=== PATIENT | male | born 1930 | race Caucasian/White ===

== ENCOUNTER 2018-12-05 07:22 | Outpatient (CLI) | payer MEDICARE ==
--- NOTE | 2018-12-05 08:34 | RAD ---
CHEST 1 VIEW: INDICATION: History of fever and shortness of breath. COMPARISON: Prior study dated 12/15/2012. FINDINGS: Elevation of the right hemidiaphragm and right basilar atelectasis persist. Cardiomegaly is similar- appearing. There is obscuration of the medial left hemidiaphragm which may be reflective of a retroc ardiac left lower lobe airspace opacity. The pulmonary vasculature is within normal limits. The lef t costophrenic angle is excluded. Chronic osseous changes are again noted. IMPRESSION: 1. Retrocardiac left lower lobe opacity may reflect subsegmental atelectasis or pneumonia. Two-view chest radiograph is recommended. 2. Persistent elevated right hemidiaphragm and right basilar atelectasis. 3. Cardiomegaly. POS: TPC
== END 2018-12-05 07:23 | disposition home or self-care (01) ==
LOC: RAD-FRANK 07:22
PROVIDERS: ATTEND Nurse Practitioner Family
DX: R06.02 Shortness of breath (principal); R50.9 Fever, unspecified; J98.11 Atelectasis; I51.7 Cardiomegaly; J98.6 Disorders of diaphragm
CPT/HCPCS: 71045; 71046

== ENCOUNTER 2018-12-05 10:45 | Inpatient (IN) | payer MEDICARE ==
[2018-12-05 11:28] LABS: Hemoglobin 14.2 g/dL (14.0-18.0); Mean Corpuscular HGB CONC 32.4 g/dL (32.0-36.0); Mean Corpuscular Hemoglobin 32.7 pg (27.0-31.0); Mean Platelet Volume 7.3 fL (7.4-10.4); Platelet Count 165 thou/uL (130-400); RBC Distribution Width 12.5 % (11.5-14.5); Red Blood Cell (RBC) Count 4.34 mill/uL (4.70-6.10); White Blood Cell (WBC) Count 11.5 thou/uL (4.8-10.8)
--- NOTE | 2018-12-05 11:37 | RAD ---
FXR Chest 1 View Portable History: Productive cough and shortness of breath Comparison: 12/15/2012 study Findings: Heart size is enlarged with postop sternotomy changes. There is elevation to the right elizabeth diaphragm. There appear to be some retrocardiac parenchymal change, this would be better assessed wit h a lateral view this suggests some infiltrate in this region. There are no signs of failure. Impression: Suggestion of some possible retrocardiac parenchymal infiltrate.
[2018-12-05 11:41] LABS: ALT (SGPT) 138 U/L (8-55); AST (SGOT) 137 U/L (5-34); Albumin 4.1 g/dL (3.4-4.8); Alkaline Phosphatase 64 U/L (40-150); Anion Gap 13 mmol/L (10-20); BUN (Urea Nitrogen) 27 mg/dL (8.4-25.7); Bilirubin, Total 0.7 mg/dL (0.2-1.2); CK (CPK) 498 U/L (30-200); Calc. Creatinine Clearance 0 mL/min (70-130); Calcium 9.6 mg/dL (7.8-10.44); Carbon Dioxide 28 mmol/L (23-31); Chloride 100 mmol/L (98-107); Estimated GFR-MDRD 43; Globulin 2.9 g/dL (2.4-3.5); Glucose 134 mg/dL (83-110); Potassium 4.1 mmol/L (3.5-5.1); Sodium 137 mmol/L (136-145)
[2018-12-05 11:48] LABS: Band 13 % (5-11); Lymphocytes 1 % (21-51); MDiff Complete? YES; Monocytes 2 % (0-10); Neutrophil 84 % (42-75); Platelet Morphology Comment Appears Adequate
--- NOTE | 2018-12-05 11:58 | RAD ---
FXR Chest 1 View Portable History: Possible retrocardiac infiltrate noted on chest x-ray Comparison: AP chest film done earlier Findings: The elevation to the right hemidiaphragm still makes it difficult to evaluate for retrocard iac infiltrate although slight increased density makes me suspicious there is some minimal infiltrate present. There appear to be compression changes of one of the lower thoracic vertebral bodies. The bones are v antonio demineralized. Impression: The lateral film does not definitively show a retrocardiac infiltrate but I'm still mildl y suspicious given the increased density. Overlap with the right hemidiaphragm makes assessment diffi cult.
[2018-12-05 12:15] LABS: CKMB 13.7 ng/mL (0-6.6)
[2018-12-05] MEDS ORDERED: cefTRIAXone\\ROCEPHIN 2 GM VIAL ONE (12:15)
[2018-12-05] MEDS ORDERED: Acetaminophen 325 MG TAB PO PRN (12:26)
[2018-12-05] MEDS ORDERED: Aspirin Chewable 81 MG TAB ONE (12:49)
[2018-12-05] MEDS ORDERED: Enoxaparin Sodium 60 MG/0.6 ML SYRINGE ONE (12:53)
[2018-12-05] MEDS ORDERED: methylPREDNISolone Sod Succ/PF 125 MG/2 ML VIAL IVP SCH (13:15)
[2018-12-05] MEDS ORDERED: Sodium Chloride 0.9% 1,000 ML IV SCH (13:15)
[2018-12-05] MEDS ORDERED: methylPREDNISolone Sod Succ/PF 125 MG/2 ML VIAL ONE (13:54)
[2018-12-05 15:06] LABS: Lactic Acid 2.2 mmol/L (0.5-2.2)
[2018-12-05 15:11] LABS: Troponin I 1.332 ng/mL (< 0.028)
[2018-12-05] MEDS ORDERED: cefTRIAXone Sodium 1 MG in Syringe 0 ML IVPB SCH (15:30)
[2018-12-05] MEDS ORDERED: Pantoprazole 40 MG VIAL ONE (15:39)
[2018-12-05] MEDS: Azithromycin 500 MG in Sodium Chloride 0.9% 250 ML 250 ML IVPB SCH (16:18)
[2018-12-05 17:35] VITALS: BMI 22.9
[2018-12-05 18:15] LABS: Critical Call Chem Troponin I RESULT DECREASING; Troponin I 1.287 ng/mL (< 0.028)
[2018-12-05] MEDS: Pantoprazole 40 MG VIAL IVP SCH (20:15)
[2018-12-05] MEDS: Enoxaparin Sodium 60 MG/0.6 ML SYRINGE SC SCH (20:15)
--- NOTE | 2018-12-05 21:50 | HP ---
CHIEF COMPLAINT: Shortness of breath. HISTORY OF PRESENT ILLNESS: The patient is an 88-year-old male with a history of CAD, who presents to the hospital with worsening shortness of breath x1 day. The patient's son who is at the bedside states that he has been having a cough and has been feeling weak for about a week. He went to the PCP on Saturday, got some antibiotics and steroids. However, the patient's symptoms worsened. This morning, the patient called his son stating that he was feeling unwell and when the son got there, the patient was wheezing and did not appear well, so he brought him to the hospital for further evaluation. PAST MEDICAL HISTORY: He has a history of CAD, hypertension, peptic ulcer disease, atrial fibrillation, currently rate controlled. PAST SURGICAL HISTORY: He has had a CABG and hip surgery. ALLERGIES: HE HAS NO KNOWN DRUG ALLERGIES. MEDICATIONS: 1. Amiodarone 200 mg daily. 2. Protonix 40 mg daily. 3. Aspirin 81 mg daily. 4. Lisinopril 20 mg daily. FAMILY HISTORY: No significant history of heart disease or cancer. REVIEW OF SYSTEMS: All negative except for the ones mentioned above in the HPI. PHYSICAL EXAMINATION: VITAL SIGNS: Are as of the following; temperature of 98.6, respirations 23, 98% on 3 L, blood pressure 112/80, pulse 71. GENERAL: The patient is awake, alert, very hard of hearing. Oriented x2. Does appear in respiratory distress. CV: S1, S2 present. No murmurs, rubs, or gallops. LUNGS: Significant wheezing and rhonchi heard all over lungs. ABDOMEN: Soft. Bowel sounds are present x2. Nontender upon palpation. EXTREMITIES: No edema. Pedal pulses are present x2. NEUROVASCULAR: No focal deficits noted. SKIN: No cuts lesions or bruises noted. HEENT: The patient is very hard of hearing. Pupils are equal and reactive to light. ASSESSMENT AND PLAN: The patient is an 88-year-old male who presents to the hospital with shortness of breath. 1. Sepsis. The patient was given 1 L of normal saline given his low EF back in 2012. According to the patient's family, he recently had an echocardiogram, maybe a few months ago, which also indicated a low EF. The patient denies any chest pain. We will start the patient on community-acquired antibiotics with ceftriaxone and azithromycin. We will start the patient on some Solu-Medrol and also DuoNeb. 2. Ghh-[id number] elevation myocardial infarction. The patient does have some T-wave inversions. However, I do not have a previous EKG for comparison. He is complaining of chest pain only when he is coughing. He does not complain of any pressure-like symptoms. His troponins are continued to trend up. This could be most likely secondary to heart strain; however, I will consult Cardiology for further evaluation and also start the patient on some subcu Lovenox. 3. Acute kidney injury. We will continue to monitor. I will refrain from giving the patient additional fluids given his poor ejection fraction. 4. Deep venous thrombosis prophylaxis. We will put the patient on SCDs. 5. Also the patient has had a history of significant gastrointestinal bleed in the past. We will put the patient on Protonix IV. Job ID: [id number]
[2018-12-06 05:22] LABS: #Lymphocytes 0.2 thou/uL (1.20-3.40); #Monocytes 0.5 thou/uL (0.11-0.59); #Neutrophils 7.5 thou/uL (1.40-6.50); %Basophils 0.2 % (0.0-1.0); %Eosinophils 0.1 % (0.0-10.0); %Lymphocytes 2.5 % (21.0-51.0); %Neutrophils 91.2 % (42.0-75.0); Hemoglobin 13.1 g/dL (14.0-18.0); Mean Corpuscular Hemoglobin 32.3 pg (27.0-31.0); Mean Platelet Volume 7.6 fL (7.4-10.4); Platelet Count 138 thou/uL (130-400); RBC Distribution Width 12.7 % (11.5-14.5); Red Blood Cell (RBC) Count 4.04 mill/uL (4.70-6.10); White Blood Cell (WBC) Count 8.3 thou/uL (4.8-10.8)
[2018-12-06 05:41] LABS: Anion Gap 10 mmol/L (10-20); BUN (Urea Nitrogen) 26 mg/dL (8.4-25.7); Calc. Creatinine Clearance 40 mL/min (70-130); Calcium 9.2 mg/dL (7.8-10.44); Carbon Dioxide 30 mmol/L (23-31); Chloride 105 mmol/L (98-107); Estimated GFR-MDRD 47; Glucose 127 mg/dL (83-110); Potassium 4.2 mmol/L (3.5-5.1); Sodium 141 mmol/L (136-145)
[2018-12-06] MEDS ORDERED: methylPREDNISolone Sod Succ 40 MG VIAL IVP SCH (09:00)
[2018-12-06] MEDS: Pantoprazole 40 MG VIAL IVP SCH ×2 (09:18→20:32)
[2018-12-06] MEDS: Amiodarone 200 MG TAB PO SCH (09:18)
[2018-12-06] MEDS: Enoxaparin Sodium 60 MG/0.6 ML SYRINGE SC SCH ×2 (09:18→20:32)
[2018-12-06] MEDS: cefTRIAXone\\ROCEPHIN 1 GM in Sodium Chloride 0.9% 100 ML IVPB SCH (11:20)
[2018-12-06] MEDS ORDERED: Sodium Chloride 3% (15 ML) NEB NEB SCH (13:30)
--- NOTE | 2018-12-06 13:31 | PDOC.PN ---
- Subjective Encounter Start Date: 12/06/18 Encounter Start Time: 13:30 Subjective: admitted with worsening cough, SOB, weakness ans wheezing. -: found to have NSTEMI. -: Feeling better but still coughing. - Objective Resuscitation Status - Order Detail: 12/05/18 12:26 Resuscitation Status Routine Resuscitation Status: FULL: Full Resuscitation Vital Signs & Weight: Vital Signs (12 hours) Temp Pulse Resp Pulse Ox 12/06/18 10:56 58 L 22 H 98 12/06/18 10:31 98.1 F 12/06/18 07:56 95 12/06/18 07:28 100 12/06/18 07:26 73 29 H 100 12/06/18 07:06 98.1 F 12/06/18 04:00 98.4 F 12/06/18 02:32 70 25 H 94 L Weight Weight 169 lb Most Recent Monitor Data Heart Rate from ECG 75 NIBP 124/68 NIBP BP-Mean 86 Respiration from ECG 28 SpO2 93 I&O: 12/05/18 12/06/18 12/07/18 06:59 06:59 06:59 Intake Total 980 Output Total 1300 Balance -320 Result Diagrams: 12/06/18 04:49 12/06/18 04:50 Phys Exam - Physical Examination elderly male in no distress. afebrile HEENT: PERRLA, moist MMs Neck: supple fair air entry wuith transmitted sound and few rhonchi Cardiovascular: RRR Gastrointestinal: non-tender, positive bowel sounds Musculoskeletal: no edema, pulses present Neurological: non-focal, moves all 4 limbs Psychiatric: A&O x 3 Dx/Plan (1) Acute respiratory failure with hypoxia Code(s): J96.01 - ACUTE RESPIRATORY FAILURE WITH HYPOXIA Status: Acute (2) NSTEMI (non-ST elevated myocardial infarction) Code(s): I21.4 - NON-ST ELEVATION (NSTEMI) MYOCARDIAL INFARCTION Status: Acute (3) Sepsis Code(s): A41.9 - SEPSIS, UNSPECIFIED ORGANISM Status: Acute (4) HTN (hypertension) Code(s): I10 - ESSENTIAL (PRIMARY) HYPERTENSION Status: Acute (5) Paroxysmal atrial fibrillation with rapid ventricular response Code(s): I48.0 - PAROXYSMAL ATRIAL FIBRILLATION Status: Acute (6) BEAR (acute kidney injury) Code(s): N17.9 - ACUTE KIDNEY FAILURE, UNSPECIFIED Status: Acute - Plan Continue antibiotics, steroid, oxygen and bronchodilators -: Start gentle IV hydration -: Start mucolyics. -: Continue antithrombotic therapy for NSTEMI. -: Awaiting cardiology input. Monitor renal function. * .
--- NOTE | 2018-12-06 14:10 | CON ---
DATE OF CONSULTATION: 12/06/2018 REASON FOR CONSULTATION: Elevated troponin. PRIMARY POOLROOM TABLE ATTENDANT: Dr. Cassia Corbett. HISTORY OF PRESENT ILLNESS: Mr. Johnson is an 88-year-old gentleman with previous history of CAD, status post bypass surgery. He recently presented with increased cough and congestion. No chest pain or pressure noted. He also had associated shortness of breath. He states he currently is feeling a little better. His troponin was elevated, therefore prompting the consultation. PAST MEDICAL HISTORY: 1. CAD, status post bypass surgery. 2. Hypertension. 3. Peptic ulcer disease. 4. Atrial fibrillation. MEDICATIONS: Include; 1. Amiodarone. 2. Protonix. 3. Aspirin. 4. Lisinopril. ALLERGIES: NONE. FAMILY HISTORY: Negative for CAD. REVIEW OF SYSTEMS: A 10-point review of systems is reviewed and as above, otherwise negative. PHYSICAL EXAMINATION: GENERAL: Patient is a pleasant male, who is in no acute distress. The patient appears their stated age. He is currently hard of hearing. VITAL SIGNS: Blood pressure 124/68, pulse 59, temperature afebrile. NEUROLOGIC: The patient is alert and oriented x3 with no focal neurologic deficits. HEENT: Sclerae without icterus. Mouth has moist mucous membranes with normal pallor. NECK: No JVD. Carotid upstroke brisk. No bruits bilaterally. LUNGS: Clear to auscultation with unlabored respirations. BACK: No scoliosis or kyphosis. CARDIAC: Irregularly irregular. ABDOMEN: Soft, nontender, nondistended. No peritoneal signs present. No hepatosplenomegaly. No abnormal striae. EXTREMITIES: 2+ femoral and 2+ dorsalis pedis pulses. No cyanosis, clubbing, or edema. SKIN: No gross abnormalities. PERTINENT LABORATORY DATA: Hemoglobin 13.1. Creatinine 1.42. Peak troponin 1.3. Chest x-ray dated 12/05/2018, retrocardiac parenchymal infiltrate. IMPRESSION: 1. Pneumonia. 2. Coronary artery disease. 3. Status post bypass surgery. 4. Elevated troponin, likely type-2 myocardial infarction. RECOMMENDATIONS: We will continue conservative therapy. He has no current symptoms suggesting unstable angina or unstable plaque. We will continue amiodarone as prescribed. I am unsure why he is not on anticoagulation therapy. I will read his previous office notes. He is currently on Lovenox subcu q.12h, we will decrease to subcu q.a.m. Job ID: [id number]
[2018-12-06] MEDS: Azithromycin 500 MG in Sodium Chloride 0.9% 250 ML 250 ML IVPB SCH (14:57)
[2018-12-06] MEDS: Sodium Chloride 0.9% 1,000 ML IV SCH (14:58)
[2018-12-06] MEDS: Benzonatate 100 MG CAP PO SCH ×2 (14:58→20:31)
[2018-12-06] MEDS: Sodium Chloride 3% (15 ML) NEB NEB SCH ×2 (15:21→19:18)
[2018-12-06] MEDS: methylPREDNISolone Sod Succ 40 MG VIAL IVP SCH (17:53)
[2018-12-06] MEDS: guaiFENesin ER 600 MG TAB PO SCH (20:32)
[2018-12-06] MEDS ORDERED: guaiFENesin ER 600 MG TAB PO SCH (21:00)
[2018-12-07] MEDS: methylPREDNISolone Sod Succ 40 MG VIAL IVP SCH ×5 (00:17→23:49)
--- NOTE | 2018-12-07 01:46 | CON ---
DATE OF CONSULTATION: 12/06/2018 HISTORY OF PRESENT ILLNESS: Mr. Johnson is an 88-year-old male who is admitted with a diagnosis of pneumonia. He has a history of vascular disease/coronary artery disease. He has recently started antibiotics and steroids, but had not improved. Brought to the hospital and has been admitted to the intermediate care unit. He says he is feeling about the same. He is coughing continuously. PAST MEDICAL HISTORY: Remarkable for, 1. Coronary artery disease. 2. Hypertension. 3. Ulcer disease. 4. History of atrial fibrillation. 5. History of coronary artery bypass grafting. 6. History of hip surgery. ALLERGIES: HE HAS NO KNOWN DRUG ALLERGIES. MEDICATIONS: He is on amiodarone, Protonix, aspirin, lisinopril. FAMILY HISTORY: Negative for lung disease in early age. SOCIAL HISTORY: Unknown. REVIEW OF SYSTEMS: Ten-point review of systems complted, remarkable only for cough, mild shortness of breath. PHYSICAL EXAMINATION: GENERAL: He appears his age. VITAL SIGNS: He is afebrile. Heart rate is 58, respiratory rate is 19, oximetry is 97% on 2 L, blood pressure 108/57. HEAD: Unremarkable. NECK: Unremarkable. LUNGS: Remarkable for rhonchi bilaterally. HEART: Regular rhythm. S1 and S2 normal. ABDOMEN: Soft and nontender. EXTREMITIES: Without clubbing, cyanosis, or edema. LABORATORY DATA: White count 8.3, hemoglobin 13.1, platelets 138,000. Electrolytes are unremarkable. BUN 26, creatinine 1.42. BNP was 573. Chest radiograph shows an elevated hemidiaphragm. It is hard to know whether he has an infiltrate at his base but certainly acts like he has pneumonia. I doubt he has an amiodarone hypersensitivity reaction causing his symptoms. Some of this may be secondary to congestive heart failure as he does have patchy increasing interstitial markings bilaterally on chest x-ray. We will try to move forward with cough suppression, Mucinex and echocardiogram will be checked. We will continue with steroids and antibiotics. TIME SPENT: This is a 50-minute consult, with greater than 50% of the time spent on the unit coordinating care. Job ID: [id number] [facility] HOSPITALDaron
[2018-12-07] MEDS: Sodium Chloride 3% (15 ML) NEB NEB SCH (07:31)
[2018-12-07] MEDS: Enoxaparin Sodium 60 MG/0.6 ML SYRINGE SC SCH (09:02)
[2018-12-07] MEDS: Amiodarone 200 MG TAB PO SCH (09:02)
[2018-12-07] MEDS: Pantoprazole 40 MG VIAL IVP SCH ×2 (09:02→20:11)
[2018-12-07] MEDS: guaiFENesin ER 600 MG TAB PO SCH ×2 (09:02→20:11)
[2018-12-07] MEDS: Benzonatate 100 MG CAP PO SCH ×3 (09:04→20:10)
--- NOTE | 2018-12-07 11:21 | PDOC.CTH ---
Cardiology Progress Note - Subjective Mainly complaining of cough/ No CP - Objective Vital Signs Temp Pulse Resp BP Pulse Ox 12/07/18 10:36 62 20 99 12/07/18 08:00 98 12/07/18 07:30 57 L 20 97 12/07/18 04:00 97.8 F 60 24 H 106/50 L 97 12/07/18 02:43 59 L 15 97 12/07/18 00:56 96.8 F L Weight 169 lb 11.2 oz 12/06/18 12/07/18 12/08/18 06:59 06:59 06:59 Intake Total 980 870 Output Total 1300 1410 250 Balance -320 -540 -250 - Physical Examination General/Neuro: alert & oriented x3, NAD Neck: carotid US brisk, no JVD present Lungs: other: (rhonchi, rales bilaterally (R>L)) Heart: PMI normal, RRR Abdomen: no HSM, NT/ND Extremities: + femoral B - Labs Result Diagrams: 12/06/18 04:49 12/06/18 04:50 Troponin/CKMB CK-MB (CK-2) 13.7 ng/mL (0-6.6) H* 12/05/18 11:12 Troponin I 1.287 ng/mL (< 0.028) H* 12/05/18 17:37 - Assessment/Plan Type 2 OR CAD S/p CABG Pneumonia Atrial fibrillation No new recommendations Add ASA Avoid BB till lung status improves Abx
[2018-12-07] MEDS: Sodium Chloride 0.9% 1,000 ML IV SCH (11:55)
[2018-12-07] MEDS: cefTRIAXone\\ROCEPHIN 1 GM in Sodium Chloride 0.9% 100 ML IVPB SCH (11:55)
--- NOTE | 2018-12-07 12:21 | PRG ---
DATE OF SERVICE: 12/07/2018 SUBJECTIVE: Mr. Johnson is still coughing continuously. A lot of his cough to me sounds like a posterior pharyngeal drainage cough. OBJECTIVE: VITAL SIGNS: Heart rate is 62, respiratory rate is 20, oximetry is 99, and blood pressure 108/59. LUNGS: Remarkable for coarse equal breath sounds. HEART: Regular rhythm. ABDOMEN: Soft. EXTREMITIES: Without edema. NEURO: Grossly nonfocal. IMPRESSION: 1. Pneumonia with asthmatic bronchitis. 2. Component of upper airway cough. 3. Left ventricular systolic dysfunction, that is chronic. 4. History of coronary artery bypass grafting in the past. 5. Atrial fibrillation, on Lovenox once a day now. We will add scopolamine patch. We will add Robitussin with codeine around the clock. We will continue with Tessalon Perles around the clock. I will repeat a chest x-ray in the morning. We will continue with IV steroids. We will continue nebulizer treatments. I do not feel his cough is pulmonary edema mediated at this time, but there may be a component of this. We will continue to follow the other physicians caring for him. Job ID: [id number]
[2018-12-07] MEDS ORDERED: Ipratropium Bromide 0.06% Nasal Inhaler 15ml NASAL SCH (13:00)
--- NOTE | 2018-12-07 15:18 | PDOC.PN ---
- Subjective Encounter Start Date: 12/07/18 Encounter Start Time: 15:17 Subjective: Still with frequent cough and SOB. -: No fever of chest pain. - Objective Resuscitation Status - Order Detail: 12/05/18 12:26 Resuscitation Status Routine Resuscitation Status: FULL: Full Resuscitation Vital Signs & Weight: Vital Signs (12 hours) Temp Pulse Resp BP Pulse Ox 12/07/18 13:45 73 18 100 12/07/18 10:36 62 20 99 12/07/18 08:00 98 12/07/18 07:30 57 L 20 97 12/07/18 04:00 97.8 F 60 24 H 106/50 L 97 Weight Weight 169 lb 11.2 oz Most Recent Monitor Data Heart Rate from ECG 64 NIBP 108/59 NIBP BP-Mean 75 Respiration from ECG 19 SpO2 99 I&O: 12/06/18 12/07/18 12/08/18 06:59 06:59 06:59 Intake Total 980 870 Output Total 1300 1410 250 Balance -320 -540 -250 Result Diagrams: 12/06/18 04:49 12/06/18 04:50 Phys Exam - Physical Examination elderly male in some respiratory distrress HEENT: moist MMs Neck: no JVD, supple fair air entry with transmitted sound and scattered rhonchi Cardiovascular: irregular Gastrointestinal: soft, non-tender, positive bowel sounds Musculoskeletal: no edema Neurological: non-focal Awake and conversational. very hard of hearing Psychiatric: A&O x 3 Dx/Plan (1) Acute respiratory failure with hypoxia Code(s): J96.01 - ACUTE RESPIRATORY FAILURE WITH HYPOXIA Status: Acute (2) NSTEMI (non-ST elevated myocardial infarction) Code(s): I21.4 - NON-ST ELEVATION (NSTEMI) MYOCARDIAL INFARCTION Status: Acute (3) Sepsis Code(s): A41.9 - SEPSIS, UNSPECIFIED ORGANISM Status: Acute (4) HTN (hypertension) Code(s): I10 - ESSENTIAL (PRIMARY) HYPERTENSION Status: Acute (5) Paroxysmal atrial fibrillation with rapid ventricular response Code(s): I48.0 - PAROXYSMAL ATRIAL FIBRILLATION Status: Acute (6) BEAR (acute kidney injury) Code(s): N17.9 - ACUTE KIDNEY FAILURE, UNSPECIFIED Status: Acute - Plan Broaden antibiotic by substituting rocephin anad azithromycin with levaquin -: Increase LR to 75 cc/hr.Continue other treatments -: get repeat BMP. Continue steroid and bronchodilators * .
[2018-12-07] MEDS: Scopolamine 1.5 mg/72 hour Patch TD SCH (15:22)
[2018-12-07] MEDS: guaiFENesin/Codeine Phosphate 200 mg/20 mg 10 ml UD Cup PO SCH ×3 (15:22→20:10)
[2018-12-07 16:58] LABS: Anion Gap 13 mmol/L (10-20); BUN (Urea Nitrogen) 30 mg/dL (8.4-25.7); Calc. Creatinine Clearance 42 mL/min (70-130); Carbon Dioxide 28 mmol/L (23-31); Chloride 105 mmol/L (98-107); Estimated GFR-MDRD 50; Glucose 127 mg/dL (83-110); Potassium 4.9 mmol/L (3.5-5.1); Sodium 141 mmol/L (136-145)
[2018-12-08] MEDS: guaiFENesin/Codeine Phosphate 200 mg/20 mg 10 ml UD Cup PO SCH ×6 (00:37→20:38)
[2018-12-08 05:16] LABS: Anion Gap 9 mmol/L (10-20); BUN (Urea Nitrogen) 28 mg/dL (8.4-25.7); Calc. Creatinine Clearance 46 mL/min (70-130); Carbon Dioxide 33 mmol/L (23-31); Chloride 104 mmol/L (98-107); Estimated GFR-MDRD 56; Glucose 128 mg/dL (83-110); Potassium 4.8 mmol/L (3.5-5.1); Sodium 141 mmol/L (136-145)
[2018-12-08] MEDS: methylPREDNISolone Sod Succ 40 MG VIAL IVP SCH ×3 (05:59→17:34)
[2018-12-08] MEDS: Sodium Chloride 0.9% 1,000 ML IV SCH (06:06)
[2018-12-08] MEDS: Ipratropium Bromide 0.06% Nasal Inhaler 15ml NASAL SCH ×3 (06:30→20:41)
[2018-12-08] MEDS: Sodium Chloride 3% (15 ML) NEB NEB SCH (06:33)
[2018-12-08] MEDS: Amiodarone 200 MG TAB PO SCH (09:21)
[2018-12-08] MEDS: Aspirin 81 mg Enteric Coated Tablet PO SCH (09:22)
[2018-12-08] MEDS: Benzonatate 100 MG CAP PO SCH ×3 (09:22→20:38)
[2018-12-08] MEDS: guaiFENesin ER 600 MG TAB PO SCH ×2 (09:22→20:38)
[2018-12-08] MEDS: Enoxaparin Sodium 60 MG/0.6 ML SYRINGE SC SCH (09:23)
--- NOTE | 2018-12-08 10:37 | PDOC.PN ---
- Subjective Encounter Start Date: 12/08/18 Encounter Start Time: 10:36 Subjective: Still coughing but better. -: Remained afebrile. - Objective Resuscitation Status - Order Detail: 12/05/18 12:26 Resuscitation Status Routine Resuscitation Status: FULL: Full Resuscitation Vital Signs & Weight: Vital Signs (12 hours) Temp Pulse Resp BP Pulse Ox 12/08/18 10:29 97.6 F 12/08/18 10:11 74 19 100 12/08/18 09:27 81 18 137/79 99 12/08/18 08:00 64 20 153/81 H 99 12/08/18 07:15 64 21 H 99 12/08/18 07:08 97.6 F 12/08/18 04:00 98.0 F 61 20 120/57 L 99 12/08/18 02:30 63 19 94 L 12/08/18 02:00 56 L 16 108/55 L 98 12/08/18 00:00 75 21 H 119/80 97 12/07/18 23:45 97.6 F Weight Weight 169 lb 6.4 oz Most Recent Monitor Data Heart Rate from ECG 60 NIBP 108/55 NIBP BP-Mean 72 Respiration from ECG 18 SpO2 98 I&O: 12/07/18 12/08/18 12/09/18 06:59 06:59 06:59 Intake Total 870 2150 Output Total 1410 1470 Balance -540 680 Result Diagrams: 12/06/18 04:49 12/08/18 04:37 Phys Exam - Physical Examination afebrile, anicteric, no distress HEENT: PERRLA, moist MMs Neck: no JVD, supple fair air entry with scattered rhonchi Cardiovascular: RRR Gastrointestinal: soft, non-tender, no distention, positive bowel sounds Musculoskeletal: no edema, pulses present Neurological: non-focal, moves all 4 limbs Hard of hearing Psychiatric: A&O x 3 Dx/Plan (1) Acute respiratory failure with hypoxia Code(s): J96.01 - ACUTE RESPIRATORY FAILURE WITH HYPOXIA Status: Acute Comment: Improving. (2) NSTEMI (non-ST elevated myocardial infarction) Code(s): I21.4 - NON-ST ELEVATION (NSTEMI) MYOCARDIAL INFARCTION Status: Acute (3) Sepsis Code(s): A41.9 - SEPSIS, UNSPECIFIED ORGANISM Status: Acute (4) HTN (hypertension) Code(s): I10 - ESSENTIAL (PRIMARY) HYPERTENSION Status: Acute (5) Paroxysmal atrial fibrillation with rapid ventricular response Code(s): I48.0 - PAROXYSMAL ATRIAL FIBRILLATION Status: Acute (6) BEAR (acute kidney injury) Code(s): N17.9 - ACUTE KIDNEY FAILURE, UNSPECIFIED Status: Acute Comment: Improving with IVF - Plan Continue IV levaquin, steroid, bronchodilators and oxygen -: Continue cough suppressants. increase 3% nasal saline neb to q6h -: Monitor renal function. -: can be transfered out of IMCU -: Continue antithrombotic therapy * .
--- NOTE | 2018-12-08 11:42 | PRG ---
DATE OF SERVICE: 12/08/2018 SUBJECTIVE: Mr. Johnson is still coughing, but he says he is a little better. OBJECTIVE: VITAL SIGNS: He is afebrile, heart rate 74, respiratory rate 19, oximetry is 100%, blood pressure 137/79. Intake and output, positive 680. LUNGS: Remarkable for faint wheezes, crackles at both lung bases. HEART: Regular rhythm. ABDOMEN: Soft. IMPRESSION: 1. Asthmatic bronchitis. 2. Cardiomyopathy. 3. Pneumonia. 4. History of coronary artery bypass grafting. 5. Atrial fibrillation. PLAN: We will continue supportive care. Probably need to keep him in a little bit of a negative fluid balance if possible. His renal function is improving. He has acute on chronic renal dysfunction. Job ID: [id number]
--- NOTE | 2018-12-08 13:36 | PDOC.CTH ---
Cardiology Progress Note - Subjective The pt seen and examined. No overnight events. No cardiac complaints. He complains of mild CP with coughing only. - Objective Vital Signs Temp Pulse Resp BP Pulse Ox 12/08/18 11:54 84 21 H 145/83 H 92 L 12/08/18 10:29 97.6 F 12/08/18 10:11 74 19 100 12/08/18 09:27 81 18 137/79 99 12/08/18 08:00 64 20 153/81 H 99 12/08/18 07:15 64 21 H 99 12/08/18 07:08 97.6 F 12/08/18 04:00 98.0 F 61 20 120/57 L 99 12/08/18 02:30 63 19 94 L 12/08/18 02:00 56 L 16 108/55 L 98 Weight 169 lb 6.4 oz 12/07/18 12/08/18 12/09/18 06:59 06:59 06:59 Intake Total 870 2150 Output Total 1410 1470 Balance -540 680 - Physical Examination General/Neuro: alert & oriented x3 Neck: no JVD present Lungs: other: (coarses) Heart: RRR Abdomen: soft Extremities: other: (No edema) - Telemetry Telemetry Rhythm: SR - Labs Result Diagrams: 12/09/18 05:31 12/09/18 05:31 Troponin/CKMB CK-MB (CK-2) 13.7 ng/mL (0-6.6) H* 12/05/18 11:12 Troponin I 1.287 ng/mL (< 0.028) H* 12/05/18 17:37 - Assessment/Plan 1. NSTEMI 2/2 possible demand ischemia - stable; No ECG changed 2. PNA - on IV ABx; managed by PCP 3. CAD with s/p CABG x3 in 2012 - 4. Hx of Post-op Afib - in SR; on ASA 81mg qd and Amiodarone 200mg qd 5. HTN - stable; Avoid BB till lung status improves 6. Hyperlipidemia - on Statin MAR reviewed * Echo on 12/06/2018 with EF 35-40% (20-25% in 2017), mild-mod MR and mod TR. Pt. seen and eval. by me. I agree with the A/P by the FIELD SALES MANAGER. He is still coughing. Scattered rhonchi. RRR. Cardiac status is stable. gjm Review of Systems - Review of Systems Constitutional: reports: no symptoms reported EENTM: reports: no symptoms reported Respiratory: reports: see HPI Cardiac (ROS): reports: no symptoms reported ABD/GI: reports: no symptoms reported : reports: no symptoms reported
[2018-12-09] MEDS: guaiFENesin/Codeine Phosphate 200 mg/20 mg 10 ml UD Cup PO SCH ×6 (00:28→20:48)
[2018-12-09] MEDS: methylPREDNISolone Sod Succ 40 MG VIAL IVP SCH ×3 (00:29→13:15)
[2018-12-09] MEDS: Sodium Chloride 0.9% 1,000 ML IV SCH (00:47)
[2018-12-09 06:00] LABS: #Lymphocytes 0.4 thou/uL (1.20-3.40); #Monocytes 0.4 thou/uL (0.11-0.59); #Neutrophils 7.3 thou/uL (1.40-6.50); %Eosinophils 0.2 % (0.0-10.0); %Lymphocytes 5.2 % (21.0-51.0); %Monocytes 5.2 % (0.0-10.0); %Neutrophils 89.4 % (42.0-75.0); Hemoglobin 13.6 g/dL (14.0-18.0); Mean Corpuscular HGB CONC 30.6 g/dL (32.0-36.0); Mean Corpuscular Hemoglobin 31.9 pg (27.0-31.0); Mean Platelet Volume 7.2 fL (7.4-10.4); Platelet Count 185 thou/uL (130-400); RBC Distribution Width 12.5 % (11.5-14.5); Red Blood Cell (RBC) Count 4.27 mill/uL (4.70-6.10); White Blood Cell (WBC) Count 8.2 thou/uL (4.8-10.8)
[2018-12-09 06:12] LABS: Anion Gap 11 mmol/L (10-20); BUN (Urea Nitrogen) 29 mg/dL (8.4-25.7); Calc. Creatinine Clearance 51 mL/min (70-130); Calcium 9.3 mg/dL (7.8-10.44); Carbon Dioxide 33 mmol/L (23-31); Chloride 102 mmol/L (98-107); Estimated GFR-MDRD 62; Glucose 127 mg/dL (83-110); Sodium 141 mmol/L (136-145)
[2018-12-09] MEDS: Enoxaparin Sodium 60 MG/0.6 ML SYRINGE SC SCH (09:47)
[2018-12-09] MEDS: Amiodarone 200 MG TAB PO SCH (09:47)
[2018-12-09] MEDS: Benzonatate 100 MG CAP PO SCH ×3 (09:47→20:48)
[2018-12-09] MEDS: Aspirin 81 mg Enteric Coated Tablet PO SCH (09:47)
[2018-12-09] MEDS: Ipratropium Bromide 0.06% Nasal Inhaler 15ml NASAL SCH ×2 (09:47→20:54)
[2018-12-09] MEDS: guaiFENesin ER 600 MG TAB PO SCH ×2 (09:47→20:49)
--- NOTE | 2018-12-09 16:23 | PRG ---
DATE OF SERVICE: 12/09/2018 SUBJECTIVE: Mr. Johnson says his cough is finally better. OBJECTIVE: VITAL SIGNS: He is afebrile, heart rate is 58, respiratory rate is 20, oximetry is 100% on 2 L, blood pressure 116/61. LUNGS: Clear today. HEART: Regular rhythm. ABDOMEN: Soft. IMPRESSION: 1. Asthmatic bronchitis. 2. Pneumonia. 3. Elevated troponin likely demand ischemia. 4. Left ventricular systolic dysfunction with an ejection fraction of 35% to 40%, [id number] mitral regurgitation. This is not felt to be a significant contributing factor with this admission. PLAN: We will continue to follow the other physicians. He is stable to move out of the intermediate care unit in my opinion. There apparently have been no beds available. He remains anticoagulated with Lovenox. His Levaquin can be switched to p.o., steroids can be switched to p.o. in my opinion as well. I do not feel the amiodarone is contributing to his cough. Job ID: [id number]
--- NOTE | 2018-12-09 17:34 | PDOC.PN ---
- Subjective Encounter Start Date: 12/09/18 Encounter Start Time: 17:33 Subjective: Coughing is subsiding. Feeling better. -: no fever or sputumproduction. - Objective Resuscitation Status - Order Detail: 12/05/18 12:26 Resuscitation Status Routine Resuscitation Status: FULL: Full Resuscitation Vital Signs & Weight: Vital Signs (12 hours) Temp Pulse Resp Pulse Ox 12/09/18 14:49 97.0 F L 12/09/18 14:04 58 L 20 100 12/09/18 10:35 96.8 F L 12/09/18 10:10 105 H 18 93 L 12/09/18 08:15 97 12/09/18 07:31 100 12/09/18 07:30 72 23 H 100 12/09/18 07:10 97.0 F L Weight Weight 170 lb 3.2 oz Most Recent Monitor Data Heart Rate from ECG 66 NIBP 124/64 NIBP BP-Mean 84 Respiration from ECG 23 SpO2 97 I&O: 12/08/18 12/09/18 12/10/18 06:59 06:59 06:59 Intake Total 2150 2533 Output Total 1470 1560 1000 Balance 680 973 -1000 Result Diagrams: 12/09/18 05:31 12/09/18 05:31 Phys Exam - Physical Examination Constitutional: NAD HEENT: PERRLA, moist MMs Neck: no JVD fair air entry with scattered transmitted sound and few rhonchi Cardiovascular: RRR, no significant murmur Gastrointestinal: soft, non-tender, no distention, positive bowel sounds Musculoskeletal: no edema, pulses present Neurological: non-focal, moves all 4 limbs hard of hearing Psychiatric: A&O x 3 Dx/Plan (1) Acute respiratory failure with hypoxia Code(s): J96.01 - ACUTE RESPIRATORY FAILURE WITH HYPOXIA Status: Acute Comment: Improving. (2) NSTEMI (non-ST elevated myocardial infarction) Code(s): I21.4 - NON-ST ELEVATION (NSTEMI) MYOCARDIAL INFARCTION Status: Acute (3) Sepsis Code(s): A41.9 - SEPSIS, UNSPECIFIED ORGANISM Status: Acute (4) HTN (hypertension) Code(s): I10 - ESSENTIAL (PRIMARY) HYPERTENSION Status: Acute (5) Paroxysmal atrial fibrillation with rapid ventricular response Code(s): I48.0 - PAROXYSMAL ATRIAL FIBRILLATION Status: Acute Comment: Currently in sinus (6) BEAR (acute kidney injury) Code(s): N17.9 - ACUTE KIDNEY FAILURE, UNSPECIFIED Status: Acute Comment: Resolved with IVF - Plan Continue antibiotics, steroid and bronchodilators -: DC IVF and lovenox anticoagulation -: Start lovenox for DVT prophylaxis -: Wean oxygen astolerated. * .
[2018-12-10] MEDS: guaiFENesin/Codeine Phosphate 200 mg/20 mg 10 ml UD Cup PO SCH ×6 (01:43→20:35)
[2018-12-10 05:42] LABS: Anion Gap 12 mmol/L (10-20); BUN (Urea Nitrogen) 27 mg/dL (8.4-25.7); Calc. Creatinine Clearance 57 mL/min (70-130); Calcium 9.2 mg/dL (7.8-10.44); Carbon Dioxide 31 mmol/L (23-31); Chloride 102 mmol/L (98-107); Estimated GFR-MDRD 70; Glucose 112 mg/dL (83-110); Potassium 4.8 mmol/L (3.5-5.1); Sodium 140 mmol/L (136-145)
[2018-12-10] MEDS: Benzonatate 100 MG CAP PO SCH ×3 (09:13→20:35)
[2018-12-10] MEDS: guaiFENesin ER 600 MG TAB PO SCH ×2 (09:14→20:35)
[2018-12-10] MEDS: Aspirin 81 mg Enteric Coated Tablet PO SCH (09:14)
[2018-12-10] MEDS: Enoxaparin Sodium 60 MG/0.6 ML SYRINGE SC SCH (09:14)
[2018-12-10] MEDS: Amiodarone 200 MG TAB PO SCH (09:14)
[2018-12-10] MEDS: predniSONE 20 MG TAB PO SCH (09:14)
[2018-12-10] MEDS: Ipratropium Bromide 0.06% Nasal Inhaler 15ml NASAL SCH ×2 (09:21→21:38)
--- NOTE | 2018-12-10 11:59 | PDOC.CTH ---
Cardiology Progress Note - Subjective The pt seen and examined. No overnight events. No cardiac complaints. He cont. having intermittent cough. - Objective Vital Signs Temp Pulse Resp Pulse Ox 12/10/18 10:25 69 21 H 12/10/18 07:36 94 L 12/10/18 07:34 61 21 H 12/10/18 04:02 97.2 F L 12/10/18 02:20 63 12 97 Weight 171 lb 3.2 oz 12/09/18 12/10/18 12/11/18 06:59 06:59 06:59 Intake Total 2533 720 Output Total 1560 1900 200 Balance 973 -1180 -200 - Physical Examination General/Neuro: alert & oriented x3 Neck: no JVD present Lungs: other: (coarses and diminished at bases) Heart: RRR Abdomen: soft Extremities: other: (No edema) - Telemetry Telemetry Rhythm: SR - Labs Result Diagrams: 12/09/18 05:31 12/10/18 05:02 Troponin/CKMB CK-MB (CK-2) 13.7 ng/mL (0-6.6) H* 12/05/18 11:12 Troponin I 1.287 ng/mL (< 0.028) H* 12/05/18 17:37 - Assessment/Plan 1. NSTEMI 2/2 possible demand ischemia - stable; No ECG changed; cont. to monitor on tele 2. PNA - on ABx; managed by PCP 3. CAD with s/p CABG x3 in 2012 - 4. Hx of Post-op Afib in 2013 - in SR; on ASA 81mg qd and Amiodarone 200mg qd 5. HTN - stable; Avoid BB till lung status improves 6. Hyperlipidemia - on Statin MAR reviewed * Echo on 12/06/2018 with EF 35-40% (20-25% in 2017), mild-mod MR and mod TR. Pt. seen and eval. by me. I agree with the A/P by the HAND ROUNDER. He is doing better. Decreased cough. Chest with scattered rhonchi. RRR. Approx. 4x5 cm lesion on the upper back that is suspicious for skin cancer. Prob. should need eval. by dermatology or general surgeon. Cardiac status is stable. Review of Systems - Review of Systems Constitutional: reports: weakness EENTM: reports: no symptoms reported Respiratory: reports: no symptoms reported, SOB with excertion, SOB at rest Cardiac (ROS): reports: no symptoms reported ABD/GI: reports: no symptoms reported : reports: no symptoms reported Musculoskeletal: reports: no symptoms reported
[2018-12-10] MEDS: Scopolamine 1.5 mg/72 hour Patch TD SCH (13:39)
[2018-12-10] MEDS: Milk Of Magnesia 30 ML UDCUP PO PRN (13:41)
--- NOTE | 2018-12-10 19:38 | PDOC.PN ---
- Subjective Encounter Start Date: 12/10/18 Encounter Start Time: 19:36 Subjective: Feeling better. coughing is subsiding. - Objective Resuscitation Status - Order Detail: 12/05/18 12:26 Resuscitation Status Routine Resuscitation Status: FULL: Full Resuscitation Vital Signs & Weight: Vital Signs (12 hours) Temp Pulse Resp BP Pulse Ox 12/10/18 18:30 60 18 91 L 12/10/18 17:28 68 16 154/81 H 93 L 12/10/18 14:48 64 20 96 12/10/18 14:34 99.1 F 70 16 152/91 H 97 12/10/18 10:25 69 21 H Weight Weight 171 lb 3.2 oz Most Recent Monitor Data Heart Rate from ECG 78 NIBP 121/102 NIBP BP-Mean 108 Respiration from ECG 24 SpO2 94 I&O: 12/09/18 12/10/18 12/11/18 06:59 06:59 06:59 Intake Total 2533 720 637 Output Total 1560 1900 920 Balance 973 -1180 -283 Result Diagrams: 12/09/18 05:31 12/10/18 05:02 Phys Exam - Physical Examination Constitutional: NAD HEENT: moist MMs Neck: supple fair air entry with transmitted sound and few scattered rhonchi Cardiovascular: RRR Gastrointestinal: soft, no distention, positive bowel sounds Musculoskeletal: no edema Neurological: non-focal, moves all 4 limbs Hard of hearing. Psychiatric: A&O x 3 Dx/Plan (1) Acute respiratory failure with hypoxia Code(s): J96.01 - ACUTE RESPIRATORY FAILURE WITH HYPOXIA Status: Acute Comment: Improving. (2) NSTEMI (non-ST elevated myocardial infarction) Code(s): I21.4 - NON-ST ELEVATION (NSTEMI) MYOCARDIAL INFARCTION Status: Acute (3) Sepsis Code(s): A41.9 - SEPSIS, UNSPECIFIED ORGANISM Status: Acute (4) HTN (hypertension) Code(s): I10 - ESSENTIAL (PRIMARY) HYPERTENSION Status: Acute (5) Paroxysmal atrial fibrillation with rapid ventricular response Code(s): I48.0 - PAROXYSMAL ATRIAL FIBRILLATION Status: Acute Comment: Currently in sinus (6) BEAR (acute kidney injury) Code(s): N17.9 - ACUTE KIDNEY FAILURE, UNSPECIFIED Status: Acute Comment: Resolved with IVF (7) Physical deconditioning Code(s): R53.81 - OTHER MALAISE Status: Acute - Plan Continue current treatments -: Start IS -: Consult PT/OT * .
[2018-12-11] MEDS: guaiFENesin/Codeine Phosphate 200 mg/20 mg 10 ml UD Cup PO SCH ×6 (01:22→19:47)
[2018-12-11 05:08] LABS: Anion Gap 10 mmol/L (10-20); BUN (Urea Nitrogen) 27 mg/dL (8.4-25.7); Calc. Creatinine Clearance 60 mL/min (70-130); Calcium 9.2 mg/dL (7.8-10.44); Carbon Dioxide 35 mmol/L (23-31); Chloride 99 mmol/L (98-107); Estimated GFR-MDRD 74; Glucose 96 mg/dL (83-110); Potassium 4.5 mmol/L (3.5-5.1); Sodium 139 mmol/L (136-145)
[2018-12-11 05:10] LABS: Band 4 % (5-11); Hemoglobin 14.1 g/dL (14.0-18.0); Lymphocytes 3 % (21-51); MDiff Complete? YES; Mean Corpuscular HGB CONC 32.5 g/dL (32.0-36.0); Mean Corpuscular Hemoglobin 32.9 pg (27.0-31.0); Mean Platelet Volume 6.9 fL (7.4-10.4); Monocytes 10 % (0-10); Neutrophil 83 % (42-75); Platelet Count 184 thou/uL (130-400); Platelet Morphology Comment Appears Adequate; RBC Distribution Width 12.1 % (11.5-14.5); White Blood Cell (WBC) Count 10.5 thou/uL (4.8-10.8)
--- NOTE | 2018-12-11 09:09 | PDOC.PN ---
- Subjective Encounter Start Date: 12/11/18 Encounter Start Time: 09:08 Subjective: Complains of difficulty breathing. -: still coughing and on oxygen -: No fever or chest pain. Conversation limited due to decreased hearing - Objective Resuscitation Status - Order Detail: 12/05/18 12:26 Resuscitation Status Routine Resuscitation Status: FULL: Full Resuscitation Vital Signs & Weight: Vital Signs (12 hours) Temp Pulse Resp BP Pulse Ox 12/11/18 07:32 97.3 F L 68 18 141/72 H 96 12/11/18 06:51 65 18 92 L 12/11/18 06:23 86 L 12/11/18 04:33 97.5 F L 65 16 118/67 93 L 12/11/18 02:23 69 18 12/10/18 21:46 62 20 92 L Weight Weight 171 lb 3.2 oz Most Recent Monitor Data Heart Rate from ECG 78 NIBP 121/102 NIBP BP-Mean 108 Respiration from ECG 24 SpO2 94 I&O: 12/10/18 12/11/18 12/12/18 06:59 06:59 06:59 Intake Total 720 1022 Output Total 1900 1545 Balance -1180 -523 Result Diagrams: 12/11/18 04:38 12/11/18 04:38 Phys Exam - Physical Examination afebrile, no obvious distress HEENT: moist MMs Neck: no JVD fair air entry bilateraaly with some transmitted sound and few rhonchi No respiratory distress. Cardiovascular: RRR Gastrointestinal: soft, no distention, positive bowel sounds Musculoskeletal: no edema, pulses present scoliosis noted Neurological: non-focal, moves all 4 limbs Psychiatric: A&O x 3 Deviation from normal: right upper back skin erosion with some erythema. Dx/Plan (1) Acute respiratory failure with hypoxia Code(s): J96.01 - ACUTE RESPIRATORY FAILURE WITH HYPOXIA Status: Acute Comment: Improving. (2) NSTEMI (non-ST elevated myocardial infarction) Code(s): I21.4 - NON-ST ELEVATION (NSTEMI) MYOCARDIAL INFARCTION Status: Acute (3) Sepsis Code(s): A41.9 - SEPSIS, UNSPECIFIED ORGANISM Status: Acute (4) HTN (hypertension) Code(s): I10 - ESSENTIAL (PRIMARY) HYPERTENSION Status: Acute (5) Paroxysmal atrial fibrillation with rapid ventricular response Code(s): I48.0 - PAROXYSMAL ATRIAL FIBRILLATION Status: Acute Comment: Currently in sinus. Not on anticoagulation. ? reason . ? Increased fall risk (6) BEAR (acute kidney injury) Code(s): N17.9 - ACUTE KIDNEY FAILURE, UNSPECIFIED Status: Acute Comment: Resolved with IVF (7) Physical deconditioning Code(s): R53.81 - OTHER MALAISE Status: Acute - Plan Continue current treatments (bronchodilators, steroid and antibiotics) -: Get repeat CXR. -: Will consider CTA to rule out PE if no significant improvement -: PT eval and treat. -: consult case mgt to help with SNF placement * .
[2018-12-11] MEDS: predniSONE 20 MG TAB PO SCH (09:58)
[2018-12-11] MEDS: Aspirin 81 mg Enteric Coated Tablet PO SCH (09:58)
[2018-12-11] MEDS: Benzonatate 100 MG CAP PO SCH ×3 (09:58→19:48)
[2018-12-11] MEDS: Amiodarone 200 MG TAB PO SCH (09:58)
[2018-12-11] MEDS: guaiFENesin ER 600 MG TAB PO SCH ×2 (09:58→19:48)
[2018-12-11] MEDS: Enoxaparin Sodium 60 MG/0.6 ML SYRINGE SC SCH (09:59)
[2018-12-11] MEDS: Ipratropium Bromide 0.06% Nasal Inhaler 15ml NASAL SCH ×2 (10:00→19:48)
--- NOTE | 2018-12-11 11:31 | RAD ---
2 views of the chest: 12/11/2018 COMPARISON: 12/05/2018. History: Shortness of breath FINDINGS: There is prominent elevation of the right hemidiaphragm. Midline sternotomy wires and media stinal clips are present. There is atherosclerotic calcification of the aortic arch. No pneumothorax is seen. Stable mild increased density seen in the medial left base with probable small bilateral pleural effu sions. No significant interval change since the 12/05/2018 exam. Prominent degenerative and/or post tra umatic changes at the thoracolumbar junction noted, poorly assessed on this exam. IMPRESSION: Stable appearance of the chest as detailed above.
--- NOTE | 2018-12-11 13:40 | PDOC.CTH ---
Cardiology Progress Note - Subjective The pt seen and examined. No overnight events. No cardiac complaints. - Objective Vital Signs Temp Pulse Pulse Pulse Resp BP BP 12/11/18 11:57 97.7 F 72 18 12/11/18 10:19 67 68 149/73 H 150/81 H 12/11/18 09:50 71 18 12/11/18 07:32 97.3 F L 68 18 12/11/18 06:51 65 18 12/11/18 06:23 12/11/18 04:33 97.5 F L 65 16 12/11/18 02:23 69 18 BP BP Pulse Ox Pulse Ox Pulse Ox 12/11/18 11:57 133/74 98 12/11/18 10:19 142/77 H 95 96 12/11/18 09:50 92 L 12/11/18 07:32 141/72 H 96 12/11/18 06:51 92 L 12/11/18 06:23 86 L 12/11/18 04:33 118/67 93 L 12/11/18 02:23 Weight 171 lb 3.2 oz 12/10/18 12/11/18 12/12/18 06:59 06:59 06:59 Intake Total 720 1022 Output Total 1900 1545 Balance -1180 -523 - Physical Examination General/Neuro: alert & oriented x3 Neck: no JVD present Lungs: CTA Heart: RRR Abdomen: soft Extremities: other: (No edema) - Telemetry Telemetry Rhythm: SR - Labs Result Diagrams: 12/11/18 04:38 12/11/18 04:38 Troponin/CKMB CK-MB (CK-2) 13.7 ng/mL (0-6.6) H* 12/05/18 11:12 Troponin I 1.287 ng/mL (< 0.028) H* 12/05/18 17:37 - Assessment/Plan 1. NSTEMI 2/2 possible demand ischemia - stable; No ECG changed; cont. to monitor on tele 2. PNA - on ABx; managed by PCP 3. CAD with s/p CABG x3 in 2012 - 4. Hx of Post-op Afib in 2013 - in SR; on ASA 81mg qd and Amiodarone 200mg qd 5. HTN - stable; Avoid BB till lung status improves 6. Hyperlipidemia - on Statin MAR reviewed * Echo on 12/06/2018 with EF 35-40% (20-25% in 2017), mild-mod MR and mod TR. * 4x5 cm lesion on the upper back that is suspicious for skin cancer. Prob. should need eval. by dermatology or general surgeon. pt. seen and eval. by me. I agree with the A/P by the CELLOPHANE WORKER. His cardiac status is stable. He could be transferred to medical. I will sign off.He can f/u in 2-4 weeks in the office. If any changes please inform me and I will be happy to see him again. Review of Systems - Review of Systems Constitutional: reports: no symptoms reported EENTM: reports: no symptoms reported Respiratory: reports: no symptoms reported Cardiac (ROS): reports: no symptoms reported ABD/GI: reports: no symptoms reported : reports: no symptoms reported Musculoskeletal: reports: no symptoms reported
--- NOTE | 2018-12-11 17:13 | PRG ---
DATE OF SERVICE: 12/11/2018 SUBJECTIVE: Mr. Johnson is now complaining that he is too weak to walk. He lives in [place] barn [place] [address] away from his son and [id number]. There is no way he can go home. His cough is in my opinion much much better than it was several days ago. He is still complaining that he does not feel good enough and wants to feel better now. OBJECTIVE: VITAL SIGNS: He is afebrile. Heart rate 69, respiratory rate 18, oximetry is 99% on 2 L, and blood pressure 142/74. LUNGS: Continues to improve. He has very faint wheezes. I do not hear any clear-cut crackles today. HEART: Regular rhythm. ABDOMEN: Soft and nontender. EXTREMITIES: Without edema. LABORATORY DATA: White count 10.5, hemoglobin 14.1, and platelets 184. Electrolytes are unremarkable. Potassium is 4.5. IMAGING STUDIES: Chest x-ray done today still shows colonic interposition at his right base. ASSESSMENT AND PLAN: I cannot say with certainty that he has a pneumonia. He at least at a minimum has a pretty severe case of asthmatic bronchitis, but he continues to improve. His weakness is the biggest factor he is facing and he cannot understand why he is so weak with this process. I have reminded him that he is 88 years of age and he has been laying in bed now since he was admitted on the . I have encouraged him to sit up in a chair, but he quickly told me he could not. He is extremely hard of hearing. I will continue with his cough suppression, his mucolytics, his nebulizer treatments, p.o. antibiotics, and p.o. steroids. He is stable in my opinion to go to a step-down unit. His steroids will be tapered over 2 weeks. He probably needs 10 days total of Levaquin. He will continue with his nebulizer treatments. We will sign off. Job ID: [id number]
[2018-12-12] MEDS: guaiFENesin/Codeine Phosphate 200 mg/20 mg 10 ml UD Cup PO SCH ×6 (04:10→22:30)
[2018-12-12] MEDS: Amiodarone 200 MG TAB PO SCH (08:44)
[2018-12-12] MEDS: predniSONE 20 MG TAB PO SCH (08:44)
[2018-12-12] MEDS: Aspirin 81 mg Enteric Coated Tablet PO SCH (08:44)
[2018-12-12] MEDS: Enoxaparin Sodium 60 MG/0.6 ML SYRINGE SC SCH (08:45)
[2018-12-12] MEDS: guaiFENesin ER 600 MG TAB PO SCH ×2 (08:46→22:30)
--- NOTE | 2018-12-12 09:10 | PDOC.PN ---
- Subjective Encounter Start Date: 12/12/18 Encounter Start Time: 09:08 Subjective: No new problem. Feeling better. Cough is subsiding. -: Still requiring oxygen - Objective Resuscitation Status - Order Detail: 12/05/18 12:26 Resuscitation Status Routine Resuscitation Status: FULL: Full Resuscitation Vital Signs & Weight: Vital Signs (12 hours) Temp Pulse Resp BP BP Pulse Ox 12/12/18 08:35 97.7 F 59 L 18 128/67 96 12/12/18 07:13 85 L 12/12/18 06:56 64 18 93 L 12/12/18 04:19 97.6 F 58 L 16 112/57 L 93 L 12/12/18 02:00 55 L 16 12/11/18 22:02 76 16 Weight Weight 171 lb 3.2 oz Most Recent Monitor Data Heart Rate from ECG 78 NIBP 121/102 NIBP BP-Mean 108 Respiration from ECG 24 SpO2 94 I&O: 12/11/18 12/12/18 12/13/18 06:59 06:59 06:59 Intake Total 1022 890 Output Total 1545 1100 Balance -523 -210 Result Diagrams: 12/11/18 04:38 12/11/18 04:38 Phys Exam - Physical Examination HEENT: moist MMs Neck: no JVD Respiratory: no wheezing, no rales, no rhonchi fair air entry with some transmitted sound. Decreased at the bases Cardiovascular: RRR Gastrointestinal: soft, non-tender, no distention, positive bowel sounds Musculoskeletal: no edema, pulses present Neurological: non-focal, moves all 4 limbs hard of hearing. Psychiatric: A&O x 3 Dx/Plan (1) Acute respiratory failure with hypoxia Code(s): J96.01 - ACUTE RESPIRATORY FAILURE WITH HYPOXIA Status: Acute Comment: Improving. (2) NSTEMI (non-ST elevated myocardial infarction) Code(s): I21.4 - NON-ST ELEVATION (NSTEMI) MYOCARDIAL INFARCTION Status: Acute Comment: Type 2. (3) Sepsis Code(s): A41.9 - SEPSIS, UNSPECIFIED ORGANISM Status: Acute (4) HTN (hypertension) Code(s): I10 - ESSENTIAL (PRIMARY) HYPERTENSION Status: Acute (5) Paroxysmal atrial fibrillation with rapid ventricular response Code(s): I48.0 - PAROXYSMAL ATRIAL FIBRILLATION Status: Acute Comment: Currently in sinus. Not on anticoagulation. ? reason . ? Increased fall risk (6) BEAR (acute kidney injury) Code(s): N17.9 - ACUTE KIDNEY FAILURE, UNSPECIFIED Status: Acute Comment: Resolved with IVF (7) Physical deconditioning Code(s): R53.81 - OTHER MALAISE Status: Acute - Plan Incentive spirometry encouraged. -: Wean oxygen as tolerated. -: Continue steroid, mucolytic, antibiotic and bronchodilators -: Needs physical rehabilitation. Cant be discharged home due to weakness * .
[2018-12-12] MEDS: Ipratropium Bromide 0.06% Nasal Inhaler 15ml NASAL SCH ×2 (09:28→22:31)
[2018-12-12] MEDS: Benzonatate 100 MG CAP PO SCH ×3 (09:30→22:29)
[2018-12-12 12:39] LABS: Anion Gap 8 mmol/L (10-20); BUN (Urea Nitrogen) 25 mg/dL (8.4-25.7); Calc. Creatinine Clearance 62 mL/min (70-130); Calcium 8.8 mg/dL (7.8-10.44); Carbon Dioxide 37 mmol/L (23-31); Chloride 98 mmol/L (98-107); Estimated GFR-MDRD 78; Glucose 114 mg/dL (83-110); Potassium 4.8 mmol/L (3.5-5.1); Sodium 138 mmol/L (136-145)
[2018-12-13] MEDS: guaiFENesin/Codeine Phosphate 200 mg/20 mg 10 ml UD Cup PO SCH ×6 (01:00→22:45)
[2018-12-13] MEDS: Milk Of Magnesia 30 ML UDCUP PO PRN ×2 (05:37→08:40)
[2018-12-13] MEDS: Aspirin 81 mg Enteric Coated Tablet PO SCH (08:39)
[2018-12-13] MEDS: Amiodarone 200 MG TAB PO SCH (08:39)
[2018-12-13] MEDS: Benzonatate 100 MG CAP PO SCH ×3 (08:39→22:49)
[2018-12-13] MEDS: predniSONE 20 MG TAB PO SCH (08:39)
[2018-12-13] MEDS: guaiFENesin ER 600 MG TAB PO SCH ×2 (08:39→22:45)
[2018-12-13] MEDS: Enoxaparin Sodium 60 MG/0.6 ML SYRINGE SC SCH (08:40)
[2018-12-13] MEDS: Ipratropium Bromide 0.06% Nasal Inhaler 15ml NASAL SCH (08:46)
--- NOTE | 2018-12-13 09:15 | PDOC.PN ---
- Subjective Encounter Start Date: 12/13/18 Encounter Start Time: 09:12 Subjective: No new problem -: Still on oxygen -: Cough is persists - Objective Resuscitation Status - Order Detail: 12/05/18 12:26 Resuscitation Status Routine Resuscitation Status: FULL: Full Resuscitation Vital Signs & Weight: Vital Signs (12 hours) Temp Pulse Resp BP BP Pulse Ox 12/13/18 08:52 94 L 12/13/18 08:50 97.1 F L 60 18 150/74 H 88 L 12/13/18 03:48 98.1 F 54 L 17 122/63 95 12/13/18 02:40 50 L 14 95 12/12/18 23:11 66 16 92 L Weight Weight 171 lb 3.2 oz Most Recent Monitor Data Heart Rate from ECG 78 NIBP 121/102 NIBP BP-Mean 108 Respiration from ECG 24 SpO2 94 I&O: 12/12/18 12/13/18 12/14/18 06:59 06:59 06:59 Intake Total 890 1440 Output Total 1100 1650 Balance -210 -210 Result Diagrams: 12/11/18 04:38 12/12/18 11:52 Phys Exam - Physical Examination Constitutional: NAD HEENT: moist MMs Neck: no JVD, supple fair air entry bilaterally with some transmitted sound Cardiovascular: RRR Gastrointestinal: soft, non-tender, no distention, positive bowel sounds Musculoskeletal: no edema, pulses present Neurological: non-focal, moves all 4 limbs Hard of hearing Psychiatric: A&O x 3 Dx/Plan (1) Acute respiratory failure with hypoxia Code(s): J96.01 - ACUTE RESPIRATORY FAILURE WITH HYPOXIA Status: Acute Comment: Improving. (2) NSTEMI (non-ST elevated myocardial infarction) Code(s): I21.4 - NON-ST ELEVATION (NSTEMI) MYOCARDIAL INFARCTION Status: Acute Comment: Type 2. (3) Sepsis Code(s): A41.9 - SEPSIS, UNSPECIFIED ORGANISM Status: Acute (4) HTN (hypertension) Code(s): I10 - ESSENTIAL (PRIMARY) HYPERTENSION Status: Acute (5) Paroxysmal atrial fibrillation with rapid ventricular response Code(s): I48.0 - PAROXYSMAL ATRIAL FIBRILLATION Status: Acute Comment: Currently in sinus. Not on anticoagulation. ? reason . ? Increased fall risk (6) BEAR (acute kidney injury) Code(s): N17.9 - ACUTE KIDNEY FAILURE, UNSPECIFIED Status: Acute Comment: Resolved with IVF (7) Physical deconditioning Code(s): R53.81 - OTHER MALAISE Status: Acute - Plan Continue treatment -: get CT chest with contrast -: Wean oxygen as tolerated. * .
--- NOTE | 2018-12-13 09:43 | EKG ---
Test Reason : Blood Pressure : / mmHG Vent. Rate : 067 BPM Atrial Rate : 067 BPM P-R Int : 212 ms QRS Dur : 142 ms QT Int : 444 ms P-R-T Axes : 056 -69 140 degrees QTc Int : 469 ms Sinus rhythm with 1st degree A-V block Right bundle branch block Left anterior fascicular block Bifascicular block Lateral infarct , age undetermined Inferior infarct , age undetermined Abnormal ECG Confirmed by ALEX BUNCH, SERVANDO Ramos ([id number]), staff editor ZANA ESPITIA ([id number]) on 12/13/2018 9:43:05 AM Referred By: Confirmed By:SERVANDO JOHNSON MD
--- NOTE | 2018-12-13 11:39 | CT ---
EXAM: CT pulmonary angiogram with IV contrast and 3-D MIP reconstructions PROVIDED CLINICAL HISTORY: None COMPARISON: None FINDINGS: Evaluation is limited by patient respiratory motion at the lung bases. There is no evidence for centr al or segmental pulmonary embolus. Cardiomegaly. Vascular calcification including coronary calcium. Median sternotomy and CABG changes. Consolidation and/or atelectasis medial right lung base. No pleur al fluid or pneumothorax apparent. No evidence for thoracic lymph node enlargement. The airway appears patent and of normal caliber. The visualized portions of the upper abdomen demonstrate no acu te findings. The osseous structures demonstrate no concerning lytic or blastic lesions. Elevation of the right hemidiaphragm and thoracolumbar scoliosis noted. IMPRESSION: 1. No evidence for central or segmental pulmonary embolus. 2. Consolidation and/or atelectasis medial right lung base.
[2018-12-13] MEDS: Scopolamine 1.5 mg/72 hour Patch TD SCH (12:35)
--- NOTE | 2018-12-13 14:17 | EKG ---
Test Reason : REPEAT Blood Pressure : / mmHG Vent. Rate : 066 BPM Atrial Rate : 066 BPM P-R Int : 152 ms QRS Dur : 142 ms QT Int : 460 ms P-R-T Axes : 000 -78 178 degrees QTc Int : 482 ms Normal sinus rhythm Left axis deviation Right bundle branch block Possible Lateral infarct , age undetermined Inferior infarct , age undetermined Abnormal ECG Confirmed by ALEJANDRA BRADY DO ([id number]), slot editor ZANA ESPITIA ([id number]) on 12/13/2018 2:17:06 PM Referred By: Confirmed By:ALEJANDRA BRADY DO
[2018-12-13 14:20] LABS: CO2 Tension 51.5 mmHg (35.0-45.0); O2 Tension (PaO2) 45.6 mmHg (> 60.0); pH, Arterial 7.38 (7.35-7.45)
[2018-12-13 14:21] LABS: Actual Bicarbonate (HCO3a) 29.9 mEq/L (22-28); Base Excess (BEa) 3.5 mEq/L (-2.0 to +3.0); Hemoglobin (Hb) 15.8 g/dL (14.0-18.0)
[2018-12-13 14:27] LABS: Carboxyhemoglobin (COHb) 0.8 gm% (0.0-3.0)
[2018-12-13 14:28] LABS: ALV-art Gradient 146.705 (0-20); Analyzer IN Cardio OR; Calcium, Ionized 1.17 mmol/L (1.12-1.30); Potassium - ABG Lab 4.88 mmol/L (3.70-5.30); Puncture Site LRA
[2018-12-13] MEDS ORDERED: ISOVUE-370 76%-LOCM 1 ML ONE (15:17)
[2018-12-13] MEDS: Acetylcysteine 10% 100 MG/ML 30 ml Vial INH SCH (19:18)
[2018-12-14] MEDS: Ipratropium Bromide 0.06% Nasal Inhaler 15ml NASAL SCH ×3 (00:33→20:39)
[2018-12-14] MEDS: guaiFENesin/Codeine Phosphate 200 mg/20 mg 10 ml UD Cup PO SCH ×6 (01:00→20:39)
[2018-12-14] MEDS: Acetylcysteine 10% 100 MG/ML 30 ml Vial INH SCH ×4 (02:05→18:34)
[2018-12-14 09:18] LABS: #Eosinphils 0.1 thou/uL (0.0-0.7); #Lymphocytes 0.4 thou/uL (1.20-3.40); #Monocytes 1.3 thou/uL (0.11-0.59); #Neutrophils 10.7 thou/uL (1.40-6.50); %Basophils 0.3 % (0.0-1.0); %Eosinophils 0.7 % (0.0-10.0); %Lymphocytes 3.3 % (21.0-51.0); %Neutrophils 85.7 % (42.0-75.0); Hemoglobin 15.4 g/dL (14.0-18.0); Mean Corpuscular HGB CONC 31.8 g/dL (32.0-36.0); Mean Corpuscular Hemoglobin 32.3 pg (27.0-31.0); Mean Platelet Volume 7.2 fL (7.4-10.4); Platelet Count 216 thou/uL (130-400); RBC Distribution Width 12.3 % (11.5-14.5); Red Blood Cell (RBC) Count 4.75 mill/uL (4.70-6.10); White Blood Cell (WBC) Count 12.5 thou/uL (4.8-10.8)
[2018-12-14 09:38] LABS: Anion Gap 11 mmol/L (10-20); BUN (Urea Nitrogen) 21 mg/dL (8.4-25.7); Calc. Creatinine Clearance 63 mL/min (70-130); Carbon Dioxide 34 mmol/L (23-31); Chloride 97 mmol/L (98-107); Estimated GFR-MDRD 79; Glucose 83 mg/dL (83-110); Potassium 4.5 mmol/L (3.5-5.1); Sodium 137 mmol/L (136-145)
[2018-12-14] MEDS: predniSONE 20 MG TAB PO SCH (09:56)
[2018-12-14] MEDS: guaiFENesin ER 600 MG TAB PO SCH ×2 (09:56→20:39)
[2018-12-14] MEDS: Aspirin 81 mg Enteric Coated Tablet PO SCH (09:56)
[2018-12-14] MEDS: Amiodarone 200 MG TAB PO SCH (09:56)
[2018-12-14] MEDS: Benzonatate 100 MG CAP PO SCH ×3 (09:57→20:41)
[2018-12-14] MEDS: Enoxaparin Sodium 40 MG/0.4 ML SYRINGE SC SCH (09:57)
--- NOTE | 2018-12-14 12:50 | PDOC.PN ---
- Subjective Encounter Start Date: 12/14/18 Encounter Start Time: 12:48 Subjective: More comfortable. Still coughing with minimal sputum. -: No fever or chest pain. Still on oxygen - Objective Resuscitation Status - Order Detail: 12/05/18 12:26 Resuscitation Status Routine Resuscitation Status: FULL: Full Resuscitation Vital Signs & Weight: Vital Signs (12 hours) Temp Pulse Resp BP BP Pulse Ox 12/14/18 08:30 97 12/14/18 08:26 69 20 12/14/18 08:15 97.8 F 68 16 136/69 98 12/14/18 04:00 98.5 F 65 22 H 138/70 92 L 12/14/18 02:05 87 24 H 92 L Weight Weight 171 lb 3.2 oz Most Recent Monitor Data Heart Rate from ECG 78 NIBP 121/102 NIBP BP-Mean 108 Respiration from ECG 24 SpO2 94 I&O: 12/13/18 12/14/18 12/15/18 06:59 06:59 06:59 Intake Total 1440 873 Output Total 1650 1730 Balance -210 -857 Result Diagrams: 12/14/18 08:55 12/14/18 08:55 Phys Exam - Physical Examination Constitutional: NAD HEENT: PERRLA, moist MMs Neck: no JVD, supple Respiratory: no wheezing, no rhonchi fair air entry wityh some transmitted sound. Cardiovascular: RRR Gastrointestinal: soft, non-tender, no distention, positive bowel sounds Musculoskeletal: no edema, pulses present Neurological: non-focal, moves all 4 limbs Psychiatric: A&O x 3 Dx/Plan (1) Acute respiratory failure with hypoxia Code(s): J96.01 - ACUTE RESPIRATORY FAILURE WITH HYPOXIA Status: Acute Comment: Improving. Still on oxygen. Due to right middle lobe pneumonia (2) NSTEMI (non-ST elevated myocardial infarction) Code(s): I21.4 - NON-ST ELEVATION (NSTEMI) MYOCARDIAL INFARCTION Status: Acute Comment: Type 2. (3) Sepsis Code(s): A41.9 - SEPSIS, UNSPECIFIED ORGANISM Status: Acute (4) HTN (hypertension) Code(s): I10 - ESSENTIAL (PRIMARY) HYPERTENSION Status: Acute (5) Paroxysmal atrial fibrillation with rapid ventricular response Code(s): I48.0 - PAROXYSMAL ATRIAL FIBRILLATION Status: Acute Comment: Currently in sinus. Not on anticoagulation. ? reason . ? Increased fall risk (6) BEAR (acute kidney injury) Code(s): N17.9 - ACUTE KIDNEY FAILURE, UNSPECIFIED Status: Acute Comment: Resolved with IVF (7) Physical deconditioning Code(s): R53.81 - OTHER MALAISE Status: Acute (8) Pneumonia Code(s): J18.9 - PNEUMONIA, UNSPECIFIED ORGANISM Status: Acute - Plan Continue antibiotic, bronchodilators, mucolytics and IPPV -: Oxygen as tolerated. wean as tolerated. -: PT to continue. * .
[2018-12-15] MEDS: guaiFENesin/Codeine Phosphate 200 mg/20 mg 10 ml UD Cup PO SCH ×3 (01:00→08:34)
[2018-12-15] MEDS: Acetylcysteine 10% 100 MG/ML 30 ml Vial INH SCH ×2 (02:09→06:33)
[2018-12-15 08:30] VITALS: TEMP 97.8
[2018-12-15] MEDS: Amiodarone 200 MG TAB PO SCH (08:35)
[2018-12-15] MEDS: guaiFENesin ER 600 MG TAB PO SCH (08:35)
[2018-12-15] MEDS: predniSONE 20 MG TAB PO SCH (08:35)
[2018-12-15] MEDS: Enoxaparin Sodium 40 MG/0.4 ML SYRINGE SC SCH (08:36)
[2018-12-15] MEDS: Aspirin 81 mg Enteric Coated Tablet PO SCH (08:36)
[2018-12-15] MEDS: Benzonatate 100 MG CAP PO SCH (08:41)
--- NOTE | 2018-12-15 10:56 | DIS ---
DATE OF ADMISSION: 12/05/2018 DATE OF DISCHARGE: 12/15/2018 DISCHARGE DIAGNOSES: 1. Acute respiratory failure with hypoxia. 2. Type 2 non-ST elevation myocardial infarction. 3. Sepsis. 4. Hypertension. 5. Acute kidney injury. 6. Paroxysmal atrial fibrillation with rapid ventricular response. 7. Physical deconditioning. 8. History of peptic ulcer disease. 9. History of coronary artery disease. 10. Right middle lobe pneumonia. 11. Chronic obstructive pulmonary exacerbation. CONSULTS: Cardiology, Pulmonary and Critical Care. HOSPITAL COURSE: An 88-year-old male with known history of coronary artery disease, admitted with worsening shortness of breath and cough, which has continued despite treatment at home with antibiotics and steroids. The patient was found to be hypoxic. Further evaluation revealed elevated troponin consistent with type 2 NSTEMI. The patient was started on broad-spectrum antibiotics, oxygen supplementation, bronchodilators, mucolytics, antithrombotic therapy with improvement. The patient initially was in the intermediate unit and was subsequently transferred to telemetry with improvement. While in the telemetry, the patient had an episode of acute worsening of respiratory distress and hypoxia. Further evaluation with CT angio showed right middle lobe atelectasis and consolidation. The patient also was treated with acetylcysteine and intermittent positive pressure ventilation with improvement. Oxygen was later weaned off. The patient, however, was felt to be physically deconditioned and arrangement was made to have the patient get further restorative therapy in a senior living facility. The patient also had acute kidney injury on presentation, which resolved with IV fluid therapy. The patient also had atrial fibrillation with rapid ventricular response, which were treated appropriately with rate control medications with improvement in rate. PHYSICAL EXAMINATION: VITAL SIGNS: Temperature 97.8, pulse 66, respiratory rate 18, SpO2 of 94 on room air, blood pressure 122/64. GENERAL: Elderly male, in no obvious distress. Afebrile. Anicteric. Acyanotic. HEENT: Normocephalic, atraumatic. Pupils are equal and reacting to light. RESPIRATORY: Fair air entry bilateral with few transmitted sounds. No obvious rhonchi are appreciated. CARDIOVASCULAR: Regular rhythm and rate with normal heart sounds 1 and 2. GASTROINTESTINAL: Soft, nontender, nondistended with normal bowel sound. EXTREMITIES: Grossly normal looking atraumatic with no edema or erythema. NEUROLOGIC: Conscious, alert and oriented x3. Moves all extremities. The patient, however, is hard of hearing. DISCHARGE CONDITION: Improved. DISCHARGE MEDICATIONS: 1. Amiodarone 200 mg p.o. daily. 2. Aspirin 81 mg p.o. daily. 3. Lisinopril 5 mg p.o. daily. 4. Protonix 40 mg p.o. daily. 5. Crestor 40 mg p.o. daily. 6. Mucinex 600 mg p.o. b.i.d. 7. Tessalon 200 mg p.o. t.i.d. 8. Ipratropium-albuterol sulfate 3 mL q.4 p.r.n. for shortness of breath and dyspnea. 9. Levofloxacin 500 mg p.o. daily for 5 days. 10. Prednisone tapering course over 14 days. TIME SPENT: This discharge took more than 38 minutes. Job ID: [id number]
[2018-12-15 13:18] VITALS: BP 113/85
[2018-12-15] MEDS: Ipratropium Bromide 0.06% Nasal Inhaler 15ml NASAL SCH (13:22)
== END 2018-12-15 12:50 | DRG 871 ==
LOC: ERS 10:45 → ERHOLD 12:10 → IMCU/EMU 17:12 → 2NO 12-10 14:20
PROVIDERS: ADMIT Internal Medicine; ATTEND Internal Medicine
DX: A41.9 Sepsis, unspecified organism (principal); J18.9 Pneumonia, unspecified organism; J96.01 Acute respiratory failure with hypoxia; I21.A1 Myocardial infarction type 2; N17.9 Acute kidney failure, unspecified; I42.9 Cardiomyopathy, unspecified; I25.10 Atherosclerotic heart disease of native coronary artery without angina pectoris; I48.91 Unspecified atrial fibrillation; I10 Essential (primary) hypertension; I48.0 Paroxysmal atrial fibrillation; Z95.1 Presence of aortocoronary bypass graft; J45.909 Unspecified asthma, uncomplicated
CPT/HCPCS: 36415; 71045; 71046; 71275; 80048; 80053; 82550; 82553; 82805; 83605; 83735; 83880; 84484; 85025; 87040; 93005; 93306; 93798; 94640; 94760; 96365; 96367; 96372; 96376; C9113; J0456; J0696; J1650; J1956; J2920; J2930; J3370; J3490; J7050; J7512; J7608; J7620; Q9966

== ENCOUNTER 2018-12-19 15:13 | Inpatient (IN) | payer MEDICARE ==
[~2018-12-19 15:13] MED LIST: ISOVUE-370 76%-LOCM 1 ML ONE
[2018-12-19 16:26] LABS: #Lymphocytes 0.9 thou/uL (1.20-3.40); #Monocytes 0.6 thou/uL (0.11-0.59); #Neutrophils 15.4 thou/uL (1.40-6.50); %Eosinophils 0.2 % (0.0-10.0); %Lymphocytes 5.3 % (21.0-51.0); %Monocytes 3.3 % (0.0-10.0); %Neutrophils 91.1 % (42.0-75.0); Hemoglobin 15.4 g/dL (14.0-18.0); Mean Corpuscular HGB CONC 32.3 g/dL (32.0-36.0); Mean Corpuscular Hemoglobin 31.9 pg (27.0-31.0); Mean Corpuscular Volume 98.6 fL (78.0-98.0); Mean Platelet Volume 7.2 fL (7.4-10.4); Platelet Count 153 thou/uL (130-400); RBC Distribution Width 12.3 % (11.5-14.5); Red Blood Cell (RBC) Count 4.85 mill/uL (4.70-6.10); White Blood Cell (WBC) Count 16.9 thou/uL (4.8-10.8)
[2018-12-19] MEDS ORDERED: Heparin 10,000 UNITS/ 10 ML VIAL SLOW IVP SCH (16:30)
[2018-12-19] MEDS ORDERED: Heparin 25,000 units/D5W 500 ML IV SCH (16:30)
[2018-12-19 16:33] LABS: INR-International Normal Ratio 1.1; PTT 27.8 SEC (22.9-36.1); Prothrombin Time 14.3 SEC (12.0-14.7)
[2018-12-19 16:49] LABS: ALT (SGPT) 179 U/L (8-55); AST (SGOT) 82 U/L (5-34); Albumin 3.5 g/dL (3.4-4.8); Alkaline Phosphatase 63 U/L (40-150); Anion Gap 11 mmol/L (10-20); BUN (Urea Nitrogen) 24 mg/dL (8.4-25.7); Bilirubin, Total 1.3 mg/dL (0.2-1.2); CK (CPK) 820 U/L (30-200); Calc. Creatinine Clearance 0 mL/min (70-130); Calcium 8.7 mg/dL (7.8-10.44); Carbon Dioxide 29 mmol/L (23-31); Chloride 99 mmol/L (98-107); Estimated GFR-MDRD 82; Globulin 2.5 g/dL (2.4-3.5); Glucose 115 mg/dL (83-110); Potassium 4.7 mmol/L (3.5-5.1); Sodium 134 mmol/L (136-145)
[2018-12-19] MEDS ORDERED: Morphine 4 MG/ML VIAL ONE (17:19)
[2018-12-19] MEDS ORDERED: Heparin 25,000 units/D5W 500 ML ONE (17:19)
--- NOTE | 2018-12-19 17:32 | CT ---
EXAM: CTA Angio Aort Bilat Rnoff W PROVIDED CLINICAL HISTORY: Cold right lower extremity which is pulseless. COMPARISON: None FINDINGS: There is bibasilar atelectasis and or scarring. There is elevation of the right hemidiaphragm. Tiny subcentimeter too small to characterize hypodense lesions are seen in the right hepatic lobe and at the dome of the liver too small to characterize. A 2.4 cm hypodense lesion seen in the midportion right kidney with an additional 1.8 cm lesion. These statistically likely represent small cysts. Subcentimeter too small to characterize hypodense lesion is also seen in the superior pole right kidney. Few very tiny subcentimeter too small to categ orize hypodense lesions are seen in the left kidney. The left kidney is displaced anteriorly. This is likely secondary to prominent scoliotic curvature. The spleen, pancreas, bilateral adrenal glands, and urinary bladder demonstrate a normal CT appearanc e. There is colonic diverticulosis. Loops of small bowel are normal in caliber. 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 Left hip prosthesis is noted, and there is right hip osteoarthritis. Osteopenia is present. There is tortuosity of the abdominal aorta. There is focal aneurysmal dilatation of the infrarenal ab dominal aorta measuring 3.2 cm with eccentric mural thrombus seen within the aneurysm with calcifications also present. Also mild focal aneurysmal dilatation of the infrarenal abdominal aorta just above the level of the aortic bifurcation which measures 3 cm with eccentric mural thrombus in this region. There is mild aneurysmal dilatation of the left common iliac artery measuring 2.2 cm in diameter. There is focal mild aneurysmal dilatation of the distal right common iliac artery measuring 2.1 cm with mural thrombus. Dense vascular calcifications are seen at the origins of the celiac and superior mesenteric arteries limiting evaluation of the lumen. There is also severe focal calcifications at the origin of the renal arteries bilaterally limiting evaluation of the origins of each renal artery greatest on the le ft. Origin of the GUY is obscured due to dense vascular calcific lesions in the thoracic aorta. There is severe focal stenosis involving the proximal left internal iliac artery with eccentric throm bus and calcification. 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 The external iliac arteries and common femoral arteries are patent bilaterally. There is severe tandem focal stenosis involving the right superficial femoral artery. Superficial fem oral artery occludes proximally. The right profunda femoral artery is patent; although, dense vascular calcifications are present. There is no opacification of the superficial femoral artery or p opliteal artery, and there is no contrast enhancement of the tibial peroneal vessels on the right. There is aneurysmal dilatation of the proximal right popliteal artery measuring 2.1 cm. The proximal left superficial femoral artery as well as profunda femoral artery are patent. There is faint contrast opacification of the left superficial femoral artery, but no contrast is seen distal to the level of the adductor canal. This is thought to more likely be related to suboptimal timing of the contrast bolus as opposed to occlusion although is difficult to definitely determine. There is mild aneurysmal dilatation of the left popliteal artery measuring 2 cm. There is no opacification the tibioperoneal vessels. Multiple vascular calcifications are seen within the tibial peroneal vessels. IMPRESSION: 1. 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 There is generalized prominence of the arterial vessels. 2. Severe focal tandem stenoses in the proximal left superficial femoral artery; the superficial femo ral artery does occlude in the proximal thigh without opacification of the popliteal or tibial peroneal vessels on the right. 3. There is absence of flow seen in the left superficial femoral artery at the level of the adductor canal. This may be attributable to timing of the contrast bolus as opposed to focal stenosis, but this is difficult to further determine. Tibioperoneal vessels and popliteal artery on the left are no t opacified. 4. 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 5. Additional findings are as described above.
--- NOTE | 2018-12-19 18:32 | RAD ---
AP VIEW CHEST: 12/19/18 COMPARISON: Comparison made to two view chest from 12/07/18. AP view chest demonstrates sternotomy wires seen. There is continued elevation of the right hemidiaph ragm. Large number of loops of bowel seen beneath the right hemidiaphragm. No evidence of acute int rathoracic abnormality seen. No evidence of abnormality seen in the left lung. IMPRESSION: Elevated right hemidiaphragm unchanged since the previous exam. POS: JAJA
[2018-12-19] MEDS ORDERED: Bisacodyl 5 MG TAB PO PRN (19:48)
[2018-12-19] MEDS ORDERED: Ondansetron PF 4 MG/2 ML Vial IVP PRN (19:54)
[2018-12-19] MEDS ORDERED: Acetaminophen 325 MG TAB PO PRN (19:54)
[2018-12-19] MEDS ORDERED: Ondansetron ODT 4 MG TAB SL PRN (19:54)
[2018-12-19] MEDS ORDERED: Sodium Chloride 0.9% 1,000 ML IV SCH (19:54)
[2018-12-19 20:48] LABS: Hemoglobin 14.7 g/dL (14.0-18.0)
--- NOTE | 2018-12-19 21:12 | HP ---
CHIEF COMPLAINT: Right lower extremity pain. HISTORY OF PRESENT ILLNESS: The patient is an 88-year-old male who is a custodial resident who stated that he woke up yesterday last night complaining of severe pain to his right bilateral lower extremity, right greater than left. The patient stated that the pain was so extensive that he almost was very tearful. The patient was brought in to the hospital for further evaluation today. The patient denies any trauma or injury or swelling to his right foot. The patient was recently discharged from the hospital after being treated for pneumonia. PAST MEDICAL HISTORY: As of the following; 1. CAD. 2. Hypertension. 3. Peptic ulcer disease. 4. Atrial fibrillation. 5. Hypertension. PAST SURGICAL HISTORY: He has had a CABG and hip surgery. ALLERGIES: HE HAS NO KNOWN DRUG ALLERGIES. MEDICATIONS: 1. He is on amiodarone 200 mg daily. 2. Protonix 40 mg daily. 3. Aspirin 81 mg daily. 4. Lisinopril 20 mg daily. FAMILY HISTORY: No significant history of heart disease or cancer. REVIEW OF SYSTEMS: All negative except for the ones mentioned above in HPI. PHYSICAL EXAMINATION: VITAL SIGNS: As of the following; his temperature is 98.9, , 94% on room air, blood pressure 112/58. GENERAL: He is awake, alert, and oriented x3. Does not appear in distress. HEENT: Normocephalic, atraumatic. No lymphadenopathy noted. Pupils are equal and reactive to light. CV: S1 and S2 present. No murmurs, rubs, or gallops. LUNGS: Clear to auscultation. No rhonchi or wheezes noted. ABDOMEN: Soft and nontender. Bowel sounds are present x2. EXTREMITIES: He does have his right extremities as cool to touch compared to the left. Unable to feel or palpate pedal pulses of his right foot. However, we are able to palpate the pedal pulses through Dopplers on the left. Left dorsalis pedis is present. NEUROVASCULAR: No focal deficits noted. The patient is able to move all 4 extremities. SKIN: He does have some chronic venous stasis noted to his bilateral lower extremities. LABORATORY RESULTS: As of the following; WBC of 16.9, hemoglobin of 15.4, hematocrit of 47.8, platelets of 153. Chemistry; sodium of 134, potassium of 4.7, BUN of 24, creatinine 0.88, glucose of 115. He did have a CT of the aorta with runoff, which indicated he has extensive several atherosclerotic vascular disease with aneurysm dilation in the inferior renal abdominal aorta as well as the common iliac arteries and bilateral popliteal arteries. There is a severe focal tandem stenosis in the proximal left superficial femoral artery. There is absence of flow seen in the left superficial artery. ASSESSMENT AND PLAN: The patient is a very pleasant 88-year-old male who presents to the hospital with pain to his right foot. 1. Right foot pain, most likely secondary to peripheral vascular disease, which appears to be severe. The patient has been started on heparin drip. I will also continue the Plavix and statin. CV Surgery has been consulted for this patient. However, I am not sure if he will be a surgical candidate. 2. History of hypertension. We will continue his home medications. 3. History of hypercholesterolemia. We will continue his rosuvastatin. 4. Recent history of pneumonia. He already finished his dose of antibiotics which was only for 5 days and today is the 5th day. He will continue the remaining of his home medications. 5. I will get Physical Therapy to evaluate this patient. I will keep him n.p.o. after midnight just in case if any surgical intervention is required. Job ID: [id number]
--- NOTE | 2018-12-20 01:27 | CON ---
DATE OF CONSULTATION: 12/19/2018 HISTORY OF PRESENT ILLNESS: Mr. Johnson is an 88-year-old resident of residential, who began to complain of increasing levels of right leg pain. He says that he has been hurting in his leg for months. He is an incredibly poor historian. He remembers small details about his medical history and there is no family present currently, so most of my past history is gleaned from the chart. His leg was painful on presentation, but now he says it feels fine. He says he has not been able to move his toes for a couple of weeks. He carries a diagnosis of chronic atrial fibrillation, although he is in normal sinus rhythm now. He does take amiodarone. He has had no ulcerations or skin breakdown on either leg. PAST MEDICAL HISTORY: 1. Coronary artery disease status post coronary artery bypass grafting [place] [address] Rivas. 2. Hypertension. 3. Peptic ulcer disease. 4. Prior history of atrial fibrillation, on chronic amiodarone therapy. 5. Probable dementia. 6. Severely hard of hearing. PAST SURGICAL HISTORY: 1. Coronary artery bypass grafting. 2. Hip surgery. ALLERGIES: NONE. MEDICATIONS: 1. Prednisone 10 mg daily. 2. Mucinex 600 mg b.i.d. 3. Crestor 40 mg daily. 4. Protonix 40 mg daily. 5. Zestril 5 mg daily. 6. Levaquin 500 mg q.a.m. 7. DuoNeb p.r.n. 8. Tessalon 200 mg p.r.n. 9. Aspirin 81 mg daily. 10. Amiodarone 200 mg daily. PHYSICAL EXAMINATION: GENERAL: This is an elderly gentleman, resting very comfortably in the emergency department. VITAL SIGNS: His heart rate is 80 and regular, blood pressure is 113/85. HEENT: Sclerae nonicteric. Pupils are equal and round bilaterally. NECK: Supple without bruit. CHEST: Has rough rhonchi bilaterally. HEART: Rhythm is regular without murmur. ABDOMEN: Soft and nontender. EXTREMITIES: Below the knee, his right lower extremity is cool to the touch. Below the knee in the left, the lower extremity is less cool to the touch. On the left, femoral and popliteal artery pulses are palpable. I can find the posterior tibial artery monophasic light Doppler signal. On the right, femoral and popliteal artery pulses are palpable. I cannot find a Doppler signal in his foot. The patient states that he is not an ambulator and does not really stand. He is for the most part bedridden. DIAGNOSTIC DATA: I reviewed his CT angiogram, which shows chronic peripheral vascular changes throughout his arterial tree. Both popliteal arteries were occluded below the knee with no good flow below the knee of contrast. Arteries are calcified below the knee throughout. ASSESSMENT AND PLAN: Chronic peripheral vascular disease with acute exacerbation on the right. It is unclear how long this has been going on, but the patient states it has been going on for quite some time, although he did have an acute exacerbation. He is a non-ambulator. I would not consider him for revascularization and therefore heparin therapy is probably not indicated. I have discussed his current situation with him that at some point he will likely come to amputation. He is not ready to discuss this now and he has no family available at this point to talk with. My understanding is the hospitalists are planning to admit him and I will be happy to discuss his situation with family when they are available. Job ID: [id number]
[2018-12-20] MEDS: Acetaminophen 325 MG TAB PO PRN ×2 (01:43→22:05)
[2018-12-20 04:50] LABS: Anion Gap 11 mmol/L (10-20); BUN (Urea Nitrogen) 24 mg/dL (8.4-25.7); Calc. Creatinine Clearance 69 mL/min (70-130); Carbon Dioxide 25 mmol/L (23-31); Chloride 103 mmol/L (98-107); Estimated GFR-MDRD Greater than 90; Glucose 99 mg/dL (83-110); Potassium 4.9 mmol/L (3.5-5.1); Sodium 134 mmol/L (136-145)
[2018-12-20] MEDS ORDERED: Heparin 10,000 UNITS/ 10 ML VIAL SLOW IVP SCH (08:45)
[2018-12-20] MEDS: Aspirin 81 mg Enteric Coated Tablet PO SCH (09:06)
[2018-12-20] MEDS: Rosuvastatin 20 MG TAB PO SCH (09:06)
[2018-12-20] MEDS: Amiodarone 200 MG TAB PO SCH (09:07)
[2018-12-20] MEDS ORDERED: Heparin 25,000 units/D5W 500 ML IV SCH (09:30)
[2018-12-20] MEDS ORDERED: Chloraseptic Spray 180 ml Bottle PO PRN (12:49)
--- NOTE | 2018-12-20 12:52 | PDOC.PN ---
- Subjective Encounter Start Date: 12/20/18 Encounter Start Time: 12:49 Mr. Johnson was seen today in follow-up of right leg pain. Right now he is not having any pain, he says it is numb, and he has difficulty bending his foot up. His main complaint is a mild sore throat. He denies any cough or congestion , he denies any nasal drainage. - Objective Resuscitation Status - Order Detail: 12/19/18 19:48 Resuscitation Status Routine Resuscitation Status: FULL: Full Resuscitation MAR Reviewed: Yes Vital Signs & Weight: Vital Signs (12 hours) Temp Pulse Resp BP Pulse Ox 12/20/18 03:35 97.4 F L 47 L 18 100/58 L 95 Weight Weight 161 lb 11.2 oz I&O: 12/19/18 12/20/18 12/21/18 06:59 06:59 06:59 Intake Total 190 Output Total 700 Balance -510 Result Diagrams: 12/19/18 20:35 12/20/18 04:32 Phys Exam - Physical Examination HEENT: PERRLA, moist MMs, oral pharynx no lesions Respiratory: no wheezing, no rales, no rhonchi, clear to auscultation bilateral Cardiovascular: RRR, no significant murmur, no rub Gastrointestinal: soft, non-tender, no distention, positive bowel sounds Musculoskeletal: no edema pulses absent, right foot is cooler than the left both feet are mottled in appeance Dx/Plan (1) Peripheral vascular disease of lower extremity Code(s): I73.9 - PERIPHERAL VASCULAR DISEASE, UNSPECIFIED Status: Chronic (2) Dyslipidemia Code(s): E78.5 - HYPERLIPIDEMIA, UNSPECIFIED Status: Chronic (3) HTN (hypertension) Code(s): I10 - ESSENTIAL (PRIMARY) HYPERTENSION Status: Chronic - Plan * Right Leg Ischemia from PVD- he has an acute on chronic presentation, now his pain is better. Vascular Surgeon recommendations noted. He is not felt to be a good surgical candidate * Symptom control * HTN- blood pressure is stable * Dyslipidemia- continue Crestor * Await further recommendations from Dr. Jama.
[2018-12-20 13:16] LABS: Hemoglobin 14.2 g/dL (14.0-18.0)
[2018-12-20 19:01] LABS: Hemoglobin 13.8 g/dL (14.0-18.0)
[2018-12-21 01:38] LABS: Hemoglobin 13.6 g/dL (14.0-18.0)
[2018-12-21] MEDS: Acetaminophen 325 MG TAB PO PRN (01:56)
[2018-12-21] MEDS ORDERED: traMADol HCl 50 MG TAB PO SCH (03:30)
[2018-12-21] MEDS ORDERED: Morphine 4 MG/ML VIAL SLOW IVP SCH ×2 (04:45→06:00)
[2018-12-21 07:35] LABS: Hemoglobin 13.7 g/dL (14.0-18.0)
[2018-12-21] MEDS: Aspirin 81 mg Enteric Coated Tablet PO SCH (09:23)
[2018-12-21] MEDS: Rosuvastatin 20 MG TAB PO SCH (09:23)
[2018-12-21] MEDS: Amiodarone 200 MG TAB PO SCH (09:23)
--- NOTE | 2018-12-21 15:27 | PDOC.PN ---
- Subjective Encounter Start Date: 12/21/18 Encounter Start Time: 15:25 Mr. Johnson was seen today in follow-up of Ischemic leg pain. He had fairly severe pain last night. He required IV Morphine for relief. His son is concerned about what to do regarding pain management when he leaves the hospital. - Objective Resuscitation Status - Order Detail: 12/19/18 19:48 Resuscitation Status Routine Resuscitation Status: FULL: Full Resuscitation MAR Reviewed: Yes Vital Signs & Weight: Vital Signs (12 hours) Temp Pulse Pulse Pulse Pulse Resp BP 12/21/18 13:13 97.7 F 60 18 12/21/18 10:39 55 L 59 L 62 121/59 L 12/21/18 07:43 98 F 51 L 18 12/21/18 04:25 98.3 F 50 L 18 BP BP BP Pulse Ox 12/21/18 13:13 135/72 96 12/21/18 10:39 130/61 159/69 H 12/21/18 07:43 122/63 92 L 12/21/18 04:25 132/63 93 L Weight Admit Weight 156 lb Weight 160 lb 12.8 oz I&O: 12/20/18 12/21/18 12/22/18 06:59 06:59 06:59 Intake Total 190 1060 480 Output Total 700 350 Balance -510 710 480 Result Diagrams: 12/21/18 07:00 12/20/18 04:32 Phys Exam - Physical Examination HEENT: PERRLA Respiratory: no wheezing, no rales, no rhonchi, clear to auscultation bilateral Cardiovascular: RRR, no significant murmur, no rub Gastrointestinal: soft, non-tender, no distention, positive bowel sounds Musculoskeletal: no edema pulses are absent, his foot is bluished discolored mottled and cool Dx/Plan (1) Peripheral vascular disease of lower extremity Code(s): I73.9 - PERIPHERAL VASCULAR DISEASE, UNSPECIFIED Status: Chronic (2) Dyslipidemia Code(s): E78.5 - HYPERLIPIDEMIA, UNSPECIFIED Status: Chronic (3) HTN (hypertension) Code(s): I10 - ESSENTIAL (PRIMARY) HYPERTENSION Status: Chronic - Plan * Severe PVD with Ischemic leg pain- This is intermittent it seems to be worse at night-will try [place] tonight, to see if we can find an oral medication to control his symptoms. Will also consult Palliative care. He may benefit from these services as an outpatient * HTN- blood pressure is controlled * Dyslipidemia- continue Statin
[2018-12-21] MEDS: HYDROcodone/Acetaminophen 10/325 mg Tablet PO PRN (16:17)
[2018-12-22] MEDS: HYDROcodone/Acetaminophen 5/325 mg Tablet PO PRN (00:53)
[2018-12-22] MEDS: Acetaminophen 325 MG TAB PO PRN (03:24)
[2018-12-22] MEDS: Rosuvastatin 20 MG TAB PO SCH (08:51)
[2018-12-22] MEDS: HYDROcodone/Acetaminophen 10/325 mg Tablet PO PRN ×2 (08:51→20:01)
[2018-12-22] MEDS: Aspirin 81 mg Enteric Coated Tablet PO SCH (08:53)
[2018-12-22] MEDS: Amiodarone 200 MG TAB PO SCH (08:53)
--- NOTE | 2018-12-22 11:12 | PDOC.PN ---
- Subjective Encounter Start Date: 12/22/18 Encounter Start Time: 11:10 Mr. Johnson was seen today in follow-up of Ischemic pain in the right foot. He tells me he had a better night, with regards to pain control. His son is at the bedside, and agrees. He was able to get up with physical therapy some. - Objective Resuscitation Status - Order Detail: 12/19/18 19:48 Resuscitation Status Routine Resuscitation Status: FULL: Full Resuscitation MAR Reviewed: Yes Vital Signs & Weight: Vital Signs (12 hours) Temp Pulse Pulse Pulse Resp BP BP 12/22/18 08:50 62 18 12/22/18 08:48 65 61 160/83 H 150/72 H 12/22/18 04:10 98 F 52 L 18 BP Pulse Ox 12/22/18 08:50 160/83 H 95 12/22/18 08:48 12/22/18 04:10 112/59 L 99 Weight Admit Weight 156 lb Weight 160 lb 8 oz I&O: 12/21/18 12/22/18 12/23/18 06:59 06:59 06:59 Intake Total 1060 1330 Output Total 350 550 Balance 710 780 Result Diagrams: 12/21/18 07:00 12/20/18 04:32 Phys Exam - Physical Examination HEENT: PERRLA Respiratory: no wheezing, no rales, no rhonchi, clear to auscultation bilateral Cardiovascular: RRR, no significant murmur, no rub Gastrointestinal: soft, non-tender, no distention, positive bowel sounds Musculoskeletal: no edema absent pulses, right foot is cold and mottled Dx/Plan (1) Peripheral vascular disease of lower extremity Code(s): I73.9 - PERIPHERAL VASCULAR DISEASE, UNSPECIFIED Status: Chronic (2) Dyslipidemia Code(s): E78.5 - HYPERLIPIDEMIA, UNSPECIFIED Status: Chronic (3) HTN (hypertension) Code(s): I10 - ESSENTIAL (PRIMARY) HYPERTENSION Status: Chronic - Plan * Severe PVD and Ischemic foot pain- he is not a surgical candidate, symptom control is the plan. He seems to have responded to [place] * HTN - Blood pressure is stable * Dyslipidemia- continue Statin * Continue PT/OT for reconditioning ( he was recently hospitalized for Pneumonia ) and family would like Rehab or [facility].
[2018-12-23] MEDS: HYDROcodone/Acetaminophen 10/325 mg Tablet PO PRN ×3 (00:09→18:47)
[2018-12-23] MEDS: Aspirin 81 mg Enteric Coated Tablet PO SCH (09:20)
[2018-12-23] MEDS: Rosuvastatin 20 MG TAB PO SCH (09:20)
[2018-12-23] MEDS: Amiodarone 200 MG TAB PO SCH (09:20)
[2018-12-23] MEDS: HYDROcodone/Acetaminophen 5/325 mg Tablet PO PRN ×2 (09:25→22:58)
--- NOTE | 2018-12-23 17:00 | PDOC.PN ---
- Subjective Encounter Start Date: 12/23/18 Encounter Start Time: 17:00 follow up PVD. Son present at bedside ([facility]). Slow improvement present. Pain control right foot "fair". No new events. - Objective Resuscitation Status - Order Detail: 12/19/18 19:48 Resuscitation Status Routine Resuscitation Status: FULL: Full Resuscitation Vital Signs & Weight: Vital Signs (12 hours) Temp Pulse Pulse Pulse Resp BP BP 12/23/18 16:00 98.1 F 57 L 16 12/23/18 11:52 98.1 F 58 L 16 12/23/18 09:34 58 L 66 104/66 152/72 H 12/23/18 08:26 12/23/18 08:04 98.4 F 60 15 BP BP Pulse Ox 12/23/18 16:00 126/61 95 12/23/18 11:52 112/56 L 96 12/23/18 09:34 12/23/18 08:26 96 12/23/18 08:04 136/64 96 Weight Admit Weight 156 lb Weight 160 lb 8 oz I&O: 12/22/18 12/23/18 12/24/18 06:59 06:59 06:59 Intake Total 1330 650 Output Total 550 200 Balance 780 450 Result Diagrams: 12/21/18 07:00 12/20/18 04:32 Phys Exam - Physical Examination Constitutional: NAD HEENT: PERRLA, moist MMs Neck: supple, full ROM Respiratory: clear to auscultation bilateral Cardiovascular: RRR Gastrointestinal: soft, non-tender Musculoskeletal: no edema Poor pulses lower extremities Neurological: moves all 4 limbs extremely hard of hearing Psychiatric: normal affect, A&O x 3 Skin: no rash Dx/Plan (1) Dyslipidemia Code(s): E78.5 - HYPERLIPIDEMIA, UNSPECIFIED Status: Chronic (2) Peripheral vascular disease of lower extremity Code(s): I73.9 - PERIPHERAL VASCULAR DISEASE, UNSPECIFIED Status: Chronic (3) Physical deconditioning Code(s): R53.81 - OTHER MALAISE Status: Acute - Plan * PVD - no surgical intervention planned at this time. Seems to be tolerating oral medications for pain * HTN - BP acceptable * Dyslipidemia - statin * Discussed with son at bedside (other son is POA) and then Christi NIELSON, reviewed CM notes. Home with HH being entertained. Disagreement regarding discharge plan present in family. Need to clarify with family, hope to transition home or SNF 12/24 if continues to stabilize
[2018-12-24] MEDS: HYDROcodone/Acetaminophen 10/325 mg Tablet PO PRN ×2 (08:48→20:35)
[2018-12-24] MEDS: Rosuvastatin 20 MG TAB PO SCH (08:49)
[2018-12-24] MEDS: Amiodarone 200 MG TAB PO SCH (08:49)
[2018-12-24] MEDS: Senokot S 8.6-50 MG TAB PO PRN ×2 (08:49→21:29)
[2018-12-24] MEDS: Aspirin 81 mg Enteric Coated Tablet PO SCH (08:50)
[2018-12-24] MEDS: HYDROcodone/Acetaminophen 5/325 mg Tablet PO PRN (16:11)
--- NOTE | 2018-12-24 18:15 | PDOC.PN ---
- Subjective Encounter Start Date: 12/24/18 Encounter Start Time: 13:40 f/u PVD, deconditioning. Family meeting --> brothers in agreement that patient should go to SNF instead of son's home with home health. In the future, they would like to bring him home. Case management working in insurance referral for SNF. Patient reports pain medication has helped his ischemic right foot. He "still feels weak" but does state he's a little stronger each day. - Objective Resuscitation Status - Order Detail: 12/19/18 19:48 Resuscitation Status Routine Resuscitation Status: FULL: Full Resuscitation Vital Signs & Weight: Vital Signs (12 hours) Temp Pulse Pulse Pulse Resp BP BP 12/24/18 08:35 70 68 120/61 124/60 12/24/18 08:00 98.7 F 62 16 BP Pulse Ox Pulse Ox Pulse Ox 12/24/18 08:35 99 100 12/24/18 08:00 119/74 93 L Weight Admit Weight 156 lb Weight 160 lb 8 oz I&O: 12/23/18 12/24/18 12/25/18 06:59 06:59 06:59 Intake Total 650 300 Output Total 200 490 Balance 450 -190 Result Diagrams: 12/21/18 07:00 12/20/18 04:32 Phys Exam - Physical Examination Constitutional: NAD HEENT: PERRLA Hard of hearing Neck: supple, full ROM Respiratory: clear to auscultation bilateral Cardiovascular: RRR Gastrointestinal: soft, non-tender Musculoskeletal: no edema Neurological: moves all 4 limbs Psychiatric: normal affect, A&O x 3 Skin: no rash Deviation from normal: Dusky changes c/w ischemia right great toe/fourth toe Dx/Plan (1) Dyslipidemia Code(s): E78.5 - HYPERLIPIDEMIA, UNSPECIFIED Status: Chronic (2) Peripheral vascular disease of lower extremity Code(s): I73.9 - PERIPHERAL VASCULAR DISEASE, UNSPECIFIED Status: Chronic (3) Physical deconditioning Code(s): R53.81 - OTHER MALAISE Status: Acute - Plan * PVD - Vascular surgery plans no intervention at this time. In the future, amputation may require consideration. * Pain control tolerable on oral agents * HTN - Continue BP mds * Dyslipidemia - statin * Following family meeting, insurance referral requested by CM for SNF. At current time (6:20pm) has not been accepted/approved. Anticipate transfer to SNF once accepted. Spoke with abel Kaiser at bedside.
[2018-12-25] MEDS: HYDROcodone/Acetaminophen 10/325 mg Tablet PO PRN ×2 (06:17→16:10)
--- NOTE | 2018-12-25 08:32 | PDOC.PN ---
- Subjective Encounter Start Date: 12/25/18 Encounter Start Time: 08:30 Subjective: Right leg pain is better with analgesic. -: No fever/ Oral intake is improving. -: Denied chest pain or SOB. - Objective Resuscitation Status - Order Detail: 12/19/18 19:48 Resuscitation Status Routine Resuscitation Status: FULL: Full Resuscitation Vital Signs & Weight: Vital Signs (12 hours) Temp Pulse Resp BP Pulse Ox 12/25/18 07:33 99.2 F 57 L 16 106/57 L 93 L 12/25/18 04:14 99.7 F H 55 L 19 101/55 L 92 L Weight Admit Weight 156 lb Weight 160 lb 8 oz I&O: 12/24/18 12/25/18 12/26/18 06:59 06:59 06:59 Intake Total 300 1240 Output Total 490 870 Balance -190 370 Result Diagrams: 12/21/18 07:00 12/20/18 04:32 Phys Exam - Physical Examination Constitutional: NAD afebrile HEENT: moist MMs Neck: supple Respiratory: no wheezing, no rhonchi fair air entry bilaterally with some transmitted sound especially right bas Cardiovascular: RRR Gastrointestinal: soft, non-tender, no distention, positive bowel sounds mild to moderate right leg edema with tenderness of the calf. right foot is cold relative to left Neurological: non-focal, moves all 4 limbs Awake and conversational. Dx/Plan (1) Ischemia of right lower extremity Code(s): I99.8 - OTHER DISORDER OF CIRCULATORY SYSTEM Status: Acute (2) Pain of right leg Code(s): M79.604 - PAIN IN RIGHT LEG Status: Acute (3) Peripheral vascular disease of lower extremity Code(s): I73.9 - PERIPHERAL VASCULAR DISEASE, UNSPECIFIED Status: Chronic (4) Paroxysmal atrial fibrillation Code(s): I48.0 - PAROXYSMAL ATRIAL FIBRILLATION Status: Acute (5) Dyslipidemia Code(s): E78.5 - HYPERLIPIDEMIA, UNSPECIFIED Status: Chronic (6) Physical deconditioning Code(s): R53.81 - OTHER MALAISE Status: Acute (7) HTN (hypertension) Code(s): I10 - ESSENTIAL (PRIMARY) HYPERTENSION Status: Chronic - Plan Continue suportive care. No surgical intervention recommended by Vascular -: Continue analgesic as needed -: Get Repeat CBC, BMP as well as CK and lactic acid. -: SNF placement arrangements in progress. * .
[2018-12-25 08:42] LABS: Anion Gap 11 mmol/L (10-20); BUN (Urea Nitrogen) 14 mg/dL (8.4-25.7); Calc. Creatinine Clearance 73 mL/min (70-130); Calcium 8.4 mg/dL (7.8-10.44); Carbon Dioxide 25 mmol/L (23-31); Chloride 99 mmol/L (98-107); Estimated GFR-MDRD Greater than 90; Glucose 100 mg/dL (83-110); Potassium 4.1 mmol/L (3.5-5.1); Sodium 131 mmol/L (136-145)
[2018-12-25 08:54] LABS: CK (CPK) 5048 U/L (30-200)
[2018-12-25 09:29] LABS: #Lymphocytes 0.4 thou/uL (1.20-3.40); #Monocytes 0.8 thou/uL (0.11-0.59); #Neutrophils 15.2 thou/uL (1.40-6.50); %Eosinophils 0.3 % (0.0-10.0); %Lymphocytes 2.5 % (21.0-51.0); %Monocytes 4.7 % (0.0-10.0); %Neutrophils 92.5 % (42.0-75.0); Hemoglobin 12.9 g/dL (14.0-18.0); Mean Corpuscular HGB CONC 32.6 g/dL (32.0-36.0); Mean Corpuscular Hemoglobin 32.2 pg (27.0-31.0); Mean Corpuscular Volume 98.7 fL (78.0-98.0); Mean Platelet Volume 7.8 fL (7.4-10.4); Platelet Count 104 thou/uL (130-400); Platelet Morphology Comment Appears Decreased; RBC Distribution Width 12.6 % (11.5-14.5); White Blood Cell (WBC) Count 16.4 thou/uL (4.8-10.8)
[2018-12-25] MEDS: Rosuvastatin 20 MG TAB PO SCH (09:40)
[2018-12-25] MEDS: Amiodarone 200 MG TAB PO SCH (09:40)
[2018-12-25] MEDS: Aspirin 81 mg Enteric Coated Tablet PO SCH (09:40)
[2018-12-25 09:49] LABS: Lactic Acid 2.2 mmol/L (0.5-2.2)
[2018-12-25] MEDS: HYDROcodone/Acetaminophen 5/325 mg Tablet PO PRN (12:07)
--- NOTE | 2018-12-25 12:21 | DIS ---
DATE OF ADMISSION: 12/19/2018 DATE OF DISCHARGE: 12/25/2018 DISCHARGE DIAGNOSES: 1. Ischemia of right lower extremity. 2. Severe peripheral artery disease. 3. Severe right leg pain. 4. Paroxysmal atrial fibrillation. 5. Dyslipidemia. 6. Physical deconditioning. 7. Hypertension. CONSULTS: Cardiovascular Surgery. HOSPITAL COURSE: An 88-year-old male, who was recently discharged from the hospital following treatment for pneumonia readmitted from the halfway due to acute onset of severe right lower extremity pain. Evaluation in the ER with CT angio of aorta with bilateral runoff showed severe atherosclerotic vascular disease with aneurysmal dilatation of the infrarenal abdominal aorta as well as common iliac arteries and bilateral popliteal arteries. There was also generalized prominence of the arterial vessels. There is severe focal tandem stenosis in the proximal left superficial femoral artery. This superficial femoral artery is occluded in the proximal thigh without opacification of the popliteal or tibial or peroneal vessels on the right. There is also absence of flow in the left superficial femoral artery at the level of the adductor canal, which may be attributed to timing of the contrast bolus as opposed to focal stenosis. It is very difficult to further determine this. Tibioperoneal vessels and popliteal artery on the left are not opacified. 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 Given the severity of the presentation and CT angio, Cardiothoracic Surgery consult was obtained and they made an impression of chronic peripheral vascular disease with acute exacerbation on the right and revascularization surgery was not recommended. The patient was initially started on anticoagulation with heparin, but this was discontinued at the recommendation of the Cardiothoracic Surgery. Cardiothoracic Surgery also was of the view that the patient will at some point need amputation of the right lower extremity. Pain was treated with narcotic or analgesic with improvement and the patient was later deemed to be stable for discharge and was discharged back to the half-way facility for restorative therapy. PHYSICAL EXAMINATION: VITAL SIGNS: Temperature 99.2, pulse 57, respiratory rate 16, SpO2 of 93% on room air, blood pressure is 116/57. GENERAL: Elderly male, in no obvious distress. Afebrile. Anicteric. Acyanotic. CARDIOVASCULAR: Regular rhythm and rate with normal heart sounds one and two. RESPIRATORY: Fair air entry bilateral with some transmitted sound especially at right base posteriorly. GI: Abdomen is full, soft, nontender, nondistended with normal bowel sounds. EXTREMITIES: Right leg swelling and tenderness noted. Distal right leg and foot are cold relative to the left. NEUROLOGIC: Conscious and alert, oriented x3 with appropriate mental status. Hard of hearing. Decreased hearing ability limited assessment. DISCHARGE CONDITION: Stable. DISCHARGE MEDICATIONS: 1. Amiodarone 200 mg p.o. daily. 2. Aspirin 81 mg p.o. daily. 3. Protonix 40 mg p.o. daily. 4. Crestor 40 mg p.o. daily. 5. Guaifenesin 600 mg p.o. b.i.d. 6. Tessalon Perles 200 mg t.i.d. as needed. 7. Bisacodyl 10 mg p.o. daily p.r.n. 8. Albuterol/ipratropium nebulization q.4 hours p.r.n. 9. Sennosides/docusate sodium two tablets p.o. b.i.d. p.r.n. for constipation. 10. Tramadol 50 mg q.i.d. p.r.n. for pain. TIME SPENT: This discharge took more than 38 minutes. Job ID: [id number]
[2018-12-25] MEDS: Sodium Chloride 0.9% 1,000 ML IV SCH ×3 (12:46→22:17)
[2018-12-26] MEDS: Sodium Chloride 0.9% 1,000 ML IV SCH ×4 (04:04→20:48)
[2018-12-26 07:23] LABS: ALT (SGPT) 99 U/L (8-55); AST (SGOT) 172 U/L (5-34); Albumin 2.4 g/dL (3.4-4.8); Alkaline Phosphatase 59 U/L (40-150); Anion Gap 10 mmol/L (10-20); BUN (Urea Nitrogen) 13 mg/dL (8.4-25.7); Bilirubin, Total 0.6 mg/dL (0.2-1.2); CK (CPK) 3654 U/L (30-200); Calc. Creatinine Clearance 75 mL/min (70-130); Calcium 7.9 mg/dL (7.8-10.44); Carbon Dioxide 24 mmol/L (23-31); Chloride 104 mmol/L (98-107); Estimated GFR-MDRD Greater than 90; Globulin 2.3 g/dL (2.4-3.5); Glucose 92 mg/dL (83-110); Potassium 4.1 mmol/L (3.5-5.1); Protein, Total 4.7 g/dL (5.8-8.1); Sodium 134 mmol/L (136-145)
[2018-12-26] MEDS: Amiodarone 200 MG TAB PO SCH (09:41)
[2018-12-26] MEDS: Rosuvastatin 20 MG TAB PO SCH (09:42)
[2018-12-26] MEDS: Aspirin 81 mg Enteric Coated Tablet PO SCH (09:42)
[2018-12-26] MEDS ORDERED: Furosemide 20 MG TAB PO SCH (10:30)
--- NOTE | 2018-12-26 11:53 | PDOC.PN ---
- Subjective Encounter Start Date: 12/26/18 Encounter Start Time: 11:52 Subjective: Pain is better. No new problem -: Denied SOB, chest pain or fever - Objective Resuscitation Status - Order Detail: 12/19/18 19:48 Resuscitation Status Routine Resuscitation Status: FULL: Full Resuscitation Vital Signs & Weight: Vital Signs (12 hours) Temp Pulse Resp BP Pulse Ox 12/26/18 09:31 99.1 F 64 16 106/57 L 93 L 12/26/18 04:00 98.7 F 60 20 104/58 L 93 L 12/26/18 00:00 18 Weight Admit Weight 156 lb Weight 161 lb 12.8 oz I&O: 12/25/18 12/26/18 12/27/18 06:59 06:59 06:59 Intake Total 1240 3930 Output Total 870 1350 Balance 370 2580 Result Diagrams: 12/25/18 07:55 12/26/18 05:51 Phys Exam - Physical Examination Constitutional: NAD HEENT: moist MMs Neck: no JVD Respiratory: no wheezing, no rhonchi fair air entry with some transmitted sound. Cardiovascular: RRR Gastrointestinal: soft, non-tender, no distention, positive bowel sounds right leg edema with some tenderness awake and conversational. Moving all limbs Psychiatric: A&O x 3 Dx/Plan (1) Rhabdomyolysis Code(s): M62.82 - RHABDOMYOLYSIS Status: Acute Comment: CK down to above 3000 from above 5000. (2) Ischemia of right lower extremity Code(s): I99.8 - OTHER DISORDER OF CIRCULATORY SYSTEM Status: Acute (3) Pain of right leg Code(s): M79.604 - PAIN IN RIGHT LEG Status: Acute (4) Peripheral vascular disease of lower extremity Code(s): I73.9 - PERIPHERAL VASCULAR DISEASE, UNSPECIFIED Status: Chronic (5) Paroxysmal atrial fibrillation Code(s): I48.0 - PAROXYSMAL ATRIAL FIBRILLATION Status: Acute (6) Dyslipidemia Code(s): E78.5 - HYPERLIPIDEMIA, UNSPECIFIED Status: Chronic (7) Physical deconditioning Code(s): R53.81 - OTHER MALAISE Status: Acute (8) HTN (hypertension) Code(s): I10 - ESSENTIAL (PRIMARY) HYPERTENSION Status: Chronic (9) Abnormal LFTs Code(s): R94.5 - ABNORMAL RESULTS OF LIVER FUNCTION STUDIES Status: Acute - Plan Continue NS at 200 cc/hr -: Start low dose lasix given history of CHF. -: Get repeat CK, CMP and CBC in the am. -: continue analgesic and other medications * .
[2018-12-26] MEDS: HYDROcodone/Acetaminophen 5/325 mg Tablet PO PRN (14:39)
[2018-12-26] MEDS: HYDROcodone/Acetaminophen 10/325 mg Tablet PO PRN (22:03)
[2018-12-27] MEDS: Sodium Chloride 0.9% 1,000 ML IV SCH ×5 (01:17→18:36)
[2018-12-27 05:28] LABS: #Lymphocytes 0.4 thou/uL (1.20-3.40); #Monocytes 0.6 thou/uL (0.11-0.59); #Neutrophils 11.1 thou/uL (1.40-6.50); %Basophils 0.2 % (0.0-1.0); %Eosinophils 0.3 % (0.0-10.0); %Lymphocytes 3.4 % (21.0-51.0); %Monocytes 5.2 % (0.0-10.0); %Neutrophils 90.9 % (42.0-75.0); Hemoglobin 11.6 g/dL (14.0-18.0); Mean Corpuscular HGB CONC 32.4 g/dL (32.0-36.0); Mean Corpuscular Hemoglobin 32.8 pg (27.0-31.0); Mean Platelet Volume 6.9 fL (7.4-10.4); Platelet Count 125 thou/uL (130-400); RBC Distribution Width 12.5 % (11.5-14.5); Red Blood Cell (RBC) Count 3.55 mill/uL (4.70-6.10); White Blood Cell (WBC) Count 12.2 thou/uL (4.8-10.8)
[2018-12-27 05:50] LABS: ALT (SGPT) 135 U/L (8-55); AST (SGOT) 216 U/L (5-34); Albumin 2.4 g/dL (3.4-4.8); Alkaline Phosphatase 70 U/L (40-150); Anion Gap 10 mmol/L (10-20); BUN (Urea Nitrogen) 11 mg/dL (8.4-25.7); Bilirubin, Total 0.7 mg/dL (0.2-1.2); CK (CPK) 3880 U/L (30-200); Calc. Creatinine Clearance 68 mL/min (70-130); Carbon Dioxide 27 mmol/L (23-31); Chloride 103 mmol/L (98-107); Estimated GFR-MDRD Greater than 90; Globulin 2.6 g/dL (2.4-3.5); Glucose 97 mg/dL (83-110); Sodium 136 mmol/L (136-145)
[2018-12-27] MEDS: Furosemide 40 MG TAB PO SCH (09:54)
[2018-12-27] MEDS: Amiodarone 200 MG TAB PO SCH (09:54)
[2018-12-27] MEDS: Aspirin 81 mg Enteric Coated Tablet PO SCH (09:54)
[2018-12-27] MEDS: Rosuvastatin 20 MG TAB PO SCH (09:55)
[2018-12-27] MEDS: HYDROcodone/Acetaminophen 10/325 mg Tablet PO PRN ×2 (09:57→16:19)
--- NOTE | 2018-12-27 15:59 | PDOC.PN ---
- Subjective Encounter Start Date: 12/27/18 Encounter Start Time: 07:40 Pt seen for followup re: rhabdomyolysis. says he feels better. - Objective Resuscitation Status - Order Detail: 12/19/18 19:48 Resuscitation Status Routine Resuscitation Status: FULL: Full Resuscitation MAR Reviewed: Yes Vital Signs & Weight: Vital Signs (12 hours) Temp Pulse Resp BP Pulse Ox 12/27/18 12:14 98.6 F 59 L 21 H 123/59 L 99 12/27/18 07:37 98.6 F 61 17 112/56 L 95 12/27/18 04:00 98.5 F 54 L 18 113/60 92 L Weight Admit Weight 156 lb Weight 162 lb 1.6 oz I&O: 12/26/18 12/27/18 12/28/18 06:59 06:59 06:59 Intake Total 3930 4888 Output Total 1350 3300 Balance 2580 1588 Result Diagrams: 12/27/18 05:17 12/27/18 05:16 EKG Reviewed by me: Yes (Tele: NSR) Phys Exam - Physical Examination Constitutional: NAD HEENT: moist MMs Neck: supple Respiratory: clear to auscultation bilateral Cardiovascular: RRR Gastrointestinal: soft Neurological: moves all 4 limbs Psychiatric: normal affect Dx/Plan (1) Rhabdomyolysis Code(s): M62.82 - RHABDOMYOLYSIS Status: Acute Comment: CK improved to 3880. Continue IV fluids (2) Ischemia of right lower extremity Code(s): I99.8 - OTHER DISORDER OF CIRCULATORY SYSTEM Status: Acute Comment : Improved (3) Abnormal LFTs Code(s): R94.5 - ABNORMAL RESULTS OF LIVER FUNCTION STUDIES Status: Acute Comment: isolated transaminitis secondary to rhabdomyolysis - Plan * . Review of Systems - Review of Systems Respiratory: negative: Cough, Shortness of Breath, SOB with Excertion, Pleuritic Pain, Wheezing Cardiovascular: negative: chest pain, palpitations, orthopnea, paroxysmal nocturnal dyspnea, edema, light headedness Musculoskeletal: Leg Pain - Medications/Allergies Allergies/Adverse Reactions: Allergies Allergy/AdvReac Type Severity Reaction Status Date / Time No Known Allergies Allergy Verified 12/05/18 17:17 Medications: Current Medications Acetaminophen (Tylenol) 650 mg PO Q4H PRN PRN Reason: Headache/Fever/Mild Pain (1-3) Last Admin: 12/22/18 03:24 Dose: 650 mg Hydrocodone Bitart/Acetaminophen ([place] 10/325) 1 tab PO Q4H PRN PRN Reason: Severe Pain (7-10) Last Admin: 12/27/18 09:57 Dose: 1 tab Hydrocodone Bitart/Acetaminophen ([place] 5/325) 1 tab PO Q4H PRN PRN Reason: Moderate Pain (4-6) Last Admin: 12/26/18 14:39 Dose: 1 tab Amiodarone HCl (Cordarone) 200 mg PO DAILY [facility] Last Admin: 12/27/18 09:54 Dose: 200 mg Aspirin (Ecotrin) 81 mg PO DAILY [facility] Last Admin: 12/27/18 09:54 Dose: 81 mg Bisacodyl (Dulcolax) 10 mg PO DAILYPRN PRN PRN Reason: Constipation Last Admin: 12/24/18 08:49 Dose: 10 mg Furosemide (Lasix) 40 mg PO DAILY-AC [facility] Last Admin: 12/27/18 09:54 Dose: 40 mg Sodium Chloride (Normal Saline 0.9%) 1,000 mls @ 200 mls/hr IV .Q5H [facility] Last Admin: 12/27/18 13:14 Dose: 1,000 mls Phenol (Chloraseptic [place] 180 Ml Bot) 0 ml PO BIDPRN PRN PRN Reason: Sore Throat Last Admin: 12/20/18 14:10 Dose: 1 spr Rosuvastatin Calcium (Crestor) 40 mg PO DAILY [facility] Last Admin: 12/27/18 09:55 Dose: 40 mg Senna/Docusate Sodium (Senokot S) 2 tab PO BID PRN PRN Reason: Constipation Last Admin: 12/24/18 21:29 Dose: 2 tab Sodium Chloride (Flush - Normal Saline) 10 ml IVF Q12HR [facility] Last Admin: 12/27/18 09:55 Dose: 10 ml Sodium Chloride (Flush - Normal Saline) 10 ml IVF PRN PRN PRN Reason: Saline Flush
[2018-12-28] MEDS: Sodium Chloride 0.9% 1,000 ML IV SCH ×6 (00:05→21:38)
[2018-12-28 07:14] LABS: ALT (SGPT) 154 U/L (8-55); AST (SGOT) 228 U/L (5-34); Albumin 2.3 g/dL (3.4-4.8); Alkaline Phosphatase 90 U/L (40-150); Anion Gap 12 mmol/L (10-20); BUN (Urea Nitrogen) 8 mg/dL (8.4-25.7); Bilirubin, Total 0.6 mg/dL (0.2-1.2); CK (CPK) 3743 U/L (30-200); Calc. Creatinine Clearance 80 mL/min (70-130); Calcium 7.7 mg/dL (7.8-10.44); Carbon Dioxide 22 mmol/L (23-31); Chloride 103 mmol/L (98-107); Estimated GFR-MDRD Greater than 90; Globulin 2.6 g/dL (2.4-3.5); Glucose 96 mg/dL (83-110); Potassium 3.7 mmol/L (3.5-5.1); Protein, Total 4.9 g/dL (5.8-8.1); Sodium 133 mmol/L (136-145)
[2018-12-28 07:44] LABS: Band 9 % (5-11); Hemoglobin 11.9 g/dL (14.0-18.0); Lymphocytes 6 % (21-51); MDiff Complete? YES; Mean Corpuscular HGB CONC 31.4 g/dL (32.0-36.0); Mean Corpuscular Hemoglobin 31.6 pg (27.0-31.0); Mean Platelet Volume 6.7 fL (7.4-10.4); Monocytes 6 % (0-10); Neutrophil 79 % (42-75); Platelet Count 138 thou/uL (130-400); RBC Distribution Width 12.6 % (11.5-14.5); Red Blood Cell (RBC) Count 3.77 mill/uL (4.70-6.10); White Blood Cell (WBC) Count 12.3 thou/uL (4.8-10.8)
--- NOTE | 2018-12-28 08:12 | PDOC.PN ---
- Subjective Encounter Start Date: 12/28/18 Encounter Start Time: 08:10 Subjective: No new problem -: Still having pain right lower extremity though better - Objective Resuscitation Status - Order Detail: 12/19/18 19:48 Resuscitation Status Routine Resuscitation Status: FULL: Full Resuscitation Vital Signs & Weight: Vital Signs (12 hours) Temp Pulse Resp BP Pulse Ox 12/28/18 07:18 98.6 F 72 16 118/59 L 95 12/28/18 03:30 99.0 F 61 18 118/61 92 L Weight Admit Weight 156 lb Weight 162 lb 1.6 oz I&O: 12/27/18 12/28/18 12/29/18 06:59 06:59 06:59 Intake Total 4888 5550 Output Total 3300 2595 Balance 1588 2955 Result Diagrams: 12/28/18 06:28 12/28/18 06:28 Phys Exam - Physical Examination Constitutional: NAD HEENT: moist MMs Neck: no JVD, supple Respiratory: no rales, no rhonchi fair air entry bilaterally. Cardiovascular: RRR Gastrointestinal: soft, non-tender, no distention, positive bowel sounds Mild right leg swelling and tenderness Neurological: non-focal, moves all 4 limbs Psychiatric: A&O x 3 Dx/Plan (1) Rhabdomyolysis Code(s): M62.82 - RHABDOMYOLYSIS Status: Acute Comment: CK still high. today 3700 down from 3880 yesterday. (2) Ischemia of right lower extremity Code(s): I99.8 - OTHER DISORDER OF CIRCULATORY SYSTEM Status: Acute Comment : Improved (3) Pain of right leg Code(s): M79.604 - PAIN IN RIGHT LEG Status: Acute (4) Peripheral vascular disease of lower extremity Code(s): I73.9 - PERIPHERAL VASCULAR DISEASE, UNSPECIFIED Status: Chronic (5) Paroxysmal atrial fibrillation Code(s): I48.0 - PAROXYSMAL ATRIAL FIBRILLATION Status: Acute (6) Dyslipidemia Code(s): E78.5 - HYPERLIPIDEMIA, UNSPECIFIED Status: Chronic (7) Physical deconditioning Code(s): R53.81 - OTHER MALAISE Status: Acute (8) HTN (hypertension) Code(s): I10 - ESSENTIAL (PRIMARY) HYPERTENSION Status: Chronic (9) Abnormal LFTs Code(s): R94.5 - ABNORMAL RESULTS OF LIVER FUNCTION STUDIES Status: Acute Comment: isolated transaminitis secondary to rhabdomyolysis - Plan Increase NSto 300 cc/hr . -: Recheck CK in the am -: Continue analgesic * .
[2018-12-28] MEDS: Furosemide 40 MG TAB PO SCH (09:42)
[2018-12-28] MEDS: Amiodarone 200 MG TAB PO SCH (09:43)
[2018-12-28] MEDS: Rosuvastatin 20 MG TAB PO SCH (09:43)
[2018-12-28] MEDS: Aspirin 81 mg Enteric Coated Tablet PO SCH (09:43)
[2018-12-28] MEDS: HYDROcodone/Acetaminophen 10/325 mg Tablet PO PRN ×2 (14:14→21:38)
[2018-12-29] MEDS: Sodium Chloride 0.9% 1,000 ML IV SCH ×10 (01:31→20:51)
[2018-12-29] MEDS: HYDROcodone/Acetaminophen 10/325 mg Tablet PO PRN ×3 (05:42→20:50)
[2018-12-29 07:01] LABS: #Lymphocytes 0.4 thou/uL (1.20-3.40); #Monocytes 0.7 thou/uL (0.11-0.59); #Neutrophils 9.6 thou/uL (1.40-6.50); %Eosinophils 0.2 % (0.0-10.0); %Lymphocytes 3.9 % (21.0-51.0); %Monocytes 6.1 % (0.0-10.0); %Neutrophils 89.7 % (42.0-75.0); Hemoglobin 12.5 g/dL (14.0-18.0); Mean Corpuscular HGB CONC 30.6 g/dL (32.0-36.0); Mean Corpuscular Hemoglobin 31.2 pg (27.0-31.0); Mean Platelet Volume 7.8 fL (7.4-10.4); Platelet Count 142 thou/uL (130-400); RBC Distribution Width 12.7 % (11.5-14.5); White Blood Cell (WBC) Count 10.7 thou/uL (4.8-10.8)
[2018-12-29 07:21] LABS: ALT (SGPT) 333 U/L (8-55); AST (SGOT) 596 U/L (5-34); Albumin 2.5 g/dL (3.4-4.8); Alkaline Phosphatase 333 U/L (40-150); Anion Gap 14 mmol/L (10-20); BUN (Urea Nitrogen) 10 mg/dL (8.4-25.7); Bilirubin, Total 2.4 mg/dL (0.2-1.2); Calc. Creatinine Clearance 71 mL/min (70-130); Calcium 8.1 mg/dL (7.8-10.44); Carbon Dioxide 20 mmol/L (23-31); Chloride 104 mmol/L (98-107); Estimated GFR-MDRD Greater than 90; Globulin 2.9 g/dL (2.4-3.5); Glucose 80 mg/dL (83-110); Potassium 3.7 mmol/L (3.5-5.1); Protein, Total 5.4 g/dL (5.8-8.1); Sodium 134 mmol/L (136-145)
[2018-12-29 07:33] LABS: CK (CPK) 4463 U/L (30-200)
[2018-12-29] MEDS: Amiodarone 200 MG TAB PO SCH (08:42)
[2018-12-29] MEDS: Furosemide 40 MG TAB PO SCH (08:42)
[2018-12-29] MEDS: Rosuvastatin 20 MG TAB PO SCH (08:42)
[2018-12-29] MEDS: Aspirin 81 mg Enteric Coated Tablet PO SCH (08:42)
--- NOTE | 2018-12-29 10:09 | PDOC.PN ---
- Subjective Encounter Start Date: 12/29/18 Encounter Start Time: 10:07 Subjective: Still having right leg pain/tenderness though improved. - Objective Resuscitation Status - Order Detail: 12/19/18 19:48 Resuscitation Status Routine Resuscitation Status: FULL: Full Resuscitation Vital Signs & Weight: Vital Signs (12 hours) Temp Pulse Resp BP Pulse Ox 12/29/18 08:40 109/62 12/29/18 07:28 97.7 F 62 18 102/57 L 98 12/29/18 03:54 98.1 F 62 18 118/63 98 Weight Admit Weight 156 lb Weight 162 lb 1.6 oz I&O: 12/28/18 12/29/18 12/30/18 06:59 06:59 06:59 Intake Total 5550 8120 Output Total 2595 4415 Balance 2955 3705 Result Diagrams: 12/29/18 05:43 12/29/18 05:43 Phys Exam - Physical Examination Constitutional: NAD HEENT: moist MMs Neck: no JVD, supple Respiratory: no wheezing, no rhonchi Fair air entry bilaterally with few scattered transmitted sound Cardiovascular: RRR Gastrointestinal: soft, non-tender, no distention, positive bowel sounds Mild right leg edema. Neurological: non-focal, moves all 4 limbs hard of hearing. Psychiatric: A&O x 3 Dx/Plan (1) Rhabdomyolysis Code(s): M62.82 - RHABDOMYOLYSIS Status: Acute Comment: CK is up today from 3700 to 4400 despite increase in NS from 200 to 300 cc/hr. (2) Ischemia of right lower extremity Code(s): I99.8 - OTHER DISORDER OF CIRCULATORY SYSTEM Status: Acute Comment : Improved (3) Pain of right leg Code(s): M79.604 - PAIN IN RIGHT LEG Status: Acute (4) Peripheral vascular disease of lower extremity Code(s): I73.9 - PERIPHERAL VASCULAR DISEASE, UNSPECIFIED Status: Chronic (5) Paroxysmal atrial fibrillation Code(s): I48.0 - PAROXYSMAL ATRIAL FIBRILLATION Status: Acute (6) Dyslipidemia Code(s): E78.5 - HYPERLIPIDEMIA, UNSPECIFIED Status: Chronic (7) Physical deconditioning Code(s): R53.81 - OTHER MALAISE Status: Acute (8) HTN (hypertension) Code(s): I10 - ESSENTIAL (PRIMARY) HYPERTENSION Status: Chronic (9) Abnormal LFTs Code(s): R94.5 - ABNORMAL RESULTS OF LIVER FUNCTION STUDIES Status: Acute Comment: isolated transaminitis secondary to rhabdomyolysis - Plan Will increase IVF rate to 500 cc/hr for 4 hours and recheck CK . -: we will reduce rate to 300 due to patient age and hx of CHF. -: Will also continue low dose lasix. -: Analgesic to continue as well as PT. * .
[2018-12-30] MEDS: Sodium Chloride 0.9% 1,000 ML IV SCH ×10 (01:00→22:44)
[2018-12-30 05:13] LABS: #Lymphocytes 0.4 thou/uL (1.20-3.40); #Monocytes 0.7 thou/uL (0.11-0.59); #Neutrophils 11.3 thou/uL (1.40-6.50); %Basophils 0.1 % (0.0-1.0); %Eosinophils 0.4 % (0.0-10.0); %Lymphocytes 3.3 % (21.0-51.0); %Monocytes 5.4 % (0.0-10.0); %Neutrophils 90.9 % (42.0-75.0); Hemoglobin 12.4 g/dL (14.0-18.0); Mean Corpuscular HGB CONC 30.1 g/dL (32.0-36.0); Mean Corpuscular Hemoglobin 29.8 pg (27.0-31.0); Mean Corpuscular Volume 99.2 fL (78.0-98.0); Mean Platelet Volume 6.5 fL (7.4-10.4); Platelet Count 221 thou/uL (130-400); RBC Distribution Width 12.7 % (11.5-14.5); Red Blood Cell (RBC) Count 4.17 mill/uL (4.70-6.10); White Blood Cell (WBC) Count 12.5 thou/uL (4.8-10.8)
[2018-12-30 06:14] LABS: ALT (SGPT) 334 U/L (8-55); AST (SGOT) 457 U/L (5-34); Albumin 2.3 g/dL (3.4-4.8); Alkaline Phosphatase 421 U/L (40-150); Anion Gap 12 mmol/L (10-20); BUN (Urea Nitrogen) 9 mg/dL (8.4-25.7); CK (CPK) 3834 U/L (30-200); Calc. Creatinine Clearance 68 mL/min (70-130); Calcium 7.6 mg/dL (7.8-10.44); Carbon Dioxide 23 mmol/L (23-31); Chloride 104 mmol/L (98-107); Estimated GFR-MDRD Greater than 90; Globulin 2.8 g/dL (2.4-3.5); Glucose 79 mg/dL (83-110); Potassium 3.1 mmol/L (3.5-5.1); Protein, Total 5.1 g/dL (5.8-8.1); Sodium 136 mmol/L (136-145)
[2018-12-30] MEDS: Furosemide 40 MG TAB PO SCH (08:14)
[2018-12-30] MEDS: HYDROcodone/Acetaminophen 10/325 mg Tablet PO PRN ×3 (08:15→22:43)
[2018-12-30] MEDS: Amiodarone 200 MG TAB PO SCH (08:15)
[2018-12-30] MEDS: Rosuvastatin 20 MG TAB PO SCH (08:15)
[2018-12-30] MEDS: Aspirin 81 mg Enteric Coated Tablet PO SCH (08:15)
[2018-12-30] MEDS: Potassium Chloride 20 MEQ TAB PO SCH ×2 (11:11→14:20)
[2018-12-30 12:59] VITALS: BMI 21.9
--- NOTE | 2018-12-30 17:46 | PDOC.PN ---
- Subjective Encounter Start Date: 12/30/18 Encounter Start Time: 10:44 Subjective: Seen and examined. -: No new problem -: Still having right leg pain and tenderness. chest pain or SOB - Objective Resuscitation Status - Order Detail: 12/19/18 19:48 Resuscitation Status Routine Resuscitation Status: FULL: Full Resuscitation Vital Signs & Weight: Vital Signs (12 hours) Temp Pulse Resp BP BP Pulse Ox 12/30/18 16:16 97.4 F L 88 18 119/69 95 12/30/18 13:16 98 12/30/18 11:12 97.8 F 97 18 109/62 98 12/30/18 08:05 98.7 F 99 18 120/62 95 Weight Admit Weight 156 lb Weight 162 lb 1.6 oz I&O: 12/29/18 12/30/18 12/31/18 06:59 06:59 06:59 Intake Total 8120 8940 Output Total 4415 4400 Balance 3705 4540 Result Diagrams: 12/30/18 04:51 12/30/18 04:51 Phys Exam - Physical Examination Constitutional: NAD HEENT: PERRLA, moist MMs Neck: no JVD, supple Respiratory: no rales, no rhonchi fair air entry bilaterally Cardiovascular: RRR Gastrointestinal: soft, no distention, positive bowel sounds right leg edema and tenderness. No edema in other extremities Neurological: non-focal, moves all 4 limbs Psychiatric: A&O x 3 Dx/Plan (1) Rhabdomyolysis Code(s): M62.82 - RHABDOMYOLYSIS Status: Acute Comment: CK started trending with escated IVF to 500 cc/hr for 4 hours. (2) Ischemia of right lower extremity Code(s): I99.8 - OTHER DISORDER OF CIRCULATORY SYSTEM Status: Acute Comment : Improved (3) Pain of right leg Code(s): M79.604 - PAIN IN RIGHT LEG Status: Acute (4) Peripheral vascular disease of lower extremity Code(s): I73.9 - PERIPHERAL VASCULAR DISEASE, UNSPECIFIED Status: Chronic (5) Paroxysmal atrial fibrillation Code(s): I48.0 - PAROXYSMAL ATRIAL FIBRILLATION Status: Acute (6) Dyslipidemia Code(s): E78.5 - HYPERLIPIDEMIA, UNSPECIFIED Status: Chronic (7) Physical deconditioning Code(s): R53.81 - OTHER MALAISE Status: Acute (8) HTN (hypertension) Code(s): I10 - ESSENTIAL (PRIMARY) HYPERTENSION Status: Chronic (9) Abnormal LFTs Code(s): R94.5 - ABNORMAL RESULTS OF LIVER FUNCTION STUDIES Status: Acute Comment: isolated transaminitis secondary to rhabdomyolysis - Plan Increase NS to 400 from 300 cc/hr -: Continue lasix 40 mg daily -: Close monitoring for possible fluid overload -: Recheck CK and CMP in the am. * .
[2018-12-31] MEDS: Sodium Chloride 0.9% 1,000 ML IV SCH ×4 (01:34→10:44)
[2018-12-31 06:02] LABS: ALT (SGPT) 238 U/L (8-55); AST (SGOT) 316 U/L (5-34); Albumin 2.1 g/dL (3.4-4.8); Alkaline Phosphatase 350 U/L (40-150); Anion Gap 10 mmol/L (10-20); BUN (Urea Nitrogen) 9 mg/dL (8.4-25.7); Bilirubin, Total 0.6 mg/dL (0.2-1.2); Calc. Creatinine Clearance 69 mL/min (70-130); Calcium 7.4 mg/dL (7.8-10.44); Carbon Dioxide 21 mmol/L (23-31); Chloride 108 mmol/L (98-107); Estimated GFR-MDRD Greater than 90; Globulin 2.7 g/dL (2.4-3.5); Glucose 81 mg/dL (83-110); Potassium 3.1 mmol/L (3.5-5.1); Protein, Total 4.8 g/dL (5.8-8.1); Sodium 136 mmol/L (136-145)
[2018-12-31 06:15] LABS: CK (CPK) 4368 U/L (30-200)
[2018-12-31] MEDS: Furosemide 40 MG TAB PO SCH (07:20)
[2018-12-31] MEDS: HYDROcodone/Acetaminophen 10/325 mg Tablet PO PRN (08:18)
[2018-12-31] MEDS: Amiodarone 200 MG TAB PO SCH (08:18)
[2018-12-31] MEDS: Aspirin 81 mg Enteric Coated Tablet PO SCH (08:22)
[2018-12-31] MEDS: Potassium Chloride 20 MEQ TAB PO SCH ×3 (10:33→17:26)
--- NOTE | 2018-12-31 11:48 | PDOC.PN ---
- Subjective Encounter Start Date: 12/31/18 Encounter Start Time: 09:46 Subjective: No new problem -: oral intake is adequate. -: Still having right leg pain. now having upper extremity edema. no SOB - Objective Resuscitation Status - Order Detail: 12/19/18 19:48 Resuscitation Status Routine Resuscitation Status: FULL: Full Resuscitation Vital Signs & Weight: Vital Signs (12 hours) Temp Pulse Pulse Pulse Resp BP BP 12/31/18 11:23 97.2 F L 74 18 12/31/18 08:50 82 78 108/59 L 106/61 12/31/18 07:15 12/31/18 07:14 98.5 F 83 18 12/31/18 04:00 72 BP BP Pulse Ox 12/31/18 11:23 110/58 L 97 12/31/18 08:50 12/31/18 07:15 98 12/31/18 07:14 107/62 98 12/31/18 04:00 113/64 Weight Admit Weight 156 lb Weight 162 lb 1.6 oz I&O: 12/30/18 12/31/18 01/01/19 06:59 06:59 06:59 Intake Total 8940 9800 Output Total 4400 4460 Balance 4540 5340 Result Diagrams: 12/30/18 04:51 12/31/18 05:03 Phys Exam - Physical Examination Constitutional: NAD HEENT: PERRLA, moist MMs Neck: supple fair air entry bilaterally. No distress Cardiovascular: RRR Gastrointestinal: soft, non-tender, no distention, positive bowel sounds Edema of both upper limbs as well as right lower limb Neurological: non-focal Moves all limbs though limited on the right LL due to pain. Very hard of hearing Psychiatric: A&O x 3 Dx/Plan (1) Rhabdomyolysis Code(s): M62.82 - RHABDOMYOLYSIS Status: Acute Comment: CK still above 4000 despite aggressive IV fluid therapy. This is due to severe ischemia of right leg. (2) Ischemia of right lower extremity Code(s): I99.8 - OTHER DISORDER OF CIRCULATORY SYSTEM Status: Acute Comment : Improved (3) Pain of right leg Code(s): M79.604 - PAIN IN RIGHT LEG Status: Acute (4) Peripheral vascular disease of lower extremity Code(s): I73.9 - PERIPHERAL VASCULAR DISEASE, UNSPECIFIED Status: Chronic (5) Paroxysmal atrial fibrillation Code(s): I48.0 - PAROXYSMAL ATRIAL FIBRILLATION Status: Acute (6) Dyslipidemia Code(s): E78.5 - HYPERLIPIDEMIA, UNSPECIFIED Status: Chronic (7) Physical deconditioning Code(s): R53.81 - OTHER MALAISE Status: Acute (8) HTN (hypertension) Code(s): I10 - ESSENTIAL (PRIMARY) HYPERTENSION Status: Chronic (9) Abnormal LFTs Code(s): R94.5 - ABNORMAL RESULTS OF LIVER FUNCTION STUDIES Status: Acute Comment: isolated transaminitis secondary to rhabdomyolysis - Plan Despite aggressive IVF therapy with NS running currently at 400 cc/hr, CK remained above 4000. Patient is now developing swelling despite diuretics. This is felt to due to severe ischemia injury/necrosis of the right leg muscles. Contacted CTS for re-evaluation re: consideration for intervention/amputation. Talked with patient and son about options Palliative vs amputation since despite fluid therapy, CK is not trending down due persistent ischemia of the right leg. Son reported that patient doesn't want to hear about amputation and that amputation is not an option. They are open to palliative/comfort care. We will Dc IVF due to developement of edema. We will continue diuretic We will also comfort palliative care. * .
[2018-12-31] MEDS ORDERED: traMADol HCl 50 MG TAB PO SCH (22:15)
[2019-01-01 07:05] LABS: Anion Gap 14 mmol/L (10-20); BUN (Urea Nitrogen) 12 mg/dL (8.4-25.7); CK (CPK) 3027 U/L (30-200); Calc. Creatinine Clearance 59 mL/min (70-130); Calcium 8.5 mg/dL (7.8-10.44); Carbon Dioxide 19 mmol/L (23-31); Chloride 104 mmol/L (98-107); Estimated GFR-MDRD 78; Glucose 90 mg/dL (83-110); Sodium 133 mmol/L (136-145)
[2019-01-01] MEDS: Furosemide 40 MG TAB PO SCH (09:15)
[2019-01-01] MEDS: Aspirin 81 mg Enteric Coated Tablet PO SCH (09:16)
--- NOTE | 2019-01-01 10:05 | PDOC.PN ---
- Subjective Encounter Start Date: 01/01/19 Encounter Start Time: 10:03 Subjective: No new problem -: right leg pain is controlled. - Objective Resuscitation Status - Order Detail: 12/19/18 19:48 Resuscitation Status Routine Resuscitation Status: FULL: Full Resuscitation Vital Signs & Weight: Vital Signs (12 hours) Temp Pulse Resp BP Pulse Ox 01/01/19 04:00 98.2 F 100 17 124/77 93 L Weight Admit Weight 156 lb Weight 162 lb 1.6 oz I&O: 12/31/18 01/01/19 01/02/19 06:59 06:59 06:59 Intake Total 9800 2450 Output Total 4460 3100 Balance 5340 -650 Result Diagrams: 12/30/18 04:51 01/01/19 06:22 Phys Exam - Physical Examination HEENT: moist MMs Neck: supple fair air entry bilaterally with few transmitted sound Cardiovascular: irregular Gastrointestinal: soft, non-tender, no distention, positive bowel sounds Edema of upper limbs as well as right lower limb Awake and conversational. Hard of hearing. Psychiatric: A&O x 3 Dx/Plan (1) Rhabdomyolysis Code(s): M62.82 - RHABDOMYOLYSIS Status: Acute Comment: CK down today despite discontinuation of IVF. (2) Ischemia of right lower extremity Code(s): I99.8 - OTHER DISORDER OF CIRCULATORY SYSTEM Status: Acute Comment : Severe. CTSrecommended amputaion if it worsens. (3) Pain of right leg Code(s): M79.604 - PAIN IN RIGHT LEG Status: Acute (4) Peripheral vascular disease of lower extremity Code(s): I73.9 - PERIPHERAL VASCULAR DISEASE, UNSPECIFIED Status: Chronic (5) Paroxysmal atrial fibrillation Code(s): I48.0 - PAROXYSMAL ATRIAL FIBRILLATION Status: Acute Comment: Currently not on anticoagulation. (6) Dyslipidemia Code(s): E78.5 - HYPERLIPIDEMIA, UNSPECIFIED Status: Chronic (7) Physical deconditioning Code(s): R53.81 - OTHER MALAISE Status: Acute (8) HTN (hypertension) Code(s): I10 - ESSENTIAL (PRIMARY) HYPERTENSION Status: Chronic (9) Abnormal LFTs Code(s): R94.5 - ABNORMAL RESULTS OF LIVER FUNCTION STUDIES Status: Acute Comment: isolated transaminitis secondary to rhabdomyolysis - Plan Continue lasix. -: Will restart crestor. -: consult cardiology Re PAF but not on anticoagulation Reason unclear -: For Discharge to SNF once arrangement concluded * .
[2019-01-01] MEDS ORDERED: Magnesium Sulfate 4 GM in Sodium Chloride 0.9% 250 ML 250 ML IVPB SCH (11:00)
[2019-01-01] MEDS: HYDROcodone/Acetaminophen 5/325 mg Tablet PO PRN ×2 (11:31→20:11)
--- NOTE | 2019-01-01 18:28 | CON ---
DATE OF CONSULTATION: 01/01/2019 REASON FOR CONSULTATION: History of atrial fibrillation. We will evaluate for possible need for anticoagulation. PRIMARY GARAGE WORKER: Cassia Corbett MD HISTORY OF PRESENT ILLNESS: Mr. Johnson is a pleasant 88-year-old white gentleman, who comes to the hospital for lower extremity pain. He was diagnosed with severe PVD that is best left treated medically and Cardiology is being consulted as he has a history of atrial fibrillation and he is not on any anticoagulation. Currently, denies any chest pain, tightness, or pressure. No other issues. PAST MEDICAL HISTORY: 1. Peripheral vascular disease as above. 2. Coronary artery disease, status post CABG. 3. Ischemic cardiomyopathy, EF at 20% to 25%. 4. History of atrial fibrillation. I looked into this on several notes and apparently this is postoperative atrial fibrillation. It then perpetrated as paroxysmal atrial fibrillation. However, I do not see anywhere where he had any recurrence of atrial fibrillation after his surgery, during which he was started on amiodarone and he did have postoperative atrial fibrillation, but never did he have atrial fibrillation prior to this and he has not had any since. 5. Hypertension. PAST SURGICAL HISTORY: 1. CABG x3. 2. Hip surgery. ALLERGIES: NO KNOWN DRUG ALLERGIES. OUTPATIENT MEDICATIONS: 1. Amiodarone 200 mg a day. 2. Aspirin 81 a day. 3. DuoNeb. 4. Tessalon Perles. 5. Mucinex. 6. Protonix. 7. Lisinopril 5 mg a day. 8. Crestor 40 mg a day. 9. Tramadol. 10. Senna. 11. Chloraseptic. 12. Dulcolax. ALLERGIES: NO KNOWN DRUG ALLERGIES. SOCIAL HISTORY: No alcohol, tobacco, or drugs. FAMILY HISTORY: Noncontributory. REVIEW OF SYSTEMS: A 12-point review of systems was done and was found to be negative unless stated in the history of present illness. PHYSICAL EXAMINATION: VITAL SIGNS: Temperature 97.5, pulse 74, respiratory rate 20, saturating 96% on room air, and blood pressure 132/72. GENERAL: Awake, alert, and oriented x3. No distress. HEENT: Normocephalic and atraumatic. NECK: Supple. LUNGS: Clear. CARDIOVASCULAR: S1 and S2. No S3 or S4. No murmurs. ABDOMEN: Soft. Positive bowel sounds. EXTREMITIES: Trace edema. SKIN: Warm and dry. LABORATORY DATA: Laboratory work was reviewed. CBC and CMP were reviewed. ASSESSMENT AND PLAN: 1. Atrial fibrillation. Apparently, this is postoperative atrial fibrillation. I have not seen any notes that have shown any recurrence in atrial fibrillation other than in the postoperative state. He was started on amiodarone at that time and he has been on amiodarone since. I will defer to Dr. Corbett, but at this time, I do not see any indications for full anticoagulation as he has not had a recurrence of his atrial fibrillation except in the postoperative state, which is expected and not treated in the same manner as chronic or paroxysmal atrial fibrillation would be. Other than that, he also has a history of life-threatening bleeding from peptic ulcer disease, which would also make him not be a good candidate for any full anticoagulation as well. 2. Dr. Corbett, his primary automotive power electronics engineer will follow up in the morning. Job ID: [id number]
[2019-01-01] MEDS ORDERED: Tamsulosin HCl 0.4 MG CAP PO SCH (21:00)
[2019-01-02 05:55] LABS: Anion Gap 11 mmol/L (10-20); BUN (Urea Nitrogen) 14 mg/dL (8.4-25.7); CK (CPK) 2134 U/L (30-200); Calc. Creatinine Clearance 61 mL/min (70-130); Calcium 8.4 mg/dL (7.8-10.44); Carbon Dioxide 26 mmol/L (23-31); Chloride 100 mmol/L (98-107); Estimated GFR-MDRD 81; Glucose 105 mg/dL (83-110); Magnesium 2.4 mg/dL (1.6-2.6); Potassium 3.7 mmol/L (3.5-5.1); Sodium 133 mmol/L (136-145)
[2019-01-02 08:04] VITALS: TEMP 98.2
--- NOTE | 2019-01-02 08:39 | DIS ---
DATE OF ADMISSION: 12/19/2018 DATE OF DISCHARGE: 01/02/2019 DISCHARGE DIAGNOSES: 1. Severe ischemia of right lower extremity. 2. Severe peripheral artery disease. 3. Severe right leg pain. 4. Paroxysmal atrial fibrillation. 5. Dyslipidemia. 6. Rhabdomyolysis. 7. Hypertension. 8. Physical deconditioning. 9. Prostatism. 10. Ischemic cardiomyopathy with ejection fraction of 35 to 40. 11. History of peptic ulcer disease. CONSULTS: 1. Cardiovascular Surgery. 2. Cardiology. HOSPITAL COURSE: An 88-year-old male, who was recently discharged from the hospital following treatment for pneumonia. We admitted from correction facility due to acute onset of severe right lower extremity pain. 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 Also noted with severe focal tandem stenosis in the proximal left superficial femoral artery and the superficial artery is occluded in the proximal thigh without opacification of the popliteal or tibia or peroneal vessels on the right and there also was absent of flow in the left superficial femoral artery at the level of the adductor canal. Cardiothoracic Surgery consult was obtained due to severity of presentation and CT results, but they have the impression that the patient has chronic peripheral vascular disease with acute exacerbation and this is not amenable for revascularization. They, however, recommended amputation of the affected limb should symptom worsen or the leg became necrotic. The patient initially was started on anticoagulation with heparin, which was later discontinued at the recommendation of Cardiothoracic Surgery. The patient was treated with analgesics and physical therapy with some improvement. He was to be discharged, but was found to have elevated CPK consistent with rhabdomyolysis. Discharge was canceled and the patient was started on IV fluids. After initial drop in CK level, it was trending up despite escalation of IV fluid and there is persisted right lower extremity swelling and tenderness as well as relative coldness. It was felt that the patient was having ischemic necrosis leading to rhabdomyolysis. Crestor was initially discontinued, but CK continued to trend up. Following discussion with Cardiothoracic Surgery about the current situation, then we have of the view that the patient will benefit from amputation, but the patient and relative do not consider that as an option. Palliative Care consult was obtained and the patient preferred to keep the leg and continue to take analgesic. IV fluid was subsequently discontinued due to worsening swelling. Surprisingly, CPK started trending down was with discontinuation of IV fluid. Hospital course also was complicated by development of urinary dribbling and poor urine flow, which was felt to be related to prostatism. The patient was started on Flomax and finasteride. The patient also have paroxysmal atrial fibrillation, hence Cardiology consult was requested due to the further, the patient is not on anticoagulation. Following re-evaluation, Cardiology was of the view that since the patient's AFib started after a procedure and is on amiodarone and also has prior history of life-threatening peptic ulcer bleeding that he is not a candidate for anticoagulation. The patient remained stable and was discharged back to the correction facility for further restorative therapy. PHYSICAL EXAMINATION: VITALS SIGNS: Temperature 97.8, pulse 73, respiratory rate 18, SpO2 of 93% on room air, and blood pressure is 114/58. GENERAL: Elderly male, in no obvious distress. Afebrile. Anicteric. Acyanotic. HEENT: Normocephalic, atraumatic. Pupils are equal and reacting to light. CARDIOVASCULAR: Regular rhythm and rate with normal heart sounds 1 and 2. RESPIRATORY: Good air entry with some transmitted sounds. GASTROINTESTINAL: Abdomen is full, soft, nontender, and nondistended with normal bowel sounds. EXTREMITIES: Edema of all the extremities noticed, mostly on the right lower extremity. NEUROLOGIC: Conscious and alert, oriented x3 with appropriate mental status. The patient moves all extremities, though movement is limited at the right lower extremity due to pain. The patient is hard of hearing. DISCHARGE CONDITION: Improved and stable. FOLLOWUP: 1. The patient is to follow with facility physician or PCP within 7 days of discharge. 2. The patient also is to follow with Cardiology in 3 to 4 weeks. DISCHARGE MEDICATIONS: 1. Amiodarone 200 mg p.o. daily. 2. Aspirin 81 mg p.o. daily. 3. Protonix 40 mg p.o. daily. 4. Crestor 40 mg p.o. daily. 5. Tessalon Perles 200 mg t.i.d. as needed. 6. Bisacodyl 10 mg p.o. daily p.r.n. 7. Sennoside/docusate sodium 2 tablets p.o. b.i.d. p.r.n. for constipation. 8. Tramadol 50 mg q.i.d. p.r.n. for pain. 9. Flomax 0.4 mg p.o. daily. 10. Finasteride 5 mg p.o. daily. 11. Lasix 40 mg p.o. daily. 12. Acetaminophen 650 mg p.o. q.4 p.r.n. for pain. 13. Mucinex 600 mg p.o. b.i.d. TIME SPENT: This discharge took more than 38 minutes. Job ID: [id number]
[2019-01-02] MEDS: Furosemide 40 MG TAB PO SCH (08:55)
[2019-01-02] MEDS: Amiodarone 200 MG TAB PO SCH (08:55)
[2019-01-02] MEDS: Aspirin 81 mg Enteric Coated Tablet PO SCH (08:55)
[2019-01-02] MEDS ORDERED: Finasteride 5 MG TAB PO SCH (09:00)
[2019-01-02] MEDS: Acetaminophen 325 MG TAB PO PRN (09:10)
--- NOTE | 2019-01-02 09:44 | PDOC.CTH ---
Cardiology Progress Note - Subjective The pt seen and examined. No overnight events. No cardiac complaints. - Objective Vital Signs Temp Pulse Resp BP BP Pulse Ox 01/02/19 07:15 98.2 F 78 18 91/58 L 98 01/02/19 03:39 97.8 F 73 18 114/58 L 93 L Admit Weight 156 lb Weight 162 lb 1.6 oz 01/01/19 01/02/19 01/03/19 06:59 06:59 06:59 Intake Total 2450 1250 Output Total 3100 1620 Balance -650 -370 - Physical Examination Neck: carotid US brisk Lungs: other: (diminished at bases) Heart: other: (irregular) Abdomen: soft Extremities: other: - Telemetry Telemetry Rhythm: AFib - Labs Result Diagrams: 12/30/18 04:51 01/02/19 05:06 - Assessment/Plan 1. Prox AFib - Well controlled HR; On Amiodarone 200mg qd and ASA 81mg qd; not on OAC due to hx of GI bleed 2. Severe PVD in RLE - medical tx only 3. CAD with hx of CABG x3 - stable; not on BBlocker due to hypotensive; on ASA 81mg and Crestor 4. Ischemic CMY with EF 35-40% in 12/2018 - stable; May resume MONICA or start low dose of bblocker with stable BP 5. HTN - stable 6. HLD - on Crestor 7. Hx of GI bleed 8. Rhabdomyolysis MAR reviewed * From Cardiac standpoint, the pt is stable to tx to Rehab. * F/u with Dr Corbett' office within 2wks after he d/c from Rehab. Review of Systems - Review of Systems Constitutional: reports: no symptoms reported EENTM: reports: no symptoms reported Respiratory: reports: no symptoms reported Cardiac (ROS): reports: no symptoms reported ABD/GI: reports: no symptoms reported : reports: no symptoms reported
[2019-01-02 12:42] VITALS: BP 91/55
== END 2019-01-02 13:50 | DRG 300 ==
LOC: ERS 15:13 → 2NO 19:38
PROVIDERS: ADMIT Internal Medicine; ATTEND Internal Medicine
DX: I70.201 Unspecified atherosclerosis of native arteries of extremities, right leg (principal); M62.82 Rhabdomyolysis; I25.10 Atherosclerotic heart disease of native coronary artery without angina pectoris; I10 Essential (primary) hypertension; E78.5 Hyperlipidemia, unspecified; I48.0 Paroxysmal atrial fibrillation; R94.5 Abnormal results of liver function studies; I25.5 Ischemic cardiomyopathy; N40.0 Benign prostatic hyperplasia without lower urinary tract symptoms; Z79.899 Other long term (current) drug therapy; Z79.82 Long term (current) use of aspirin; Z87.11 Personal history of peptic ulcer disease; Z95.1 Presence of aortocoronary bypass graft; Z87.01 Personal history of pneumonia (recurrent)
CPT/HCPCS: 36415; 71045; 75635; 80048; 80053; 82550; 83605; 83735; 85014; 85018; 85025; 85610; 85730; 93005; 96365; 96366; 96375; J1644; J2270; J3475; J7050; Q9966

== ENCOUNTER 2019-01-05 19:55 | Inpatient (IN) | payer MEDICARE ==
[2019-01-05 20:46] LABS: Bilirubin Negative (Negative); Blood, Urine Moderate (Negative); Clarity CLOUDY (Clear); Glucose, Urine (Dipstick) Negative (Negative); Leukocyte Negative (Negative); Nitrite Negative (Negative); Protein, Urine (Dipstick) 30 mg/dL (Neg-Trace); Specific Gravity, Urine 1.014 (1.002-1.036)
[2019-01-05 20:49] LABS: Bacteria/HPF None Seen HPF (None Seen); Pathc Cast-AUWi Flag 4.48 (0-2.49); Squamous Epithelial 0-3 HPF (0-3); WBC/HPF 0-3 HPF (0-3)
[2019-01-05 21:14] LABS: #Eosinphils 0.1 thou/uL (0.0-0.7); #Lymphocytes 0.7 thou/uL (1.20-3.40); #Monocytes 0.8 thou/uL (0.11-0.59); #Neutrophils 12.8 thou/uL (1.40-6.50); %Eosinophils 0.8 % (0.0-10.0); %Lymphocytes 4.8 % (21.0-51.0); %Monocytes 5.6 % (0.0-10.0); %Neutrophils 88.7 % (42.0-75.0); Hemoglobin 11.3 g/dL (14.0-18.0); Mean Corpuscular HGB CONC 32.4 g/dL (32.0-36.0); Mean Corpuscular Hemoglobin 32.2 pg (27.0-31.0); Mean Corpuscular Volume 99.3 fL (78.0-98.0); Mean Platelet Volume 6.3 fL (7.4-10.4); Platelet Count 298 thou/uL (130-400); RBC Distribution Width 13.2 % (11.5-14.5); Red Blood Cell (RBC) Count 3.51 mill/uL (4.70-6.10); White Blood Cell (WBC) Count 14.4 thou/uL (4.8-10.8)
[2019-01-05 21:20] LABS: INR-International Normal Ratio 1.2; PTT 35.9 SEC (22.9-36.1); Prothrombin Time 14.8 SEC (12.0-14.7)
--- NOTE | 2019-01-05 21:21 | RAD ---
XR Ankle Rt 3 View STANDARD History: [Gangrene] Comparison: None. Findings: Degenerative changes of the ankle. Mild osteopenia. Dense vascular calcifications. Abnormal lucency of the dorsal talar neck. Impression: No definite evidence of osteomyelitis. 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 MRI recommended if clinically warranted.
--- NOTE | 2019-01-05 21:22 | RAD ---
XR Foot Rt 2 View History: [Gangrene] Comparison: None. Findings: Hallux valgus deformity with mild metatarsus primus varus. No definite erosions or periosti tis. 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 MRI recommended clinically warranted to eval uate for osteomyelitis.
[2019-01-05 21:34] LABS: ALT (SGPT) 131 U/L (8-55); AST (SGOT) 111 U/L (5-34); Albumin 2.5 g/dL (3.4-4.8); Alkaline Phosphatase 217 U/L (40-150); Anion Gap 13 mmol/L (10-20); BUN (Urea Nitrogen) 22 mg/dL (8.4-25.7); Bilirubin, Total 0.6 mg/dL (0.2-1.2); CK (CPK) 1204 U/L (30-200); Calc. Creatinine Clearance 0 mL/min (70-130); Calcium 7.5 mg/dL (7.8-10.44); Carbon Dioxide 30 mmol/L (23-31); Chloride 98 mmol/L (98-107); Estimated GFR-MDRD 65; Globulin 2.5 g/dL (2.4-3.5); Glucose 133 mg/dL (83-110); Sodium 138 mmol/L (136-145)
[2019-01-05 21:40] LABS: Potassium 2.8 mmol/L (3.5-5.1)
[2019-01-05] MEDS ORDERED: Morphine 4 MG/ML VIAL ONE (21:59)
[2019-01-05 22:00] LABS: CKMB 19.4 ng/mL (0-6.6)
[2019-01-05] MEDS ORDERED: Piperacillin/Tazobactam 4.5 GM VIAL ONE (22:19)
[2019-01-05] MEDS ORDERED: Potassium Chloride 40 MEQ in Sodium Chloride 0.9% 500 ML IVPB SCH (22:30)
[2019-01-05] MEDS ORDERED: Bisacodyl 10 MG SUPP PR PRN (23:48)
[2019-01-05] MEDS ORDERED: Ondansetron PF 4 MG/2 ML Vial IVP PRN (23:48)
--- NOTE | 2019-01-06 00:27 | HP ---
PRIMARY CARE PROVIDER: ANIKA Rebolledo CHIEF COMPLAINT: Leg pain. HISTORY OF PRESENT ILLNESS: Mr. Johnson is a pleasant 88-year-old gentleman, who was seen at [facility] on January 05, 2019. He was hospitalized at this facility from December 19 to January 02 of this year for severe ischemia of right lower extremity, severe peripheral artery disease, severe right leg pain, and rhabdomyolysis. During that hospitalization, he was seen by Cardiovascular Surgery and Cardiology services. He was recommended amputation for limb ischemia. However, the patient wanted to try conservative management and was discharged to [facility]. The patient reports that pain has been getting worse since discharge. Describes it as dull, in the right foot, aching and cramping kind of sensation, 8/10 at its worst, worse with touching and movement, improving with rest. He is unable to bear weight. He decided that he wants surgical intervention and came to the emergency room. REVIEW OF SYSTEMS: All other systems reviewed and found to be negative. PAST MEDICAL HISTORY: Coronary artery disease, hypertension, peptic ulcer disease, atrial fibrillation. PAST SURGICAL HISTORY: Coronary artery bypass graft and hip surgery. ALLERGIES: NO KNOWN DRUG ALLERGIES. CURRENT MEDICATIONS: As dictated in discharge summary dated January 02, [address] Contreras. SOCIAL HISTORY: The patient denies tobacco use, alcohol use, or recreational drug use. FAMILY HISTORY: No family history of premature coronary artery disease. CODE STATUS: I discussed his code status. He is full code. PHYSICAL EXAMINATION: GENERAL: On examination, Mr. Johnson is awake and alert, not in acute distress. VITAL SIGNS: Blood pressure is 106/71, pulse 74, respiratory rate 20, and oxygen saturation 96% on room air. He is afebrile. EYES: No scleral icterus, no conjunctival pallor. ENT: Moist mucosal membranes. No oropharyngeal erythema or exudates. NECK: Supple, nontender, trachea is midline. RESPIRATORY: Accessory muscles of breathing are not active. Chest wall movements are symmetric bilaterally. Lungs are clear to auscultation without wheeze, rhonchi, or crepitations. CARDIOVASCULAR: S1 and S2 are heard, regular. Could not palpate dorsalis pedis on the right foot secondary to pain. Weak dorsalis pedis on the left foot. NEUROLOGIC: Cranial nerves 2 through 12 are intact. MUSCULOSKELETAL: The patient is able to move all four extremities. SKIN: Right foot is dark red, tender. LYMPHATIC: No cervical lymphadenopathy. PSYCHIATRIC: Normal mood, normal affect, the patient is oriented to person, place, and time. LABORATORY DATA: Mr. Johnson's labs and investigations were reviewed. Electrocardiogram shows atrial fibrillation, no ST changes to suggest an acute coronary syndrome. X-ray of the right foot showed likely avascular necrosis of the talar neck. X-ray of the right ankle did not show any definite evidence of osteomyelitis. He has leukocytosis with 14,400 white cells, of which 88.7% are neutrophils. He has macrocytic anemia with hemoglobin 11.3, normal platelet count, INR 1.2, normal sodium, decreased potassium of 2.8, normal creatinine, elevated lactic acid level of 2.6, elevated AST of 111, elevated ALT of 131, elevated alkaline phosphatase of 217, alkaline phosphatase was 350 on December 31, 2018, elevated CK level of 1204, it was 2134 on January 02, 2019, indeterminate troponin-I of 0.088, and decreased albumin of 2.5. Urinalysis is negative for nitrite and leukocyte esterase. ASSESSMENT AND PLAN: Mr. Jhonson is a pleasant 88-year-old gentleman, who was seen at [facility] on January 05, 2019. His problem list includes: 1. Right lower extremity ischemia: Mr. Johnson is presenting with right lower extremity ischemia. He was recently hospitalized for the same, but did not wish to have surgery. Now he is presenting because he has changed his mind and would like to pursue surgical options. The patient will be admitted to the hospital. We will consult Cardiovascular Surgery for opinion and help with management, since they saw him during the last hospitalization. 2. Rhabdomyolysis: His CK level is improving. We will continue IV fluids and recheck CK level. 3. Hypokalemia: We will replace potassium and recheck. 4. Dyslipidemia: We will continue statin. 5. Atrial fibrillation: We will continue amiodarone. 6. Benign prostatic hypertrophy: Probable, we will continue Proscar and Flomax. Many thanks for allowing me to participate in your patient's care. Please feel free to contact me with any questions or concerns. Please note that the patient has received vancomycin and Zosyn in the emergency room, which I will continue, since he meets the criteria for sepsis with a respiratory rate of 22 when he presented to the emergency room as well as leukocytosis and suspected source of infection in the right foot. LEVEL OF RISK: Moderate. LEVEL OF COMPLEXITY: Moderate. Job ID: [id number]
[2019-01-06 01:25] LABS: Lactic Acid 1.7 mmol/L (0.5-2.2)
[2019-01-06] MEDS: NS 0.9% w/ 40 MEQ KCL 1,000 ML IV SCH ×2 (01:25→13:32)
[2019-01-06 01:33] LABS: Troponin I 0.077 ng/mL (< 0.028)
[2019-01-06 02:42] LABS: #Eosinphils 0.1 thou/uL (0.0-0.7); #Lymphocytes 0.5 thou/uL (1.20-3.40); #Monocytes 0.7 thou/uL (0.11-0.59); #Neutrophils 9.7 thou/uL (1.40-6.50); %Lymphocytes 4.3 % (21.0-51.0); %Monocytes 6.3 % (0.0-10.0); %Neutrophils 88.4 % (42.0-75.0); Mean Corpuscular HGB CONC 32.4 g/dL (32.0-36.0); Mean Corpuscular Hemoglobin 32.5 pg (27.0-31.0); Mean Platelet Volume 6.1 fL (7.4-10.4); Platelet Count 228 thou/uL (130-400); RBC Distribution Width 13.1 % (11.5-14.5); Red Blood Cell (RBC) Count 2.77 mill/uL (4.70-6.10)
[2019-01-06 03:07] LABS: Troponin I 0.074 ng/mL (< 0.028)
[2019-01-06] MEDS: Piperacillin/Tazobactam 4.5 GM in Sodium Chloride 0.9% 100 ML IVPB SCH ×3 (05:32→22:32)
--- NOTE | 2019-01-06 07:44 | PDOC.PN ---
- Subjective Encounter Start Date: 01/06/19 Encounter Start Time: 13:10 Subjective: Patient with continued pain in right foot and heel. No fever. No N/ V. No -: weakness. BP running low all day but asymptomatic, in the 90s systolic -: currently. - Objective Resuscitation Status - Order Detail: 01/05/19 23:48 Resuscitation Status Routine Resuscitation Status: FULL: Full Resuscitation Discussed with: patient MAR Reviewed: Yes Vital Signs & Weight: Vital Signs (12 hours) Temp Pulse Resp BP Pulse Ox 01/06/19 04:13 97.3 F L 71 17 94/52 L 98 01/06/19 02:16 68 16 87/51 L 99 01/06/19 01:15 71 88/53 L 01/06/19 00:31 98 01/06/19 00:15 98.4 F 70 19 103/56 L 96 Weight Weight 167 lb Result Diagrams: 01/06/19 02:34 01/06/19 08:50 Phys Exam - Physical Examination Constitutional: NAD HEENT: moist MMs poor of hearing Respiratory: no wheezing, no rales, no rhonchi Cardiovascular: RRR, no significant murmur Gastrointestinal: soft, non-tender, positive bowel sounds right foot pulseless, black/blue toes and forefoot, purple color extending to ankle Neurological: non-focal, moves all 4 limbs Psychiatric: normal affect, A&O x 3 Dx/Plan (1) Ischemia of right lower extremity Code(s): I99.8 - OTHER DISORDER OF CIRCULATORY SYSTEM Status: Acute Comment : Severe. Vasc Surgery consult for amputation (2) Sepsis Code(s): A41.9 - SEPSIS, UNSPECIFIED ORGANISM Status: Acute Comment: with low BP, lactic acidosis resolved with fluids and BP in 90s now, on Vanc and Zosyn since 01/05/19 (3) Rhabdomyolysis Code(s): M62.82 - RHABDOMYOLYSIS Status: Acute Comment: giving IV fluids, will monitor creatinine (4) Hypokalemia Code(s): E87.6 - HYPOKALEMIA Status: Acute Comment: repleting, recheck lab pending this AM (5) Paroxysmal atrial fibrillation Code(s): I48.0 - PAROXYSMAL ATRIAL FIBRILLATION Status: Chronic Comment: Currently not on anticoagulation. Continue Amiodarone. (6) Dyslipidemia Code(s): E78.5 - HYPERLIPIDEMIA, UNSPECIFIED Status: Chronic (7) BPH (benign prostatic hyperplasia) Code(s): N40.0 - BENIGN PROSTATIC HYPERPLASIA WITHOUT LOWER URINRY TRACT SYMP Status: Chronic - Plan cont current plan of care, continue antibiotics, PT/OT, DVT proph w/lovenox * . - Discharge Day Encounter end time: 13:20
[2019-01-06] MEDS ORDERED: Bisacodyl 5 MG TAB PO PRN (07:47)
[2019-01-06] MEDS ORDERED: Benzonatate 100 MG CAP PO PRN (07:47)
[2019-01-06] MEDS ORDERED: Senokot S 8.6-50 MG TAB PO PRN (07:47)
[2019-01-06] MEDS ORDERED: traMADol HCl 50 MG TAB PO PRN (07:47)
[2019-01-06] MEDS ORDERED: Prevnar 13-Val Conj/PF 0.5 ML SYRINGE IM ONE (09:00)
[2019-01-06 09:24] LABS: Albumin 2.1 g/dL (3.4-4.8)
[2019-01-06 09:25] LABS: Chloride 107 mmol/L (98-107); Potassium 3.6 mmol/L (3.5-5.1); Sodium 139 mmol/L (136-145)
[2019-01-06 09:26] LABS: Calcium 7.5 mg/dL (7.8-10.44)
[2019-01-06 09:27] LABS: Globulin 2.6 g/dL (2.4-3.5); Glucose 96 mg/dL (83-110); Protein, Total 4.7 g/dL (5.8-8.1)
[2019-01-06 09:28] LABS: Anion Gap 10 mmol/L (10-20); Carbon Dioxide 26 mmol/L (23-31)
[2019-01-06 09:29] LABS: Alkaline Phosphatase 158 U/L (40-150); Bilirubin, Total 0.7 mg/dL (0.2-1.2)
[2019-01-06 09:30] LABS: Calc. Creatinine Clearance 71 mL/min (70-130); Estimated GFR-MDRD Greater than 90
[2019-01-06 09:31] LABS: BUN (Urea Nitrogen) 16 mg/dL (8.4-25.7)
[2019-01-06 09:32] LABS: AST (SGOT) 83 U/L (5-34)
[2019-01-06 09:33] LABS: ALT (SGPT) 102 U/L (8-55); CK (CPK) 981 U/L (30-200)
[2019-01-06] MEDS: Rosuvastatin 20 MG TAB PO SCH (09:34)
[2019-01-06] MEDS: Aspirin 81 mg Enteric Coated Tablet PO SCH (09:34)
[2019-01-06] MEDS: Amiodarone 200 MG TAB PO SCH (09:34)
[2019-01-06] MEDS: guaiFENesin ER 600 MG TAB PO SCH ×2 (09:34→20:46)
[2019-01-06] MEDS: Finasteride 5 MG TAB PO SCH (09:34)
[2019-01-06] MEDS: Pantoprazole 40 MG GRANULES PACKET PO SCH (09:44)
[2019-01-06] MEDS: Enoxaparin Sodium 40 MG/0.4 ML SYRINGE SC SCH (09:44)
[2019-01-06] MEDS: Vancomycin HCl 750 MG in Sodium Chloride 0.9% 250 ML 250 ML IVPB SCH ×2 (13:21→23:48)
[2019-01-06] MEDS: Sodium Chloride 0.9% 1,000 ML IV SCH (14:57)
[2019-01-06] MEDS: Tamsulosin HCl 0.4 MG CAP PO SCH (20:46)
[2019-01-06] MEDS: Acetaminophen 325 MG TAB PO PRN (20:51)
--- NOTE | 2019-01-06 22:59 | CON ---
DATE OF CONSULTATION: 01/06/2019 HISTORY OF PRESENT ILLNESS: Mr. Johnson is an 88-year-old gentleman with known non-reconstructible peripheral vascular disease and chronic ischemia of his right lower extremity below the knee. We have offered him above-knee amputation in the past and he has declined, but he has been readmitted with pain and is now requesting amputation. PAST MEDICAL HISTORY: 1. Peripheral vascular disease. 2. Coronary artery disease status post coronary artery bypass grafting in 2012. 3. Hypertension. 4. Peptic ulcer disease. 5. History of atrial fibrillation. 6. Dementia. 7. Severely hard of hearing. PAST SURGICAL HISTORY: 1. Coronary artery bypass grafting. 2. Hip surgery. ALLERGIES: NONE. CURRENT MEDICATIONS: Noted. SOCIAL HISTORY: He wants to return to living at home, but he is currently in the [facility]. PHYSICAL EXAMINATION: GENERAL: This is an elderly, almost cachectic gentleman, in obvious pain with his right leg. HEART: Rhythm is regular. Pulse is 79, blood pressure is 91/59. LUNGS: Clear bilaterally. ABDOMEN: Soft and nontender. EXTREMITIES: He has begun to have gangrene that is dry of the right lower extremity below the knee. He has no palpable pulses below the femoral on the right side. ASSESSMENT/PLAN: Non-reconstructible peripheral vascular disease on the right. I have discussed above-knee amputation, he is agreeable to proceed tomorrow. Job ID: [id number]
[2019-01-07] MEDS: Sodium Chloride 0.9% 1,000 ML IV SCH ×2 (02:38→21:04)
[2019-01-07] MEDS: Piperacillin/Tazobactam 4.5 GM in Sodium Chloride 0.9% 100 ML IVPB SCH ×3 (05:42→16:08)
--- NOTE | 2019-01-07 07:46 | PDOC.PN ---
- Subjective Encounter Start Date: 01/07/19 Encounter Start Time: 15:30 Subjective: Came by to see patient this AM and this afternoon, down for -: surgery all day. - Objective Resuscitation Status - Order Detail: 01/05/19 23:48 Resuscitation Status Routine Resuscitation Status: FULL: Full Resuscitation Discussed with: iggy DENNIS Reviewed: Yes Vital Signs & Weight: Vital Signs (12 hours) Temp Pulse Resp BP Pulse Ox 01/07/19 03:39 98.6 F 79 22 H 96/52 L 98 01/07/19 00:05 99.2 F 73 18 90/53 L 01/06/19 19:47 99 01/06/19 19:45 99.4 F 83 18 99/67 99 Weight Weight 167 lb I&O: 01/06/19 01/07/19 01/08/19 06:59 06:59 06:59 Intake Total 2750 Output Total 350 Balance 2400 Result Diagrams: 01/06/19 02:34 01/06/19 08:50 Dx/Plan (1) Ischemia of right lower extremity Code(s): I99.8 - OTHER DISORDER OF CIRCULATORY SYSTEM Status: Acute Comment : Severe. Dr. Jama to perform right AKA today (2) Sepsis Code(s): A41.9 - SEPSIS, UNSPECIFIED ORGANISM Status: Acute Comment: with low BP, lactic acidosis resolved with fluids and BP in 90s now, on Vanc and Zosyn since 01/05/19 (3) Rhabdomyolysis Code(s): M62.82 - RHABDOMYOLYSIS Status: Acute Comment: resolving with IV fluids (4) Hypokalemia Code(s): E87.6 - HYPOKALEMIA Status: Resolved Comment: repleting, recheck lab pending this AM (5) Paroxysmal atrial fibrillation Code(s): I48.0 - PAROXYSMAL ATRIAL FIBRILLATION Status: Chronic Comment: Currently not on anticoagulation. Continue Amiodarone. (6) Dyslipidemia Code(s): E78.5 - HYPERLIPIDEMIA, UNSPECIFIED Status: Chronic (7) BPH (benign prostatic hyperplasia) Code(s): N40.0 - BENIGN PROSTATIC HYPERPLASIA WITHOUT LOWER URINRY TRACT SYMP Status: Chronic - Plan cont current plan of care, continue antibiotics, PT/OT, DVT proph w/lovenox * . - Discharge Day Encounter end time: 15:40
[2019-01-07] MEDS ORDERED: Fentanyl 100 MCG/2 ML VIAL ONE (10:44)
[2019-01-07] MEDS: Aspirin 81 mg Enteric Coated Tablet PO SCH (11:33)
[2019-01-07] MEDS: Amiodarone 200 MG TAB PO SCH (11:33)
[2019-01-07] MEDS: Enoxaparin Sodium 40 MG/0.4 ML SYRINGE SC SCH (11:34)
[2019-01-07] MEDS: guaiFENesin ER 600 MG TAB PO SCH ×2 (11:34→20:56)
[2019-01-07] MEDS: Finasteride 5 MG TAB PO SCH (11:34)
[2019-01-07] MEDS: Rosuvastatin 20 MG TAB PO SCH (11:34)
[2019-01-07] MEDS: Pantoprazole 40 MG GRANULES PACKET PO SCH (11:34)
[2019-01-07] MEDS ORDERED: Promethazine HCl 25 MG/ML VIAL SLOW IVP PRN (12:09)
[2019-01-07] MEDS ORDERED: Ondansetron HCl/PF 4 MG/2 ML Vial IVP PRN (12:09)
[2019-01-07] MEDS ORDERED: Promethazine HCl 25 MG/ML VIAL IM PRN (12:09)
--- NOTE | 2019-01-07 13:27 | RAD ---
Exam: Chest one view HISTORY:Shortness of breath Comparison: 12/19/2018 FINDINGS: Cardiac silhouette:Secured by bibasilar pleural and parenchymal changes. Nevertheless, there appears to be cardiomegaly and atherosclerosis of the aorta Pulmonary vessels: Normal Costophrenic angles: Bilateral pleural effusions. LUNGS: Parenchymal changes in the lung bases in part due to atelectasis. Pneumothorax: None Osseous abnormalities: None IMPRESSION: 1. Congestive heart failure. 2. Bibasilar pleural and parenchymal changes. 3. Persistently diminished lung volumes. 4. Atherosclerosis.
[2019-01-07] MEDS ORDERED: Furosemide 40 MG/4 ML VIAL ONE (13:38)
[2019-01-07] MEDS: Vancomycin HCl 750 MG in Sodium Chloride 0.9% 250 ML 250 ML IVPB SCH ×2 (15:52→17:49)
[2019-01-07 16:03] LABS: Vancomycin, Trough 11.2 ug/mL
[2019-01-07] MEDS ORDERED: PROPOFOL 200 MG/20 ML VIAL ONE (16:10)
[2019-01-07] MEDS ORDERED: PHENYLEPHRINE-NS 100 MCG/ML 10 ML SYRINGE ONE (16:10)
[2019-01-07] MEDS ORDERED: Lidocaine 1% PF 5 ML VIAL ONE (16:10)
[2019-01-07] MEDS ORDERED: ePHEDrine 50 MG/ML VIAL ONE (16:10)
[2019-01-07] MEDS ORDERED: Rocuronium Bromide 10 MG/ML (10ML VIAL) ONE (16:10)
[2019-01-07] MEDS ORDERED: Glycopyrrolate 0.2 MG/ML 5 ML SYRINGE ONE (16:10)
--- NOTE | 2019-01-07 18:31 | OP ---
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 PROCEDURE PERFORMED: Right above-knee amputation. ANESTHESIA: General endotracheal. ESTIMATED BLOOD LOSS: Minimal. DESCRIPTION OF PROCEDURE: After consent was obtained, the patient was brought to operating room and placed in supine position on the operating room table. Appropriate central line was placed and general endotracheal anesthesia was induced. Right leg was prepped and draped in usual sterile fashion. A fishmouth incision was made just above the patellar tendon. Dissection through the fascia and anterior musculature was obtained with electrocautery. The right superficial femoral artery and popliteal vein were isolated and tied. The femur was divided with a Gigli saw. Amputation was completed with the amputation knife posteriorly. Femoral nerve was clamped, stripped, and tied. The wound was copiously irrigated. Hemostasis was ensured. Fascia was reapproximated with 0 Vicryl suture. The skin was then approximated with clips and a fluff dressing applied. The patient tolerated the procedure well, was transferred to recovery room in stable condition. Job ID: [id number]
[2019-01-07] MEDS: Tamsulosin HCl 0.4 MG CAP PO SCH (20:56)
[2019-01-08] MEDS: Acetaminophen 325 MG TAB PO PRN ×3 (01:07→23:19)
[2019-01-08] MEDS: Vancomycin HCl 750 MG in Sodium Chloride 0.9% 250 ML 250 ML IVPB SCH ×2 (05:13→17:33)
[2019-01-08 05:16] LABS: #Eosinphils 0.2 thou/uL (0.0-0.7); #Lymphocytes 0.6 thou/uL (1.20-3.40); #Monocytes 0.7 thou/uL (0.11-0.59); #Neutrophils 9.9 thou/uL (1.40-6.50); %Eosinophils 1.7 % (0.0-10.0); %Lymphocytes 5.3 % (21.0-51.0); %Monocytes 6.3 % (0.0-10.0); %Neutrophils 86.7 % (42.0-75.0); Hemoglobin 10.1 g/dL (14.0-18.0); Mean Corpuscular HGB CONC 32.6 g/dL (32.0-36.0); Mean Corpuscular Hemoglobin 32.7 pg (27.0-31.0); Mean Platelet Volume 6.1 fL (7.4-10.4); Platelet Count 237 thou/uL (130-400); RBC Distribution Width 13.2 % (11.5-14.5); Red Blood Cell (RBC) Count 3.08 mill/uL (4.70-6.10); White Blood Cell (WBC) Count 11.4 thou/uL (4.8-10.8)
[2019-01-08 05:35] LABS: Anion Gap 8 mmol/L (10-20); BUN (Urea Nitrogen) 10 mg/dL (8.4-25.7); Calc. Creatinine Clearance 75 mL/min (70-130); Calcium 7.5 mg/dL (7.8-10.44); Carbon Dioxide 31 mmol/L (23-31); Chloride 100 mmol/L (98-107); Estimated GFR-MDRD Greater than 90; Glucose 117 mg/dL (83-110); Potassium 3.3 mmol/L (3.5-5.1); Sodium 136 mmol/L (136-145)
[2019-01-08] MEDS: Piperacillin/Tazobactam 4.5 GM in Sodium Chloride 0.9% 100 ML IVPB SCH ×4 (08:06→23:07)
[2019-01-08] MEDS: Aspirin 81 mg Enteric Coated Tablet PO SCH (08:12)
[2019-01-08] MEDS: Amiodarone 200 MG TAB PO SCH (08:12)
[2019-01-08] MEDS: Finasteride 5 MG TAB PO SCH (08:12)
[2019-01-08] MEDS: Pantoprazole 40 MG GRANULES PACKET PO SCH (08:12)
[2019-01-08] MEDS: guaiFENesin ER 600 MG TAB PO SCH ×2 (08:12→20:18)
--- NOTE | 2019-01-08 08:12 | PDOC.PN ---
- Subjective Encounter Start Date: 01/08/19 Encounter Start Time: 10:30 Subjective: Patient with some severe pain with bandage change earlier. No -: complaints since. Has tolerated norco in the past for pain. Converted to -: afib after surgery yesterday, but rate controlled. BP low normal but asympt - Objective Resuscitation Status - Order Detail: 01/05/19 23:48 Resuscitation Status Routine Resuscitation Status: FULL: Full Resuscitation Discussed with: patient MAR Reviewed: Yes Vital Signs & Weight: Vital Signs (12 hours) Temp Pulse Resp BP Pulse Ox 01/08/19 07:59 99.4 F 71 20 103/57 L 100 01/08/19 03:24 98.3 F 75 18 114/56 L 98 01/08/19 00:09 99.1 F 83 18 94/63 96 Weight Weight 167 lb I&O: 01/07/19 01/08/19 01/09/19 06:59 06:59 06:59 Intake Total 2750 2621 Output Total 350 600 Balance 2400 2020 Result Diagrams: 01/08/19 04:52 01/08/19 04:52 Phys Exam - Physical Examination Constitutional: NAD HEENT: moist MMs Respiratory: no wheezing, no rales, no rhonchi Cardiovascular: no significant murmur, irregular Gastrointestinal: soft, positive bowel sounds Neurological: non-focal right AKA stump with dressing c/d/i Psychiatric: normal affect Deviation from normal: very hard of hearing Dx/Plan (1) Ischemia of right lower extremity Code(s): I99.8 - OTHER DISORDER OF CIRCULATORY SYSTEM Status: Acute Comment : Severe. S/P right AKA on 01/07/[address] Jama (2) Sepsis Code(s): A41.9 - SEPSIS, UNSPECIFIED ORGANISM Status: Resolved Comment: with low BP, lactic acidosis resolved with fluids and BP in 90s now, on Vanc and Zosyn since 01/05/19 (3) Rhabdomyolysis Code(s): M62.82 - RHABDOMYOLYSIS Status: Acute Comment: resolving with IV fluids (4) Hypokalemia Code(s): E87.6 - HYPOKALEMIA Status: Acute Comment: repleting (5) Paroxysmal atrial fibrillation Code(s): I48.0 - PAROXYSMAL ATRIAL FIBRILLATION Status: Chronic Comment: Currently not on anticoagulation due to history of GI bleed. Continue Amiodarone. Went into Afib after surgery, rate controlled. No further intervention at this time. (6) Dyslipidemia Code(s): E78.5 - HYPERLIPIDEMIA, UNSPECIFIED Status: Chronic (7) BPH (benign prostatic hyperplasia) Code(s): N40.0 - BENIGN PROSTATIC HYPERPLASIA WITHOUT LOWER URINRY TRACT SYMP Status: Chronic - Plan cont current plan of care, continue antibiotics, PT/OT, DVT proph w/lovenox can consider d/c antibiotics in next 1-2 days now that ischemic limb -: gone, needs PT and rehab eval * . - Discharge Day Encounter end time: 10:40
[2019-01-08] MEDS: Enoxaparin Sodium 40 MG/0.4 ML SYRINGE SC SCH (08:13)
[2019-01-08] MEDS: Rosuvastatin 20 MG TAB PO SCH (08:13)
[2019-01-08] MEDS ORDERED: Potassium Chloride 20 MEQ TAB PO SCH (08:15)
[2019-01-08] MEDS: Sodium Chloride 0.9% 1,000 ML IV SCH (11:26)
[2019-01-08] MEDS: HYDROcodone/Acetaminophen 5/325 mg Tablet PO PRN (17:50)
[2019-01-08] MEDS: Tamsulosin HCl 0.4 MG CAP PO SCH (20:18)
[2019-01-09] MEDS: Sodium Chloride 0.9% 1,000 ML IV SCH (02:34)
[2019-01-09 05:04] LABS: #Eosinphils 0.2 thou/uL (0.0-0.7); #Lymphocytes 0.5 thou/uL (1.20-3.40); #Monocytes 0.6 thou/uL (0.11-0.59); %Basophils 0.1 % (0.0-1.0); %Eosinophils 1.8 % (0.0-10.0); %Lymphocytes 5.2 % (21.0-51.0); %Monocytes 6.1 % (0.0-10.0); %Neutrophils 86.8 % (42.0-75.0); Hemoglobin 10.1 g/dL (14.0-18.0); Mean Corpuscular Hemoglobin 31.4 pg (27.0-31.0); Mean Platelet Volume 6.2 fL (7.4-10.4); Platelet Count 222 thou/uL (130-400); RBC Distribution Width 13.2 % (11.5-14.5); Red Blood Cell (RBC) Count 3.21 mill/uL (4.70-6.10); White Blood Cell (WBC) Count 10.3 thou/uL (4.8-10.8)
[2019-01-09 05:25] LABS: Anion Gap 8 mmol/L (10-20); BUN (Urea Nitrogen) 7 mg/dL (8.4-25.7); Calc. Creatinine Clearance 93 mL/min (70-130); Calcium 7.4 mg/dL (7.8-10.44); Carbon Dioxide 26 mmol/L (23-31); Chloride 103 mmol/L (98-107); Estimated GFR-MDRD Greater than 90; Glucose 93 mg/dL (83-110); Potassium 3.3 mmol/L (3.5-5.1); Sodium 134 mmol/L (136-145)
[2019-01-09] MEDS: Vancomycin HCl 750 MG in Sodium Chloride 0.9% 250 ML 250 ML IVPB SCH ×2 (05:40→16:19)
[2019-01-09] MEDS: Finasteride 5 MG TAB PO SCH (09:10)
[2019-01-09] MEDS: guaiFENesin ER 600 MG TAB PO SCH ×2 (09:10→20:02)
[2019-01-09] MEDS: Rosuvastatin 20 MG TAB PO SCH (09:10)
[2019-01-09] MEDS: Aspirin 81 mg Enteric Coated Tablet PO SCH (09:11)
[2019-01-09] MEDS: Pantoprazole 40 MG GRANULES PACKET PO SCH (09:11)
[2019-01-09] MEDS: Amiodarone 200 MG TAB PO SCH (09:11)
[2019-01-09] MEDS: Enoxaparin Sodium 40 MG/0.4 ML SYRINGE SC SCH (09:11)
[2019-01-09] MEDS: Piperacillin/Tazobactam 4.5 GM in Sodium Chloride 0.9% 100 ML IVPB SCH ×3 (09:12→23:12)
[2019-01-09] MEDS ORDERED: Albumin 25% 25 GM/100 ML BOT IVPB SCH (09:46)
[2019-01-09] MEDS ORDERED: Furosemide 20 MG/2 ML VIAL SLOW IVP SCH (10:00)
[2019-01-09] MEDS: Acetaminophen 325 MG TAB PO PRN (10:04)
[2019-01-09 10:15] LABS: ALT (SGPT) 58 U/L (8-55); AST (SGOT) 44 U/L (5-34); Albumin 2.1 g/dL (3.4-4.8); Alkaline Phosphatase 125 U/L (40-150); Bilirubin, Direct 0.2 mg/dL (0.1-0.3); Bilirubin, Total 0.5 mg/dL (0.2-1.2); Protein, Total 4.7 g/dL (5.8-8.1)
[2019-01-09] MEDS: HYDROcodone/Acetaminophen 5/325 mg Tablet PO PRN ×2 (11:31→20:06)
[2019-01-09 16:27] LABS: Vancomycin, Trough 17.2 ug/mL
[2019-01-09] MEDS: Tamsulosin HCl 0.4 MG CAP PO SCH (20:02)
--- NOTE | 2019-01-09 22:10 | PDOC.PN ---
- Subjective Encounter Start Date: 01/09/19 Encounter Start Time: 10:30 Subjective: pt up in bed complains of mild sob - Objective Resuscitation Status - Order Detail: 01/05/19 23:48 Resuscitation Status Routine Resuscitation Status: FULL: Full Resuscitation Discussed with: patient Vital Signs & Weight: Vital Signs (12 hours) Temp Pulse Pulse Pulse Resp BP BP 01/09/19 16:00 98.5 F 78 16 01/09/19 13:12 80 85 112/57 L 103/58 L 01/09/19 12:00 98.0 F 80 18 BP Pulse Ox 01/09/19 16:00 108/61 98 01/09/19 13:12 01/09/19 12:00 112/57 L 99 Weight Admit Weight 167 lb Weight 167 lb I&O: 01/08/19 01/09/19 01/10/19 06:59 06:59 06:59 Intake Total 2621 2941 1130 Output Total 600 1095 475 Balance 2020 1206 655 Result Diagrams: 01/09/19 04:48 01/09/19 04:47 Phys Exam - Physical Examination decrease breath sound to right lower lung area Cardiovascular: RRR, no significant murmur, no rub, gallop, irregular Gastrointestinal: soft, non-tender, no distention, positive bowel sounds right aka Dx/Plan (1) Ischemia of right lower extremity Code(s): I99.8 - OTHER DISORDER OF CIRCULATORY SYSTEM Status: Acute Comment : Severe. S/P right AKA on 01/07/[address] Jama (2) Hypokalemia Code(s): E87.6 - HYPOKALEMIA Status: Acute Comment: repleting (3) Abnormal LFTs Code(s): R94.5 - ABNORMAL RESULTS OF LIVER FUNCTION STUDIES Status: Acute Comment: isolated transaminitis secondary to rhabdomyolysis (4) Paroxysmal atrial fibrillation with rapid ventricular response Code(s): I48.0 - PAROXYSMAL ATRIAL FIBRILLATION Status: Acute Comment: Currently in sinus. Not on anticoagulation. ? reason . ? Increased fall risk (5) Rhabdomyolysis Code(s): M62.82 - RHABDOMYOLYSIS Status: Acute Comment: resolving with IV fluids (6) HTN (hypertension) Code(s): I10 - ESSENTIAL (PRIMARY) HYPERTENSION Status: Chronic - Plan will stop vancomycin pt is s/p aka -: will stop fluids and check ck in am since pt -: is getting volume overload. cxr indicated right effusion -: will give lasix x1 now. will order IS -: spoke with pt's son about code status wants full code for now * . Review of Systems - Review of Systems Respiratory: negative: Cough, Dry, Shortness of Breath, Hemoptysis, SOB with Excertion, Pleuritic Pain, Sputum, Wheezing Cardiovascular: negative: chest pain, palpitations, orthopnea, paroxysmal nocturnal dyspnea, edema, light headedness, other Gastrointestinal: negative: Nausea, Vomiting, Abdominal Pain, Diarrhea, Constipation, Melena, Hematochezia, Other - Medications/Allergies Allergies/Adverse Reactions: Allergies Allergy/AdvReac Type Severity Reaction Status Date / Time No Known Allergies Allergy Verified 12/05/18 17:17 Medications: Current Medications Acetaminophen (Tylenol) 650 mg PO Q4H PRN PRN Reason: Headache/Fever/Mild Pain (1-3) Last Admin: 01/09/19 10:04 Dose: 650 mg Hydrocodone Bitart/Acetaminophen ([place] 5/325) 1 tab PO Q4H PRN PRN Reason: Moderate Pain (4-6) Last Admin: 01/09/19 20:06 Dose: 1 tab Hydrocodone Bitart/Acetaminophen ([place] 5/325) 2 tab PO Q4H PRN PRN Reason: Severe Pain (7-10) Last Admin: 01/08/19 17:50 Dose: 2 tab Albuterol/Ipratropium (Duoneb) 3 ml NEB Q4H PRN PRN Reason: Dyspnea/Wheezing/SOB Amiodarone HCl (Cordarone) 200 mg PO DAILY [facility] Last Admin: 01/09/19 09:11 Dose: 200 mg Aspirin (Ecotrin) 81 mg PO DAILY [facility] Last Admin: 01/09/19 09:11 Dose: 81 mg Benzonatate (Tessalon) 200 mg PO TID PRN PRN Reason: Cough Bisacodyl (Dulcolax) 10 mg [place] DAILYPRN PRN PRN Reason: Constipation Bisacodyl (Dulcolax) 10 mg PO DAILYPRN PRN PRN Reason: Constipation Enoxaparin Sodium (Lovenox) 40 mg SC 0900 [facility] Last Admin: 01/09/19 09:11 Dose: 40 mg Finasteride (Proscar) 5 mg PO DAILY [facility] Last Admin: 01/09/19 09:10 Dose: 5 mg Furosemide (Lasix) 20 mg SLOW IVP DAILY [facility] Guaifenesin (Mucinex) 600 mg PO Q12HR [facility] Last Admin: 01/09/19 20:02 Dose: 600 mg Piperacillin Sod/Tazobactam (Sod 4.5 gm/ Sodium Chloride) 100 mls @ 200 mls/hr IVPB 0800,1600,2359 [facility] Last Admin: 01/09/19 16:19 Dose: 100 mls Miscellaneous Medication (Pharmacy To Dose) 1 each IVPB PRN PRN PRN Reason: Pharmacy to dose Ondansetron HCl (Zofran) 4 mg IVP Q6H PRN PRN Reason: Nausea/Vomiting Pantoprazole Sodium (Protonix) 40 mg PO DAILY [facility] Last Admin: 01/09/19 09:11 Dose: 40 mg Rosuvastatin Calcium (Crestor) 40 mg PO DAILY [facility] Last Admin: 01/09/19 09:10 Dose: 40 mg Senna/Docusate Sodium (Senokot S) 2 tab PO BID PRN PRN Reason: Constipation Sodium Chloride (Flush - Normal Saline) 10 ml IVF Q12HR [facility] Last Admin: 01/09/19 20:02 Dose: Not Given Sodium Chloride (Flush - Normal Saline) 10 ml IVF PRN PRN PRN Reason: Saline Flush Tamsulosin HCl (Flomax) 0.4 mg PO HS [facility] Last Admin: 01/09/19 20:02 Dose: 0.4 mg
[2019-01-10] MEDS: HYDROcodone/Acetaminophen 5/325 mg Tablet PO PRN (04:17)
[2019-01-10 06:29] LABS: #Eosinphils 0.2 thou/uL (0.0-0.7); #Lymphocytes 0.6 thou/uL (1.20-3.40); #Monocytes 0.6 thou/uL (0.11-0.59); #Neutrophils 9.5 thou/uL (1.40-6.50); %Basophils 0.3 % (0.0-1.0); %Eosinophils 1.4 % (0.0-10.0); %Lymphocytes 5.2 % (21.0-51.0); %Monocytes 5.5 % (0.0-10.0); %Neutrophils 87.6 % (42.0-75.0); Hemoglobin 10.2 g/dL (14.0-18.0); Mean Corpuscular HGB CONC 31.7 g/dL (32.0-36.0); Mean Corpuscular Hemoglobin 31.9 pg (27.0-31.0); Mean Platelet Volume 6.5 fL (7.4-10.4); Platelet Count 239 thou/uL (130-400); RBC Distribution Width 13.1 % (11.5-14.5); White Blood Cell (WBC) Count 10.9 thou/uL (4.8-10.8)
[2019-01-10 07:01] LABS: ALT (SGPT) 52 U/L (8-55); AST (SGOT) 40 U/L (5-34); Alkaline Phosphatase 118 U/L (40-150); Anion Gap 9 mmol/L (10-20); BUN (Urea Nitrogen) 7 mg/dL (8.4-25.7); Bilirubin, Total 0.4 mg/dL (0.2-1.2); CK (CPK) 80 U/L (30-200); Calc. Creatinine Clearance 91 mL/min (70-130); Calcium 7.7 mg/dL (7.8-10.44); Carbon Dioxide 30 mmol/L (23-31); Chloride 99 mmol/L (98-107); Estimated GFR-MDRD Greater than 90; Glucose 96 mg/dL (83-110); Magnesium 2.1 mg/dL (1.6-2.6); Potassium 3.4 mmol/L (3.5-5.1); Sodium 135 mmol/L (136-145)
[2019-01-10] MEDS: Enoxaparin Sodium 40 MG/0.4 ML SYRINGE SC SCH (08:22)
[2019-01-10] MEDS: Amiodarone 200 MG TAB PO SCH (08:22)
[2019-01-10] MEDS: Aspirin 81 mg Enteric Coated Tablet PO SCH (08:22)
[2019-01-10] MEDS: Piperacillin/Tazobactam 4.5 GM in Sodium Chloride 0.9% 100 ML IVPB SCH (08:22)
[2019-01-10] MEDS: Pantoprazole 40 MG GRANULES PACKET PO SCH (08:23)
[2019-01-10] MEDS: Rosuvastatin 20 MG TAB PO SCH (08:23)
[2019-01-10] MEDS: Finasteride 5 MG TAB PO SCH (08:23)
[2019-01-10] MEDS: guaiFENesin ER 600 MG TAB PO SCH ×2 (08:23→21:43)
[2019-01-10] MEDS: Furosemide 20 MG/2 ML VIAL SLOW IVP SCH (08:23)
[2019-01-10] MEDS ORDERED: Potassium Chloride 20 MEQ TAB PO SCH (09:00)
--- NOTE | 2019-01-10 14:39 | PDOC.PN ---
- Subjective Encounter Start Date: 01/10/19 Encounter Start Time: 09:30 Subjective: pt up in bed no complains - Objective Resuscitation Status - Order Detail: 01/05/19 23:48 Resuscitation Status Routine Resuscitation Status: FULL: Full Resuscitation Discussed with: patient Vital Signs & Weight: Vital Signs (12 hours) Temp Pulse Pulse Pulse Resp BP BP 01/10/19 11:18 97.7 F 80 16 01/10/19 09:18 66 85 104/60 106/53 L 01/10/19 08:14 97.5 F L 99 18 01/10/19 05:33 01/10/19 04:01 98.2 F 60 18 BP Pulse Ox 01/10/19 11:18 113/55 L 99 01/10/19 09:18 01/10/19 08:14 123/69 98 01/10/19 05:33 95 01/10/19 04:01 103/66 95 Weight Admit Weight 167 lb Weight 167 lb I&O: 01/09/19 01/10/19 01/11/19 06:59 06:59 06:59 Intake Total 2941 1530 Output Total 1095 750 Balance 1846 780 Result Diagrams: 01/10/19 05:24 01/10/19 05:24 Phys Exam - Physical Examination decrease breath sounds to bilateral lower lungs Cardiovascular: irregular Gastrointestinal: soft, non-tender, no distention, positive bowel sounds Musculoskeletal: edema present to right AKA Deviation from normal: pt has a lesion behind his left ear Dx/Plan (1) Ischemia of right lower extremity Code(s): I99.8 - OTHER DISORDER OF CIRCULATORY SYSTEM Status: Acute Comment : Severe. S/P right AKA on 01/07/[address] Jama (2) Hypokalemia Code(s): E87.6 - HYPOKALEMIA Status: Acute Comment: repleting (3) Abnormal LFTs Code(s): R94.5 - ABNORMAL RESULTS OF LIVER FUNCTION STUDIES Status: Acute Comment: isolated transaminitis secondary to rhabdomyolysis (4) Paroxysmal atrial fibrillation with rapid ventricular response Code(s): I48.0 - PAROXYSMAL ATRIAL FIBRILLATION Status: Acute Comment: Currently in sinus. Not on anticoagulation. ? reason . ? Increased fall risk (5) Rhabdomyolysis Code(s): M62.82 - RHABDOMYOLYSIS Status: Acute Comment: resolving with IV fluids (6) HTN (hypertension) Code(s): I10 - ESSENTIAL (PRIMARY) HYPERTENSION Status: Chronic (7) Skin abnormalities Code(s): L98.9 - DISORDER OF THE SKIN AND SUBCUTANEOUS TISSUE, UNSPECIFIED Status: Acute - Plan ck normal, will change lasix to bid, PT has been ordered -: pt is chronic afib will need AC when ok with surgery -: bp low stable. -: abx discontinued. He does have a lesion behind his left ear, explained to -: pt and son not urgent to be addressed since he has multiple issues currentl * . Review of Systems - Review of Systems Respiratory: negative: Cough, Dry, Shortness of Breath, Hemoptysis, SOB with Excertion, Pleuritic Pain, Sputum, Wheezing Cardiovascular: negative: chest pain, palpitations, orthopnea, paroxysmal nocturnal dyspnea, edema, light headedness, other Gastrointestinal: negative: Nausea, Vomiting, Abdominal Pain, Diarrhea, Constipation, Melena, Hematochezia, Other - Medications/Allergies Allergies/Adverse Reactions: Allergies Allergy/AdvReac Type Severity Reaction Status Date / Time No Known Allergies Allergy Verified 12/05/18 17:17 Medications: Current Medications Acetaminophen (Tylenol) 650 mg PO Q4H PRN PRN Reason: Headache/Fever/Mild Pain (1-3) Last Admin: 01/09/19 10:04 Dose: 650 mg Hydrocodone Bitart/Acetaminophen ([place] 5/325) 1 tab PO Q4H PRN PRN Reason: Moderate Pain (4-6) Last Admin: 01/10/19 04:17 Dose: 1 tab Hydrocodone Bitart/Acetaminophen ([place] 5/325) 2 tab PO Q4H PRN PRN Reason: Severe Pain (7-10) Last Admin: 01/08/19 17:50 Dose: 2 tab Albuterol/Ipratropium (Duoneb) 3 ml NEB Q4H PRN PRN Reason: Dyspnea/Wheezing/SOB Amiodarone HCl (Cordarone) 200 mg PO DAILY [facility] Last Admin: 01/10/19 08:22 Dose: 200 mg Aspirin (Ecotrin) 81 mg PO DAILY [facility] Last Admin: 01/10/19 08:22 Dose: 81 mg Benzonatate (Tessalon) 200 mg PO TID PRN PRN Reason: Cough Bisacodyl (Dulcolax) 10 mg [place] DAILYPRN PRN PRN Reason: Constipation Bisacodyl (Dulcolax) 10 mg PO DAILYPRN PRN PRN Reason: Constipation Enoxaparin Sodium (Lovenox) 40 mg SC 0900 [facility] Last Admin: 01/10/19 08:22 Dose: 40 mg Finasteride (Proscar) 5 mg PO DAILY [facility] Last Admin: 01/10/19 08:23 Dose: 5 mg Furosemide (Lasix) 20 mg SLOW IVP DAILY [facility] Last Admin: 01/10/19 08:23 Dose: 20 mg Guaifenesin (Mucinex) 600 mg PO Q12HR [facility]PL[facility] Last Admin: 01/10/19 08:23 Dose: 600 mg Miscellaneous Medication (Pharmacy To Dose) 1 each IVPB PRN PRN PRN Reason: Pharmacy to dose Ondansetron HCl (Zofran) 4 mg IVP Q6H PRN PRN Reason: Nausea/Vomiting Pantoprazole Sodium (Protonix) 40 mg PO DAILY [facility] Last Admin: 01/10/19 08:23 Dose: 40 mg Rosuvastatin Calcium (Crestor) 40 mg PO DAILY [facility] Last Admin: 01/10/19 08:23 Dose: 40 mg Senna/Docusate Sodium (Senokot S) 2 tab PO BID PRN PRN Reason: Constipation Sodium Chloride (Flush - Normal Saline) 10 ml IVF Q12HR [facility]PLACED [facility] Last Admin: 01/10/19 08:23 Dose: 10 ml Sodium Chloride (Flush - Normal Saline) 10 ml IVF PRN PRN PRN Reason: Saline Flush Tamsulosin HCl (Flomax) 0.4 mg PO HS [facility]PL[facility] Last Admin: 01/09/19 20:02 Dose: 0.4 mg
[2019-01-10] MEDS: Tamsulosin HCl 0.4 MG CAP PO SCH (21:43)
[2019-01-11] MEDS ORDERED: Potassium Chloride 20 MEQ TAB PO SCH (08:30)
[2019-01-11] MEDS: Aspirin 81 mg Enteric Coated Tablet PO SCH (08:33)
[2019-01-11] MEDS: Furosemide 20 MG/2 ML VIAL SLOW IVP SCH (08:33)
[2019-01-11] MEDS: Amiodarone 200 MG TAB PO SCH (08:33)
[2019-01-11] MEDS: Finasteride 5 MG TAB PO SCH (08:33)
[2019-01-11] MEDS: Rosuvastatin 20 MG TAB PO SCH (08:33)
[2019-01-11] MEDS: Enoxaparin Sodium 40 MG/0.4 ML SYRINGE SC SCH (08:33)
[2019-01-11] MEDS: guaiFENesin ER 600 MG TAB PO SCH ×2 (08:33→20:26)
[2019-01-11] MEDS: Pantoprazole 40 MG GRANULES PACKET PO SCH (08:34)
--- NOTE | 2019-01-11 15:18 | PDOC.PN ---
- Subjective Encounter Start Date: 01/11/19 Encounter Start Time: 10:15 Subjective: pt up in bed no complains, had couple bowel movements - Objective Resuscitation Status - Order Detail: 01/05/19 23:48 Resuscitation Status Routine Resuscitation Status: FULL: Full Resuscitation Discussed with: patient Vital Signs & Weight: Vital Signs (12 hours) Temp Pulse Resp BP Pulse Ox 01/11/19 11:45 98.3 F 83 18 93/59 L 91 L 01/11/19 08:00 98.5 F 83 18 116/65 93 L 01/11/19 03:57 97.6 F 74 17 104/60 100 Weight Admit Weight 167 lb Weight 166 lb 11.2 oz I&O: 01/10/19 01/11/19 01/12/19 06:59 06:59 06:59 Intake Total 1530 950 300 Output Total 750 0 Balance 780 950 300 Result Diagrams: 01/10/19 05:24 01/10/19 05:24 Phys Exam - Physical Examination Respiratory: no wheezing, no rales, no rhonchi, wheezing present, clear to auscultation bilateral Cardiovascular: RRR, no significant murmur, no rub, gallop, irregular Gastrointestinal: soft, non-tender, no distention, positive bowel sounds Musculoskeletal: no edema, pulses present, edema present Dx/Plan (1) Ischemia of right lower extremity Code(s): I99.8 - OTHER DISORDER OF CIRCULATORY SYSTEM Status: Acute Comment : Severe. S/P right AKA on 01/07/[address] Jama (2) Hypokalemia Code(s): E87.6 - HYPOKALEMIA Status: Acute Comment: repleting (3) Abnormal LFTs Code(s): R94.5 - ABNORMAL RESULTS OF LIVER FUNCTION STUDIES Status: Acute Comment: isolated transaminitis secondary to rhabdomyolysis (4) Paroxysmal atrial fibrillation with rapid ventricular response Code(s): I48.0 - PAROXYSMAL ATRIAL FIBRILLATION Status: Acute Comment: Currently in sinus. Not on anticoagulation. ? reason . ? Increased fall risk (5) Rhabdomyolysis Code(s): M62.82 - RHABDOMYOLYSIS Status: Acute Comment: resolving with IV fluids (6) HTN (hypertension) Code(s): I10 - ESSENTIAL (PRIMARY) HYPERTENSION Status: Chronic - Plan bp still labile, will monitor -: conitnue diuretics -: PT seen the pt, family wants inpatient rehab -: will ask surgeon if ok to start pt on AC * . Review of Systems - Review of Systems Respiratory: negative: Cough, Dry, Shortness of Breath, Hemoptysis, SOB with Excertion, Pleuritic Pain, Sputum, Wheezing Cardiovascular: negative: chest pain, palpitations, orthopnea, paroxysmal nocturnal dyspnea, edema, light headedness, other Gastrointestinal: negative: Nausea, Vomiting, Abdominal Pain, Diarrhea, Constipation, Melena, Hematochezia, Other - Medications/Allergies Allergies/Adverse Reactions: Allergies Allergy/AdvReac Type Severity Reaction Status Date / Time No Known Allergies Allergy Verified 12/05/18 17:17 Medications: Current Medications Acetaminophen (Tylenol) 650 mg PO Q4H PRN PRN Reason: Headache/Fever/Mild Pain (1-3) Last Admin: 01/09/19 10:04 Dose: 650 mg Hydrocodone Bitart/Acetaminophen ([place] 5/325) 1 tab PO Q4H PRN PRN Reason: Moderate Pain (4-6) Last Admin: 01/10/19 04:17 Dose: 1 tab Hydrocodone Bitart/Acetaminophen ([place] 5/325) 2 tab PO Q4H PRN PRN Reason: Severe Pain (7-10) Last Admin: 01/08/19 17:50 Dose: 2 tab Albuterol/Ipratropium (Duoneb) 3 ml NEB Q4H PRN PRN Reason: Dyspnea/Wheezing/SOB Amiodarone HCl (Cordarone) 200 mg PO DAILY [facility] Last Admin: 01/11/19 08:33 Dose: 200 mg Aspirin (Ecotrin) 81 mg PO DAILY [facility] Last Admin: 01/11/19 08:33 Dose: 81 mg Benzonatate (Tessalon) 200 mg PO TID PRN PRN Reason: Cough Bisacodyl (Dulcolax) 10 mg [place] DAILYPRN PRN PRN Reason: Constipation Bisacodyl (Dulcolax) 10 mg PO DAILYPRN PRN PRN Reason: Constipation Enoxaparin Sodium (Lovenox) 40 mg SC 0900 [facility] Last Admin: 01/11/19 08:33 Dose: 40 mg Finasteride (Proscar) 5 mg PO DAILY [facility] Last Admin: 01/11/19 08:33 Dose: 5 mg Furosemide (Lasix) 20 mg SLOW IVP DAILY [facility] Last Admin: 01/11/19 08:33 Dose: 20 mg Guaifenesin (Mucinex) 600 mg PO Q12HR [facility] Last Admin: 01/11/19 08:33 Dose: 600 mg Ondansetron HCl (Zofran) 4 mg IVP Q6H PRN PRN Reason: Nausea/Vomiting Pantoprazole Sodium (Protonix) 40 mg PO DAILY [facility] Last Admin: 01/11/19 08:34 Dose: 40 mg Rosuvastatin Calcium (Crestor) 40 mg PO DAILY [facility] Last Admin: 01/11/19 08:33 Dose: 40 mg Senna/Docusate Sodium (Senokot S) 2 tab PO BID PRN PRN Reason: Constipation Sodium Chloride (Flush - Normal Saline) 10 ml IVF Q12HR [facility] Last Admin: 01/11/19 08:34 Dose: 10 ml Sodium Chloride (Flush - Normal Saline) 10 ml IVF PRN PRN PRN Reason: Saline Flush Tamsulosin HCl (Flomax) 0.4 mg PO HS [facility] Last Admin: 01/10/19 21:43 Dose: 0.4 mg
[2019-01-11] MEDS: Tamsulosin HCl 0.4 MG CAP PO SCH (20:26)
[2019-01-12 08:43] LABS: Anion Gap 9 mmol/L (10-20); BUN (Urea Nitrogen) 10 mg/dL (8.4-25.7); Calc. Creatinine Clearance 80 mL/min (70-130); Calcium 8.1 mg/dL (7.8-10.44); Carbon Dioxide 34 mmol/L (23-31); Chloride 100 mmol/L (98-107); Estimated GFR-MDRD Greater than 90; Glucose 107 mg/dL (83-110); Potassium 3.6 mmol/L (3.5-5.1); Sodium 139 mmol/L (136-145)
[2019-01-12] MEDS: guaiFENesin ER 600 MG TAB PO SCH ×2 (09:27→21:27)
[2019-01-12] MEDS: Finasteride 5 MG TAB PO SCH (09:27)
[2019-01-12] MEDS: Aspirin 81 mg Enteric Coated Tablet PO SCH (09:27)
[2019-01-12] MEDS: Rosuvastatin 20 MG TAB PO SCH (09:27)
[2019-01-12] MEDS: Pantoprazole 40 MG GRANULES PACKET PO SCH (09:27)
[2019-01-12] MEDS: Amiodarone 200 MG TAB PO SCH (09:27)
[2019-01-12] MEDS: Enoxaparin Sodium 40 MG/0.4 ML SYRINGE SC SCH (09:28)
[2019-01-12] MEDS: Acetaminophen 325 MG TAB PO PRN (09:28)
[2019-01-12] MEDS: Furosemide 20 MG/2 ML VIAL SLOW IVP SCH (09:30)
--- NOTE | 2019-01-12 13:38 | RAD ---
XR Chest 1 View Portable HISTORY: Pleural effusion COMPARISON: 01/07/2019 FINDINGS: Changes of median sternotomy are again seen. Bilateral pleural effusions, right greater janie n left are again noted. There is mild interval improvement in this size of the left pleural effusion. The heart size is stable. The aorta is tortuous. No pneumothoraces are seen.
--- NOTE | 2019-01-12 14:27 | PDOC.PN ---
- Subjective Encounter Start Date: 01/12/19 Encounter Start Time: 09:00 Subjective: pt up in bed feels well - Objective Resuscitation Status - Order Detail: 01/05/19 23:48 Resuscitation Status Routine Resuscitation Status: FULL: Full Resuscitation Discussed with: patient Vital Signs & Weight: Vital Signs (12 hours) Temp Pulse Resp BP Pulse Ox 01/12/19 11:35 97.8 F 85 18 107/58 L 98 01/12/19 07:30 99.0 F 77 16 114/69 96 01/12/19 03:44 98.4 F 82 18 98/61 92 L Weight Admit Weight 167 lb Weight 166 lb 11.2 oz I&O: 01/11/19 01/12/19 01/13/19 06:59 06:59 06:59 Intake Total 950 1400 360 Output Total 1600 Balance 950 -200 360 Result Diagrams: 01/10/19 05:24 01/12/19 08:23 Phys Exam - Physical Examination Respiratory: no wheezing, no rales, no rhonchi, wheezing present, clear to auscultation bilateral Cardiovascular: RRR, no significant murmur, no rub, gallop, irregular Gastrointestinal: soft, non-tender, no distention, positive bowel sounds Musculoskeletal: no edema, pulses present, edema present Dx/Plan (1) Ischemia of right lower extremity Code(s): I99.8 - OTHER DISORDER OF CIRCULATORY SYSTEM Status: Acute Comment : Severe. S/P right AKA on 01/07/[address] Jama (2) Hypokalemia Code(s): E87.6 - HYPOKALEMIA Status: Acute Comment: repleting (3) Abnormal LFTs Code(s): R94.5 - ABNORMAL RESULTS OF LIVER FUNCTION STUDIES Status: Acute Comment: isolated transaminitis secondary to rhabdomyolysis (4) Paroxysmal atrial fibrillation with rapid ventricular response Code(s): I48.0 - PAROXYSMAL ATRIAL FIBRILLATION Status: Acute Comment: Currently in sinus. Not on anticoagulation. ? reason . ? Increased fall risk (5) Rhabdomyolysis Code(s): M62.82 - RHABDOMYOLYSIS Status: Acute Comment: resolving with IV fluids (6) HTN (hypertension) Code(s): I10 - ESSENTIAL (PRIMARY) HYPERTENSION Status: Chronic - Plan awaiting rehab eval -: continue lasix for now -: will start pt on AC since he has chronic afib * . Review of Systems - Review of Systems Respiratory: negative: Cough, Dry, Shortness of Breath, Hemoptysis, SOB with Excertion, Pleuritic Pain, Sputum, Wheezing Cardiovascular: negative: chest pain, palpitations, orthopnea, paroxysmal nocturnal dyspnea, edema, light headedness, other Gastrointestinal: negative: Nausea, Vomiting, Abdominal Pain, Diarrhea, Constipation, Melena, Hematochezia, Other - Medications/Allergies Allergies/Adverse Reactions: Allergies Allergy/AdvReac Type Severity Reaction Status Date / Time No Known Allergies Allergy Verified 12/05/18 17:17 Medications: Current Medications Acetaminophen (Tylenol) 650 mg PO Q4H PRN PRN Reason: Headache/Fever/Mild Pain (1-3) Last Admin: 01/12/19 09:28 Dose: 650 mg Hydrocodone Bitart/Acetaminophen ([place] 5/325) 1 tab PO Q4H PRN PRN Reason: Moderate Pain (4-6) Last Admin: 01/10/19 04:17 Dose: 1 tab Hydrocodone Bitart/Acetaminophen ([place] 5/325) 2 tab PO Q4H PRN PRN Reason: Severe Pain (7-10) Last Admin: 01/08/19 17:50 Dose: 2 tab Albuterol/Ipratropium (Duoneb) 3 ml NEB Q4H PRN PRN Reason: Dyspnea/Wheezing/SOB Amiodarone HCl (Cordarone) 200 mg PO DAILY [facility] Last Admin: 01/12/19 09:27 Dose: 200 mg Aspirin (Ecotrin) 81 mg PO DAILY [facility] Last Admin: 01/12/19 09:27 Dose: 81 mg Benzonatate (Tessalon) 200 mg PO TID PRN PRN Reason: Cough Bisacodyl (Dulcolax) [address] DAILYPRN PRN PRN Reason: Constipation Bisacodyl (Dulcolax) 10 mg PO DAILYPRN PRN PRN Reason: Constipation Enoxaparin Sodium (Lovenox) 40 mg SC 0900 [facility] Last Admin: 01/12/19 09:28 Dose: 40 mg Finasteride (Proscar) 5 mg PO DAILY [facility] Last Admin: 01/12/19 09:27 Dose: 5 mg Furosemide (Lasix) 20 mg SLOW IVP DAILY [facility] Last Admin: 05/13/19 09:30 Dose: 20 mg Guaifenesin (Mucinex) 600 mg PO Q12HR [facility] Last Admin: 01/12/19 09:27 Dose: 600 mg Ondansetron HCl (Zofran) 4 mg IVP Q6H PRN PRN Reason: Nausea/Vomiting Pantoprazole Sodium (Protonix) 40 mg PO DAILY [facility] Last Admin: 01/12/19 09:27 Dose: 40 mg Rosuvastatin Calcium (Crestor) 40 mg PO DAILY [facility] Last Admin: 01/12/19 09:27 Dose: 40 mg Senna/Docusate Sodium (Senokot S) 2 tab PO BID PRN PRN Reason: Constipation Sodium Chloride (Flush - Normal Saline) 10 ml IVF Q12HR [facility] Last Admin: 01/12/19 09:30 Dose: 10 ml Sodium Chloride (Flush - Normal Saline) 10 ml IVF PRN PRN PRN Reason: Saline Flush Tamsulosin HCl (Flomax) 0.4 mg PO HS [facility] Last Admin: 01/11/19 20:26 Dose: 0.4 mg
[2019-01-12] MEDS: Enoxaparin Sodium 80 MG/0.8 ML SYRINGE SC SCH (21:27)
[2019-01-12] MEDS: Tamsulosin HCl 0.4 MG CAP PO SCH (21:27)
[2019-01-13 06:41] LABS: Hemoglobin 9.7 g/dL (14.0-18.0); Platelet Count 261 thou/uL (130-400)
[2019-01-13 06:58] LABS: Calc. Creatinine Clearance 89 mL/min (70-130); Estimated GFR-MDRD Greater than 90
[2019-01-13] MEDS: Pantoprazole 40 MG GRANULES PACKET PO SCH (09:18)
[2019-01-13] MEDS: Rosuvastatin 20 MG TAB PO SCH (09:18)
[2019-01-13] MEDS: Enoxaparin Sodium 80 MG/0.8 ML SYRINGE SC SCH (09:18)
[2019-01-13] MEDS: guaiFENesin ER 600 MG TAB PO SCH ×2 (09:19→19:42)
[2019-01-13] MEDS: Aspirin 81 mg Enteric Coated Tablet PO SCH (09:19)
[2019-01-13] MEDS: Finasteride 5 MG TAB PO SCH (09:19)
[2019-01-13] MEDS: Amiodarone 200 MG TAB PO SCH (09:20)
[2019-01-13] MEDS: Furosemide 20 MG/2 ML VIAL SLOW IVP SCH (09:30)
[2019-01-13] MEDS: HYDROcodone/Acetaminophen 5/325 mg Tablet PO PRN (11:54)
--- NOTE | 2019-01-13 17:36 | PDOC.PN ---
- Subjective Encounter Start Date: 01/13/19 Encounter Start Time: 11:45 Subjective: pt up in bed feels well no complains - Objective Resuscitation Status - Order Detail: 01/05/19 23:48 Resuscitation Status Routine Resuscitation Status: FULL: Full Resuscitation Discussed with: patient Vital Signs & Weight: Vital Signs (12 hours) Temp Pulse Resp BP Pulse Ox 01/13/19 15:16 98.1 F 88 18 98/56 L 96 01/13/19 11:23 98.4 F 83 20 110/61 95 01/13/19 07:47 98.2 F 86 20 119/71 98 Weight Admit Weight 167 lb Weight 162 lb 4.8 oz I&O: 01/12/19 01/13/19 01/14/19 06:59 06:59 06:59 Intake Total 1400 1300 Output Total 1600 1645 Balance -200 -345 Result Diagrams: 01/13/19 05:52 01/13/19 05:52 Phys Exam - Physical Examination Respiratory: no wheezing, no rales, no rhonchi, wheezing present, clear to auscultation bilateral Cardiovascular: RRR, no significant murmur, no rub, gallop, irregular Gastrointestinal: soft, non-tender, no distention, positive bowel sounds right aka Dx/Plan (1) Ischemia of right lower extremity Code(s): I99.8 - OTHER DISORDER OF CIRCULATORY SYSTEM Status: Acute Comment : Severe. S/P right AKA on 01/07/[address] Jama (2) Hypokalemia Code(s): E87.6 - HYPOKALEMIA Status: Acute Comment: repleting (3) Abnormal LFTs Code(s): R94.5 - ABNORMAL RESULTS OF LIVER FUNCTION STUDIES Status: Acute Comment: isolated transaminitis secondary to rhabdomyolysis (4) Paroxysmal atrial fibrillation with rapid ventricular response Code(s): I48.0 - PAROXYSMAL ATRIAL FIBRILLATION Status: Acute Comment: Currently in sinus. Not on anticoagulation. ? reason . ? Increased fall risk (5) Rhabdomyolysis Code(s): M62.82 - RHABDOMYOLYSIS Status: Acute Comment: resolving with IV fluids (6) HTN (hypertension) Code(s): I10 - ESSENTIAL (PRIMARY) HYPERTENSION Status: Chronic - Plan pt has pleural effusion, he is asymtomatic will get pulm -: to see if he needs a thoracentesis. Pleural effusion most likely due to -: heart failure. will continue diuretics. Family does not want snf -: spoke with both son's and with case managment in the room -: all questions answered. Plan to discharge pt home with home PT * . per family request. Review of Systems - Review of Systems Respiratory: negative: Cough, Dry, Shortness of Breath, Hemoptysis, SOB with Excertion, Pleuritic Pain, Sputum, Wheezing Cardiovascular: negative: chest pain, palpitations, orthopnea, paroxysmal nocturnal dyspnea, edema, light headedness, other Gastrointestinal: negative: Nausea, Vomiting, Abdominal Pain, Diarrhea, Constipation, Melena, Hematochezia, Other - Medications/Allergies Allergies/Adverse Reactions: Allergies Allergy/AdvReac Type Severity Reaction Status Date / Time No Known Allergies Allergy Verified 12/05/18 17:17 Medications: Current Medications Acetaminophen (Tylenol) 650 mg PO Q4H PRN PRN Reason: Headache/Fever/Mild Pain (1-3) Last Admin: 01/12/19 09:28 Dose: 650 mg Hydrocodone Bitart/Acetaminophen ([place] 5/325) 1 tab PO Q4H PRN PRN Reason: Moderate Pain (4-6) Last Admin: 01/13/19 11:54 Dose: 1 tab Hydrocodone Bitart/Acetaminophen ([place] 5/325) 2 tab PO Q4H PRN PRN Reason: Severe Pain (7-10) Last Admin: 01/08/19 17:50 Dose: 2 tab Albuterol/Ipratropium (Duoneb) 3 ml NEB Q4H PRN PRN Reason: Dyspnea/Wheezing/SOB Amiodarone HCl (Cordarone) 200 mg PO DAILY [facility] Last Admin: 01/13/19 09:20 Dose: 200 mg Aspirin (Ecotrin) 81 mg PO DAILY [facility] Last Admin: 01/13/19 09:19 Dose: 81 mg Benzonatate (Tessalon) 200 mg PO TID PRN PRN Reason: Cough Bisacodyl (Dulcolax) 10 mg [place] DAILYPRN PRN PRN Reason: Constipation Bisacodyl (Dulcolax) 10 mg PO DAILYPRN PRN PRN Reason: Constipation Enoxaparin Sodium (Lovenox) 75 mg SC 0900,2100 [facility] Last Admin: 01/13/19 09:18 Dose: 75 mg Finasteride (Proscar) 5 mg PO DAILY [facility] Last Admin: 01/13/19 09:19 Dose: 5 mg Furosemide (Lasix) 40 mg SLOW IVP DAILY [facility] Last Admin: 01/13/19 09:30 Dose: 40 mg Guaifenesin (Mucinex) 600 mg PO Q12HR [facility] Last Admin: 01/13/19 09:19 Dose: 600 mg Ondansetron HCl (Zofran) 4 mg IVP Q6H PRN PRN Reason: Nausea/Vomiting Pantoprazole Sodium (Protonix) 40 mg PO DAILY [facility] Last Admin: 01/13/19 09:18 Dose: 40 mg Rosuvastatin Calcium (Crestor) 40 mg PO DAILY [facility] Last Admin: 01/13/19 09:18 Dose: 40 mg Senna/Docusate Sodium (Senokot S) 2 tab PO BID PRN PRN Reason: Constipation Sodium Chloride (Flush - Normal Saline) 10 ml IVF Q12HR [facility] Last Admin: 01/13/19 09:20 Dose: 10 ml Sodium Chloride (Flush - Normal Saline) 10 ml IVF PRN PRN PRN Reason: Saline Flush Tamsulosin HCl (Flomax) 0.4 mg PO HS [facility] Last Admin: 01/12/19 21:27 Dose: 0.4 mg
[2019-01-13] MEDS: Apixaban 5 MG TAB PO SCH (19:42)
[2019-01-13] MEDS: Tamsulosin HCl 0.4 MG CAP PO SCH (19:42)
--- NOTE | 2019-01-13 20:11 | CON ---
DATE OF CONSULTATION: 01/13/2019 SERVICE: Pulmonary Medicine. REASON FOR CONSULTATION: Pleural effusion. HISTORY OF PRESENT ILLNESS: The patient is a very pleasant 88-year-old male with past medical history significant for an unfortunate series of events. He has severe peripheral vascular disease and ultimately, had lack of blood flow to the leg. He ended up being treated for rhabdomyolysis with very aggressive fluid resuscitation. Ultimately, he required an amputation either way. He is currently postop day 6 from that procedure. Currently, he has absolutely no shortness of breath. We have a chest x-ray on the and on the 12 of January. Both of these showed a pleural effusion. In truth, the pleural effusion is getting much smaller. He had not had any fevers or chills. Otherwise, he seems to be progressing as expected. PAST MEDICAL HISTORY: 1. Coronary artery disease. 2. Peripheral vascular disease, horrendous. 3. Hypertension. 4. History of peptic ulcer disease. 5. Atrial fibrillation. PAST SURGICAL HISTORY: 1. Coronary artery bypass graft. 2. Amputation of the right leg, above the knee. FAMILY HISTORY: Noncontributory. SOCIAL HISTORY: Negative for alcohol, tobacco, or illicit drug use currently. He has no exposure to chemicals, dust, asbestos, or tuberculosis. ALLERGIES: NO KNOWN DRUG ALLERGIES. MEDICATIONS: List of his inpatient medications was reviewed. No specific updates were made at this time. REVIEW OF SYSTEMS: General; head, ears, eyes, nose, and throat; cardiovascular; respiratory; GI; ; musculoskeletal; neurologic; and skin is negative except as mentioned in the HPI. PHYSICAL EXAMINATION: VITAL SIGNS: Afebrile, pulse 83, blood pressure 110/61, respirations 20, and saturation 95% on room air. GENERAL: The patient is awake and alert, in no apparent distress. LUNGS: Decent air entry. No prolonged expiratory phase, wheezing, crackles, or rhonchi are present. HEART: Normal rate and regular. ABDOMEN: Soft, nontender, nondistended. Bowel sounds are positive. MUSCULOSKELETAL: No cyanosis or clubbing. There is trace to 1+ pitting in the bilateral lower extremities. NEUROLOGIC: Grossly nonfocal. LABORATORY DATA: WBC 10.9, hemoglobin 9.7 and roughly stable, platelets 261, 000. INR 1.2. Basic metabolic profile is unremarkable, creatinine 0.7. Liver function studies are essentially unremarkable other than an AST that is beautifully downtrending to 40. Total bilirubin falls within the normal limits. CK had previously peaked out at 4000, but is currently normal at 80. Blood cultures x2 are unremarkable. IMAGING: Chest x-ray on 01/07 and on 01/12 were reviewed. These chest x-rays demonstrated interval improvement in the effusions. There is a bilateral effusion. On the right, it is greater than the left. Of note, on December 19, there was no effusion present. ASSESSMENT: 1. Pleural effusion, bilateral. 2. Recent rhabdomyolysis, status post aggressive fluid resuscitation. 3. Paroxysmal atrial fibrillation. 4. Ischemia of the right lower extremity, status post above knee amputation, postop day 6. DISCUSSION AND PLAN: At this point, I really do not think any aggressive management is required for these pleural effusions. They are getting smaller. I believe they are there because of the aggressive resuscitation needed for the recent rhabdomyolysis. We will continue to diurese to euvolemia. The patient will require repeat chest x-ray in the outpatient setting in 2 to 4 weeks. At that point, if the effusions persist, thoracentesis can be considered. At this point, I have very little suspicion for any type of acute infectious process. I will monitor for signs of sepsis, and if present, panculture will be considered as well as a thoracentesis sooner. Dr. Saenz will assume care in the morning as he has previously established relationship with Mr. Johnson. 70 minutes have been devoted to this patient in various activities. I personally reviewed all imaging studies and laboratory data noted within this document. For fifty percent of this time, I was interacting with the patient at the bedside or coordinating care with the care team. For the remainder of the time I was immediately available to the patient in the hospital unit. Job ID: [id number] MTDD
[2019-01-14] MEDS: guaiFENesin ER 600 MG TAB PO SCH (09:36)
[2019-01-14] MEDS: Aspirin 81 mg Enteric Coated Tablet PO SCH (09:36)
[2019-01-14] MEDS: Amiodarone 200 MG TAB PO SCH (09:36)
[2019-01-14] MEDS: Finasteride 5 MG TAB PO SCH (09:36)
[2019-01-14] MEDS: Furosemide 20 MG/2 ML VIAL SLOW IVP SCH (09:36)
[2019-01-14] MEDS: Rosuvastatin 20 MG TAB PO SCH (09:36)
[2019-01-14] MEDS: Apixaban 5 MG TAB PO SCH (09:36)
[2019-01-14] MEDS: Pantoprazole 40 MG GRANULES PACKET PO SCH (09:36)
[2019-01-14] MEDS: HYDROcodone/Acetaminophen 5/325 mg Tablet PO PRN (09:36)
[2019-01-14 09:44] LABS: #Eosinphils 0.1 thou/uL (0.0-0.7); #Lymphocytes 0.9 thou/uL (1.20-3.40); #Monocytes 0.6 thou/uL (0.11-0.59); #Neutrophils 9.1 thou/uL (1.40-6.50); %Basophils 0.3 % (0.0-1.0); %Eosinophils 0.8 % (0.0-10.0); %Lymphocytes 8.7 % (21.0-51.0); %Monocytes 5.5 % (0.0-10.0); %Neutrophils 84.7 % (42.0-75.0); Hemoglobin 10.8 g/dL (14.0-18.0); Mean Corpuscular HGB CONC 32.7 g/dL (32.0-36.0); Mean Corpuscular Hemoglobin 32.7 pg (27.0-31.0); Mean Platelet Volume 6.3 fL (7.4-10.4); Platelet Count 256 thou/uL (130-400); RBC Distribution Width 13.9 % (11.5-14.5); Red Blood Cell (RBC) Count 3.29 mill/uL (4.70-6.10); White Blood Cell (WBC) Count 10.7 thou/uL (4.8-10.8)
[2019-01-14 10:00] LABS: Anion Gap 11 mmol/L (10-20); BUN (Urea Nitrogen) 12 mg/dL (8.4-25.7); Calc. Creatinine Clearance 75 mL/min (70-130); Calcium 8.6 mg/dL (7.8-10.44); Carbon Dioxide 29 mmol/L (23-31); Chloride 102 mmol/L (98-107); Estimated GFR-MDRD Greater than 90; Glucose 124 mg/dL (83-110); Potassium 3.9 mmol/L (3.5-5.1); Sodium 138 mmol/L (136-145)
[2019-01-14 15:32] VITALS: BP 108/62; TEMP 98.1
[2019-01-14 15:59] VITALS: BMI 23.4
--- NOTE | 2019-01-14 18:07 | PRG ---
DATE OF SERVICE: 01/14/2019 SUBJECTIVE: Sudhir Johnson is hard of hearing, but has no complaints. He is in no distress. OBJECTIVE: VITAL SIGNS: He is afebrile. Heart rate 77, respiratory rate is 20, oximetry is 92% on room air, blood pressure is 100/57. LUNGS: Clear. HEART: Regular rhythm. ABDOMEN: Soft. EXTREMITIES: His right AKA incision appears to be healing. IMPRESSION: 1. Bilateral effusions related to atrial fibrillation. 2. Rhabdomyolysis. 3. Status post right [id number] amputation. I have explained to the son that they should not try to ever get him walking again. My goal of care would be to get him where he can transfer to a wheelchair and keep him in a wheelchair. The chances of this 88-year-old gentleman learning to walk with [id number] amputation prosthesis is close to zero in my opinion. Apparently, the sons have requested to go ahead and take him home. I will see him as needed in the future. Job ID: [id number]
== END 2019-01-14 18:12 | disposition home or self-care (01) | DRG 854 ==
LOC: ERS 19:55 → 2NO 01-06 00:18
PROVIDERS: ADMIT Internal Medicine; ATTEND Internal Medicine
PROC: 0Y6C0Z3 Detachment at Right Upper Leg, Low, Open Approach (ICD-10-PCS; principal; 2019-01-07)
DX: A41.9 Sepsis, unspecified organism (principal); M62.82 Rhabdomyolysis; J91.8 Pleural effusion in other conditions classified elsewhere; I70.261 Atherosclerosis of native arteries of extremities with gangrene, right leg; I25.10 Atherosclerotic heart disease of native coronary artery without angina pectoris; I10 Essential (primary) hypertension; D53.9 Nutritional anemia, unspecified; E87.6 Hypokalemia; E78.5 Hyperlipidemia, unspecified; N40.0 Benign prostatic hyperplasia without lower urinary tract symptoms; I48.0 Paroxysmal atrial fibrillation; F03.90 Unspecified dementia, unspecified severity, without behavioral disturbance, psychotic disturbance, mood disturbance, and anxiety; Z95.1 Presence of aortocoronary bypass graft; Z87.11 Personal history of peptic ulcer disease; Z79.899 Other long term (current) drug therapy; Z79.82 Long term (current) use of aspirin
CPT/HCPCS: 36415; 71045; 80048; 80053; 80076; 80202; 81003; 81015; 82550; 82553; 82565; 83605; 83735; 84484; 85014; 85018; 85025; 85049; 85610; 85730; 86850; 86900; 86901; 87040; 88307; 88311; 93005; 94760; 96361; 96365; 96367; 96375; C1725; J1650; J1940; J2001; J2270; J2543; J2704; J3010; J3370; J3480; J3490; J7050; P9047